=== PATIENT | male | born 1940 | race Caucasian/White ===

== ENCOUNTER 2020-07-27 12:43 | Emergency (ER) | payer MEDICARE, BC ==
[2020-07-27] MEDS ORDERED: Sodium Chloride 0.9% 10 ML Syringe FLUSH PRN (13:14)
[2020-07-27] MEDS ORDERED: Morphine 2 MG/ML SYRINGE IVPUSH ONE ×2 (13:14→14:57)
[2020-07-27] MEDS ORDERED: Ondansetron 4 MG/2 ML SDV IVPUSH ONE (13:14)
--- NOTE | 2020-07-27 13:31 | EDM.PDOC ---
ED HPI GENERAL MEDICAL PROBLEM - General Chief Complaint: Lower Extremity Injury/Pain Stated Complaint: FELL, UNABLE TO STAND Time Seen by Provider: 07/27/20 13:10 Source of Information: Reports: Patient History Limitations: Reports: No Limitations - History of Present Illness INITIAL COMMENTS - FREE TEXT/NARRATIVE: This 80 yo male patient reports to the ED with bilateral knee and bilateral shoulder pain. The patient reports his left leg "gave" out on him yesterday as he was walking out of his bedroom. The patient reports he ended up falling forward in his knees stopping his fall by using his arms. The patient reports he has experienced increased pain over the past 24 hours. The patient reports pain rated at a 10/10 in his left knee. Onset Date: 07/26/20 Duration: Constant, Getting Worse Location: Reports: Upper Extremity, Left (shoulder), Upper Extremity, Right (shoulder), Lower Extremity, Left (knee), Lower Extremity, Right (knee) Quality: Reports: Ache Severity: Moderate Improves with: Reports: None Worsens with: Reports: None Context: Reports: Activity (ground level fall) Associated Symptoms: Reports: No Other Symptoms Bilateral Knee Pain Score (Numeric/FACES): 10 - Related Data Allergies Allergy/AdvReac Type Severity Reaction Status Date / Time No Known Allergies Allergy Verified 07/27/20 13:01 Home Meds: Home Meds Aspirin [Halfprin] 81 mg PO DAILY 06/16/13 [History] Benazepril [Lotensin] 20 mg PO DAILY 06/16/13 [History] Omeprazole 20 mg PO DAILY 06/16/13 [History] amLODIPine [Norvasc] 5 mg PO DAILY 06/16/13 [History] hydroCHLOROthiazide [Hydrochlorothiazide] 25 mg PO DAILY 06/16/13 [History] Colestipol [Colestipol HCl] 1 gm PO DAILY 07/27/20 [History] Ezetimibe [Zetia] 10 mg PO DAILY 07/27/20 [History] Furosemide 20 mg PO DAILY 07/27/20 [History] Metoprolol Succinate 25 mg PO DAILY 07/27/20 [History] cilostazoL [Pletal] 100 mg PO DAILY 07/27/20 [History] Review of Systems - Review of Systems Review Of Systems: Comprehensive ROS is negative, except as noted in HPI. ED EXAM, GENERAL - Physical Exam Exam: See Below Exam Limited By: No Limitations General Appearance: Alert, WD/WN, Moderate Distress Eye Exam: Bilateral Eye: EOMI, Normal Inspection, PERRL Ears: Normal External Exam, Normal Canal, Hearing Grossly Normal, Normal TMs Nose: Normal Inspection, Normal Mucosa, No Blood Throat/Mouth: Normal Inspection, Normal Lips, Normal Teeth, Normal Gums, Normal Oropharynx, Normal Voice, No Airway Compromise Head: Atraumatic, Normocephalic Neck: Normal Inspection, Supple, Non-Tender, Full Range of Motion Respiratory/Chest: No Respiratory Distress, Lungs Clear, Normal Breath Sounds, No Accessory Muscle Use, Chest Non-Tender Cardiovascular: Normal Peripheral Pulses, Regular Rate, Rhythm, No Edema, No Gallop, No JVD, No Murmur, No Rub GI/Abdominal: Normal Bowel Sounds, Soft, Non-Tender, No Organomegaly, No Distention, No Abnormal Bruit, No Mass (Male) Exam: Deferred Rectal (Males) Exam: Deferred Back Exam: Normal Inspection, Full Range of Motion, NT Extremities: Normal Inspection, Normal Range of Motion, Non-Tender, Normal Capillary Refill, No Pedal Edema Neurological: Alert, Oriented, CN II-XII Intact, Normal Cognition, Normal Gait, Normal Reflexes, No Motor/Sensory Deficits Psychiatric: Normal Affect, Normal Mood Skin Exam: Warm, Dry, Intact, Normal Color, No Rash Lymphatic: No Adenopathy Course - Vital Signs Last Recorded V/S: Last Vital Signs Temp 37.4 C 07/27/20 12:57 Pulse 87 07/27/20 12:57 Resp 16 07/27/20 12:57 BP 112/58 L 07/27/20 12:57 Pulse Ox 99 07/27/20 12:57 - Orders/Labs/Meds Orders: Active Orders 24 hr Category Date Time Status Sodium Chloride 0.9% [Saline Flush] Med 07/27/20 13:14 Ordered 10 ml FLUSH ASDIRECTED PRN Saline Lock Insert [OM.PC] Routine Oth 07/27/20 13:14 Ordered Medication Orders Sodium Chloride (Saline Flush) 10 ml FLUSH ASDIRECTED PRN PRN Reason: Keep Vein Open Last Admin: 07/27/20 13:36 Dose: 10 ml Documented by: [email or web address] Meds: Medications Generic Name Dose Route Start Last Admin Trade Name Freq PRN Reason Stop Dose Admin Sodium Chloride 10 ml 07/27/20 13:14 07/27/20 13:36 Saline Flush FLUSH 10 ml ASDIRECTED PRN Administration Keep Vein Open Discontinued Medications Generic Name Dose Route Start Last Admin Trade Name Kvng PRN Reason Stop Dose Admin Hydrocodone Bitart/Acetaminophen 1 tab 07/27/20 14:57 [place] 325-10 Mg PO 07/27/20 14:58 ONETIME ONE Morphine Sulfate 2 mg 07/27/20 13:14 07/27/20 13:29 Morphine IVPUSH 07/27/20 13:15 2 mg ONETIME ONE Administration Morphine Sulfate 2 mg 07/27/20 14:57 Morphine IVPUSH 07/27/20 14:58 ONETIME ONE Ondansetron HCl 4 mg 07/27/20 13:14 07/27/20 13:29 Zofran IVPUSH 07/27/20 13:15 4 mg ONETIME ONE Administration Departure - Departure Time of Disposition: 14:59 Disposition: Home, Self-Care 01 Condition: Fair Clinical Impression: Strain of left knee Qualifiers: Encounter type: initial encounter Qualified Code(s): S86.912A - Strain of unspecified muscle(s) and tendon(s) at lower leg level, left leg, initial encounter Strain of right knee Qualifiers: Encounter type: initial encounter Qualified Code(s): S86.911A - Strain of unspecified muscle(s) and tendon(s) at lower leg level, right leg, initial encounter Contusion Qualifiers: Encounter type: initial encounter Contusion area: knee Laterality: unspecified laterality Qualified Code(s): S80.00XA - Contusion of unspecified knee, initial encounter - Discharge Information *PRESCRIPTION DRUG MONITORING PROGRAM REVIEWED*: Not Applicable *COPY OF PRESCRIPTION DRUG MONITORING REPORT IN PATIENT MIGUEL: Not Applicable Instructions: Contusion, [id number], How to Use a Knee Immobilizer, [id number] Forms: ED Department Discharge Care Plan Goals: The patient was advised of the examination and x-ray results during the visit. The patient was placed in a left knee immobilizer while in the ED. The patient was given IV and oral pain medications during the visit. The patient was discharged with a script for [place] () #12 to take 1 by mouth every hours as needed for pain. If the patient has any symptoms or concerns, the patient should either return to the emergency department or visit his primary care facility. Sepsis Event Note (ED) - Evaluation Sepsis Screening Result: No Definite Risk - Focused Exam Vital Signs: Vital Signs Temp Pulse Resp BP Pulse Ox 07/27/20 12:57 37.4 C 87 16 112/58 L 99 - My Orders Last 24 Hours: My Active Orders 07/27/20 13:14 Sodium Chloride 0.9% [Saline Flush] 10 ml FLUSH ASDIRECTED PRN Saline Lock Insert [OM.PC] Routine - Assessment/Plan Last 24 Hours: My Active Orders 07/27/20 13:14 Sodium Chloride 0.9% [Saline Flush] 10 ml FLUSH ASDIRECTED PRN Saline Lock Insert [OM.PC] Routine
--- NOTE | 2020-07-27 14:20 | CR ---
EXAMINATION: Shoulder Comp Lt SEX: Male AGE: 80 years CLINICAL HISTORY: 80-year-old male injured in ground-level fall. Interpretation: Normal bone mineral density for age and gender. Elevation humeral head relative to the glenoid of the scapula suggesting rotator cuff impingement and/or tear. No juxta articular rotator cuff tendon calcifications. Chronic mild arthritic reactive changes ipsilateral left acromioclavicular joint. No sign of acute left shoulder fracture or dislocation. Underlying ribs upper left hemithorax unremarkable. No pneumothorax.
--- NOTE | 2020-07-27 14:44 | CR ---
EXAMINATION: Shoulder 2 views Comp Rt SEX: Male AGE: 80 years CLINICAL HISTORY: 80-year-old male injured in ground-level fall. Interpretation: Abnormal elevation humeral head relative to the glenoid of the scapula suggests chronic rotator cuff degeneration or tear. No juxta-articular rotator cuff tendon calcifications (small Hill-Sachs deformity). Mild reactive arthritic changes ipsilateral acromioclavicular joint. Good bone mineral density for age and gender. No sign of acute right shoulder fracture or glenohumeral dislocation. Acromioclavicular joint intact. Underlying rib fractures upper right hemithorax. Right lung apex clear. No change artifact.
--- NOTE | 2020-07-27 14:47 | CR ---
EXAMINATION: Knee 3V Rt SEX: Male AGE: 80 years CLINICAL HISTORY: 80-year-old male injured knee ground-level fall. Interpretation: Homogeneous normal bone mineral density for age. Mild reactive arthritic changes involving the patellofemoral and knee joint (particularly medial compartment). Mild prepatellar soft tissue swelling. *No sign of right knee fracture, dislocation or radiopaque loose joint body. Extensive arteriovascular calcifications and fine surgical wire (stent) distal popliteal/proximal tibial artery posteriorly.
--- NOTE | 2020-07-27 14:48 | CR ---
EXAMINATION: Knee 3V Lt SEX: Male AGE: 80 years CLINICAL HISTORY: 6-year-old male injured in ground-level fall. Interpretation (3 views) while prepatellar soft tissue swelling and small left knee joint effusion. Chronic reactive arthritic changes patellofemoral and knee (medial) joint compartment. Good bone mineral density for age. No sign of left knee fracture, dislocation or radiopaque loose joint body. Extensive arteriovascular calcifications. No foreign bodies.
[2020-07-27] MEDS ORDERED: Acetaminophen/HYDROcodone 325-10 MG Tab PO ONE (14:57)
== END 2020-07-27 15:50 | disposition home or self-care (01) ==
LOC: DL.ED 12:43
DX: S86.911A Strain of unspecified muscle(s) and tendon(s) at lower leg level, right leg, initial encounter (principal); S86.912A Strain of unspecified muscle(s) and tendon(s) at lower leg level, left leg, initial encounter; Z79.82 Long term (current) use of aspirin; Z79.899 Other long term (current) drug therapy; W19.XXXA Unspecified fall, initial encounter
CPT/HCPCS: 73030; 73562; 96374; 96375; 96376; 99284; A9270; J2270; J2405; 99283

== ENCOUNTER 2020-07-28 10:34 | Inpatient (IN) | payer MEDICARE, BC ==
--- NOTE | 2020-07-28 11:33 | EDM.PDOC ---
ED HPI GENERAL MEDICAL PROBLEM - General Chief Complaint: Lower Extremity Injury/Pain Stated Complaint: CANT WALK Time Seen by Provider: 07/28/20 11:15 Source of Information: Reports: Patient History Limitations: Reports: No Limitations - History of Present Illness INITIAL COMMENTS - FREE TEXT/NARRATIVE: This 80 yo male patient was brought to the ED by [facility] due to increased pain in his knees and increased weakness in his upper extremities. The patient was seen in the ED yesterday due to a ground level fall. During the visit yesterday, the patient did have his knees and shoulders x-rayed, was placed in a left knee immobilizer and discharged with pain medication. The patient reports he has not been able to ambulate while at home due to the inability to get himself out of the bed. The patient does have a history of cervical stenosis as evidenced on previous CT/MRI. The patient also reports he has been having a difficult time with bowel movements due to constipation for the past couple of days. Onset Date: 07/27/20 Duration: Constant Location: Reports: Upper Extremity, Left, Upper Extremity, Right, Lower Extremity, Left, Lower Extremity, Right Quality: Reports: Ache, Sharp Severity: Moderate Improves with: Reports: Rest Worsens with: Reports: Movement Context: Reports: Activity Knee Pain Score (Numeric/FACES): 8 - Related Data Allergies Allergy/AdvReac Type Severity Reaction Status Date / Time No Known Allergies Allergy Verified 07/27/20 13:01 Home Meds: Home Meds Aspirin [Halfprin] 81 mg PO DAILY 06/16/13 [History] Benazepril [Lotensin] 20 mg PO DAILY 06/16/13 [History] Omeprazole 20 mg PO DAILY 06/16/13 [History] amLODIPine [Norvasc] 5 mg PO DAILY 06/16/13 [History] hydroCHLOROthiazide [Hydrochlorothiazide] 25 mg PO DAILY 06/16/13 [History] Colestipol [Colestipol HCl] 1 gm PO DAILY 07/27/20 [History] Ezetimibe [Zetia] 10 mg PO DAILY 07/27/20 [History] Furosemide 20 mg PO DAILY 07/27/20 [History] Metoprolol Succinate 25 mg PO DAILY 07/27/20 [History] cilostazoL [Pletal] 100 mg PO DAILY 07/27/20 [History] Past Medical History Cardiovascular History: Reports: Arrhythmia, Blood Clots/VTE/DVT, CAD, High Cholesterol, Hypertension Musculoskeletal History: Reports: Other (See Below) Other Musculoskeletal History: left knee sprain - Past Surgical History Cardiovascular Surgical History: Reports: Carotid Endarterectomy GI Surgical History: Reports: Appendectomy Social & Family History - Tobacco Use Tobacco Use Status *Q: Current Every Day Tobacco User Years of Tobacco use: 50 Packs/Tins Daily: 1 Second Hand Smoke Exposure: No - Caffeine Use Caffeine Use: Reports: Coffee - Recreational Drug Use Recreational Drug Use: No Review of Systems - Review of Systems Review Of Systems: Comprehensive ROS is negative, except as noted in HPI. ED EXAM, GENERAL - Physical Exam Exam: See Below Exam Limited By: No Limitations General Appearance: Alert, WD/WN, Moderate Distress Eye Exam: Bilateral Eye: EOMI, Normal Inspection, PERRL Ears: Normal External Exam, Normal Canal, Hearing Grossly Normal, Normal TMs Nose: Normal Inspection, Normal Mucosa, No Blood Throat/Mouth: Normal Inspection, Normal Lips, Normal Teeth, Normal Gums, Normal Oropharynx, Normal Voice, No Airway Compromise Head: Atraumatic, Normocephalic Neck: Normal Inspection, Supple, Non-Tender, Limited Range of Motion (chronic) Respiratory/Chest: No Respiratory Distress, Lungs Clear, Normal Breath Sounds, No Accessory Muscle Use, Chest Non-Tender Cardiovascular: Normal Peripheral Pulses, No Gallop, No JVD, No Murmur, No Rub, Irregularly Irregular GI/Abdominal: Normal Bowel Sounds, Soft, Non-Tender, No Organomegaly, No Distention, No Abnormal Bruit, No Mass (Male) Exam: Deferred Rectal (Males) Exam: Deferred Back Exam: Normal Inspection, Full Range of Motion, NT Extremities: Arm Pain (increased shoulder weakness and tenderness with movement. ), Leg Pain (bilateral knee pain (left worse than right)) Neurological: Alert, Oriented, CN II-XII Intact, Normal Cognition, Normal Gait, Normal Reflexes, No Motor/Sensory Deficits Psychiatric: Normal Affect, Normal Mood Skin Exam: Warm, Dry, Intact, Normal Color, No Rash Lymphatic: No Adenopathy Course - Vital Signs Last Recorded V/S: Last Vital Signs Temp 37.1 C 07/28/20 11:08 Pulse 99 07/28/20 11:08 Resp 16 07/28/20 11:08 BP 110/56 L 07/28/20 11:08 Pulse Ox 100 07/28/20 11:08 - Orders/Labs/Meds Orders: Active Orders 24 hr Category Date Time Status EKG Documentation Completion [RC] STAT Care 07/28/20 11:24 Active CULTURE URINE [RM] Urgent Lab 07/28/20 12:32 Received Labs: Laboratory Tests 07/28/20 07/28/20 07/28/20 Range/Units 11:39 11:39 12:32 WBC 11.9 H (5.0-10.0) 10^3/uL RBC 3.88 L (4.6-6.2) 10^6/uL Hgb 12.0 L (14.0-18.0) g/dL Hct 35.1 L (40.0-54.0) % MCV 90.5 (80-100) fL MCH 30.9 (27.0-34.0) pg MCHC 34.2 (33.0-35.0) g/dL Plt Count 225 (150-450) 10^3/uL Neut % (Auto) 73.5 (42.2-75.2) % Lymph % (Auto) 7.5 L (20.5-50.1) % Powell % (Auto) 18.4 H (2-8) % Eos % (Auto) 0.2 L (1.0-3.0) % Baso % (Auto) 0.4 (0.0-1.0) % Sodium 138 (136-145) mmol/L Potassium 4.3 (3.5-5.1) mmol/L Chloride 100 (98-107) mmol/L Carbon Dioxide 23 (21-32) mmol/L Anion Gap 19.3 H (7-13) mEq/L BUN 44 H (7-18) mg/dL Creatinine 1.37 H (0.70-1.30) mg/dL Est Cr Clr Drug Dosing 42.92 mL/min Estimated GFR (MDRD) 50 BUN/Creatinine Ratio 32.1 (No establ ref range) Glucose 97 (74-99) mg/dL Calcium 8.9 (8.5-10.1) mg/dL Total Bilirubin 1.3 H (0.2-1.0) mg/dL AST 40 H (15-37) U/L ALT 29 (16-63) U/L Alkaline Phosphatase 87 (46-116) U/L Troponin I 0.024 (0.000-0.056) ng/mL Total Protein 7.8 (6.4-8.2) g/dL Albumin 3.8 (3.4-5.0) g/dL Globulin 4.0 Albumin/Globulin Ratio 0.9 Urine Color Yellow (YELLOW) Urine Appearance Slightly cloudy (CLEAR) Urine pH 5.0 (5.0-9.0) Ur Specific Salome 1.020 (1.005-1.030) Urine Protein Trace H (NEGATIVE) Urine Glucose (UA) Negative (NEGATIVE) Urine Ketones Negative (NEGATIVE) Urine Occult Blood Trace-intact H (NEGATIVE) Urine Nitrite Negative (NEGATIVE) Urine Bilirubin Negative (NEGATIVE) Urine Urobilinogen 1.0 (0.2-1.0) mg/dL Ur Leukocyte Esterase Small H (NEGATIVE) Urine RBC 0-5 /HPF Urine WBC 0-5 (0-5/HPF) /HPF Ur Epithelial Cells Rare (NOT SEEN) /HPF Urine Bacteria Rare (0-FEW/HPF) /HPF Urine Mucus Not seen (NOT SEEN) /LPF - Re-Assessments/Exams Free Text/Narrative Re-Assessment/Exam: 07/28/20 14:33 Due to the patient's recent history of increased weakness, recent fall, increased difficulties doing ADLs and infiltrates seen on x-ray the patient will be admitted to the hospital. Departure - Departure Time of Disposition: 14:43 Disposition: Admitted As Inpatient 64 Condition: Fair Clinical Impression: Weakness Pneumonia Qualifiers: Pneumonia type: due to unspecified organism Laterality: bilateral Lung location: unspecified part of lung Qualified Code(s): J18.9 - Pneumonia, unspecified organism Fall Qualifiers: Encounter type: subsequent encounter Qualified Code(s): W19.XXXD - Unspecified fall, subsequent encounter Knee pain Qualifiers: Chronicity: acute Laterality: bilateral Qualified Code(s): M25.561 - Pain in right knee; M25.562 - Pain in left knee - Discharge Information *PRESCRIPTION DRUG MONITORING PROGRAM REVIEWED*: Not Applicable *COPY OF PRESCRIPTION DRUG MONITORING REPORT IN PATIENT MIGUEL: Not Applicable Forms: ED Department Discharge Care Plan Goals: Discussed the patient's history, examination, treatments and lab results with Dr. Bourgeois. Dr. Bourgeois accepted the patient for continued evaluation and management as an inpatient at [facility]. Sepsis Event Note (ED) - Evaluation Sepsis Screening Result: No Definite Risk - Focused Exam Vital Signs: Vital Signs Temp Pulse Resp BP Pulse Ox 07/28/20 11:08 37.1 C 99 16 110/56 L 100 - My Orders Last 24 Hours: My Active Orders 07/28/20 11:24 EKG Documentation Completion [RC] STAT 07/28/20 12:32 CULTURE URINE [RM] Urgent - Assessment/Plan Last 24 Hours: My Active Orders 07/28/20 11:24 EKG Documentation Completion [RC] STAT 07/28/20 12:32 CULTURE URINE [RM] Urgent
[2020-07-28 12:07] LABS: ANION GAP 19.3 mEq/L (7-13)
--- NOTE | 2020-07-28 12:52 | CT ---
EXAMINATION: Cervical Spine wo Cont SEX: Male AGE: 80 years CLINICAL HISTORY: 80-year-old hypertensive 200 pound male smoker injured in ground-level fall (2 days ago). Bilateral upper extremity weakness. Scan technique: Volume acquisition of data emergency unenhanced CT scan of the cervical spine obtained with the patient lying supine on the Siemens multi slice scanner [place], [place]. All data archived in the PACS system for storage, reformatting axial/sagittal/coronal planes and study. Interpretation: Abnormal. 1. *Unusually tight focal mid cervical spinal canal stenosis at the C3-4 level reflecting increased anterolisthesis C4 (compared MRI images 14 December 2009) and large bony exostosis arising off the laminar arch, posteriorly (spur encroaching on the spinal canal and underlying spinal cord). Cord contusion? 2. Osteopenia. 3. Extensive facet joint sclerosis at multiple levels posterior laterally. 4. Chronic severe cervical disc degeneration i.e. joint space narrowing, reactive sclerosis and marginal spondylosis at the C3-4, C4-5, and T1-2 levels. 5. *No prevertebral soft tissue swelling, acute cervical fracture or other dislocation. No jumped locked facets. 6. No cervical rib anomalies. No pathologic skeletal lesions. Lung apices clear.
--- NOTE | 2020-07-28 14:27 | CR ---
EXAMINATION: Chest 2V SEX: Male AGE: 80 years CLINICAL HISTORY: 80-year-old male recent ground-level fall, elevated wbc and increased weakness. Cervical stenosis. Comparison CT chest April 2018. Interpretation: (Upright AP and lateral CXR) 1. Cardiomegaly and enlarged heart. 2. Pericardial calcifications bilaterally and extensive pleural calcifications both hemithoraces. 3. Large hiatus hernia lower middle mediastinum. 4. *Right middle lobe atelectasis or pneumonic infiltrate silhouetting the heart border. Aspiration? Clinical? 5. No new parenchymal lung mass lesion, hilar lymphadenopathy, or other focal lobar consolidation i.e. no alveolar infiltrate, "air bronchograms", or peripheral interstitial "groundglass" lung densities. 6. No pneumothorax or pneumomediastinum.
[2020-07-28] MEDS ORDERED: Furosemide 20 MG Tab PO SCH (17:00)
[2020-07-28] MEDS ORDERED: amLODIPine 5 MG Tab PO SCH (17:00)
[2020-07-28] MEDS ORDERED: Hydrochlorothiazide 25 MG Tab PO SCH (17:00)
[2020-07-28] MEDS ORDERED: Metoprolol Succinate 25 MG Tab.ER PO SCH (17:00)
[2020-07-28] MEDS ORDERED: Benazepril 10 MG Tab PO SCH (17:00)
[2020-07-28] MEDS: Aspirin 81 MG Tab.EC PO SCH (17:15)
[2020-07-28] MEDS: Omeprazole 20 MG Cap.CR PO SCH (17:16)
[2020-07-28] MEDS: Acetaminophen 325 MG Tab PO SCH ×2 (17:16→23:54)
[2020-07-28] MEDS: Ezetimibe 10 MG Tab PO SCH (17:19)
[2020-07-28] MEDS: Ketorolac 30 MG/ML SDV IVPUSH PRN ×2 (17:26→23:56)
[2020-07-28] MEDS ORDERED: Warfarin 2.5 MG Tab PO ONE (18:17)
[2020-07-28] MEDS: Nicotine 14 MG/24 Hr Patch TRDERM SCH (18:49)
--- NOTE | 2020-07-28 18:53 | PCM.HP ---
H&P History of Present Illness - General Date of Service: 07/28/20 Admit Problem/Dx: Admission Diagnosis/Problem Admission Diagnosis/Problem Pneumonia - History of Present Illness Initial Comments - Free Text/Narative: 80M w/ pmh HT, 'arrhythmia', HL p/w weakness and inability to ambulate. Pt had fallen at home 2 days ago. He says left knee just 'gave out' and fell on both knees forward and caught himself w/ both arms out. In the process the left knee bent backwards. He was able to get up w/ lots of pain. Next day he had severe pain w/ weight bearing and visited the ER. Work up was negative for fracture and he was discharged home w/ symptomatic care. He returns today w/ total inability to bear weight on LLE due to knee pain. He also c/o significant pain and weakness in the b/l upper ext and generalized weakness. ER work up again unremarkable for MSK injuries but w/ possible right base pneumonia on CXR. He lives alone. Pt requires in-patient admission given CURB65 score of 2, inability to bear weight, inability to fill rx, inability care for self. Knee Pain Score (Numeric/FACES): 8 - Related Data Allergies/Adverse Reactions: Allergies Allergy/AdvReac Type Severity Reaction Status Date / Time No Known Allergies Allergy Verified 07/27/20 13:01 Home Medications: Home Meds Aspirin [Halfprin] 81 mg PO DAILY 06/16/13 [History] Benazepril [Lotensin] 40 mg PO DAILY 06/16/13 [History] Omeprazole 20 mg PO DAILY 06/16/13 [History] amLODIPine [Norvasc] 10 mg PO DAILY 06/16/13 [History] hydroCHLOROthiazide [Hydrochlorothiazide] 25 mg PO DAILY 06/16/13 [History] Colestipol [Colestipol HCl] 1 gm PO DAILY 07/27/20 [History] Ezetimibe [Zetia] 10 mg PO DAILY 07/27/20 [History] Furosemide 20 mg PO DAILY PRN 07/27/20 [History] Metoprolol Succinate 25 mg PO DAILY 07/27/20 [History] cilostazoL [Pletal] 100 mg PO DAILY 07/27/20 [History] Warfarin [Coumadin] 2.5 mg PO ASDIRECTED 07/28/20 [History] Warfarin [Coumadin] 5 mg PO ASDIRECTED 07/28/20 [History] Past Medical History HEENT History: Reports: Impaired Vision Cardiovascular History: Reports: Arrhythmia, Blood Clots/VTE/DVT, CAD, High Cholesterol, Hypertension Respiratory History: Reports: None Gastrointestinal History: Reports: None Genitourinary History: Reports: None Musculoskeletal History: Reports: Other (See Below) Other Musculoskeletal History: left knee sprain Neurological History: Reports: None Psychiatric History: Reports: None Endocrine/Metabolic History: Reports: None Hematologic History: Reports: None Immunologic History: Reports: None Oncologic (Cancer) History: Reports: None Dermatologic History: Reports: None - Infectious Disease History Infectious Disease History: Reports: None - Past Surgical History HEENT Surgical History: Reports: Cataract Surgery Cardiovascular Surgical History: Reports: Carotid Endarterectomy Respiratory Surgical History: Reports: None GI Surgical History: Reports: Appendectomy Male Surgical History: Reports: None Neurological Surgical History: Reports: None Musculoskeletal Surgical History: Reports: None Social & Family History - Family History Family Medical History: No Pertinent Family History - Tobacco Use Tobacco Use Status *Q: Current Every Day Tobacco User Years of Tobacco use: 50 Packs/Tins Daily: 1 Second Hand Smoke Exposure: No - Caffeine Use Caffeine Use: Reports: Coffee - Recreational Drug Use Recreational Drug Use: No H&P Review of Systems - Review of Systems: Review Of Systems: See Below General: Reports: Malaise. Denies: Weakness HEENT: Denies: Visual Changes Pulmonary: Denies: Shortness of Breath Cardiovascular: Denies: Chest Pain Gastrointestinal: Denies: Abdominal Pain Genitourinary: Denies: Dysuria Musculoskeletal: Reports: Joint Pain (left knee) Skin: Denies: Diaphoresis Psychiatric: Denies: Depression Neurological: Denies: Confusion Exam - Exam Exam: See Below - Vital Signs Vital Signs: Last Vital Signs Temp 99.1 F 07/28/20 16:18 Pulse 99 07/28/20 17:19 Resp 18 07/28/20 16:18 BP 110/60 07/28/20 17:19 Pulse Ox 98 07/28/20 16:18 Weight: 177 lb 6.4 oz - Exam Quality Assessment: No: Supplemental Oxygen General: Alert, Oriented HEENT: Conjunctiva Clear Neck: Supple Lungs: Other (faint bibasilar rales) Cardiovascular: Regular Rate, Regular Rhythm GI/Abdominal Exam: Normal Bowel Sounds, Soft, Non-Tender, No Distention Back Exam: Normal Inspection, Full Range of Motion Extremities: Other (left knee w/ suprapatellar effusion, active ROM limited due to pain, also swelling or effusion in popliteal fossa) Skin: Warm, Dry, Intact Neurological: Cranial Nerves Intact Neuro Extensive - Mental Status: Alert, Oriented x3, Normal Mood/Affect Neuro Extensive - Motor, Sensory, Reflexes: CN II-XII Intact Psychiatric: Alert, Normal Affect, Normal Mood - Patient Data Lab Results Last 24 hrs: Laboratory Results - last 24 hr 07/28/20 07/28/20 07/28/20 Range/Units 11:39 11:39 12:32 WBC 11.9 H (5.0-10.0) 10^3/uL RBC 3.88 L (4.6-6.2) 10^6/uL Hgb 12.0 L (14.0-18.0) g/dL Hct 35.1 L (40.0-54.0) % MCV 90.5 (80-100) fL MCH 30.9 (27.0-34.0) pg MCHC 34.2 (33.0-35.0) g/dL Plt Count 225 (150-450) 10^3/uL Neut % (Auto) 73.5 (42.2-75.2) % Lymph % (Auto) 7.5 L (20.5-50.1) % Wilson % (Auto) 18.4 H (2-8) % Eos % (Auto) 0.2 L (1.0-3.0) % Baso % (Auto) 0.4 (0.0-1.0) % Sodium 138 (136-145) mmol/L Potassium 4.3 (3.5-5.1) mmol/L Chloride 100 (98-107) mmol/L Carbon Dioxide 23 (21-32) mmol/L Anion Gap 19.3 H (7-13) mEq/L BUN 44 H (7-18) mg/dL Creatinine 1.37 H (0.70-1.30) mg/dL Est Cr Clr Drug Dosing 42.92 mL/min Estimated GFR (MDRD) 50 BUN/Creatinine Ratio 32.1 (No establ ref range) Glucose 97 (74-99) mg/dL Calcium 8.9 (8.5-10.1) mg/dL Total Bilirubin 1.3 H (0.2-1.0) mg/dL AST 40 H (15-37) U/L ALT 29 (16-63) U/L Alkaline Phosphatase 87 (46-116) U/L Troponin I 0.024 (0.000-0.056) ng/mL Total Protein 7.8 (6.4-8.2) g/dL Albumin 3.8 (3.4-5.0) g/dL Globulin 4.0 Albumin/Globulin Ratio 0.9 Urine Color Yellow (YELLOW) Urine Appearance Slightly cloudy (CLEAR) Urine pH 5.0 (5.0-9.0) Ur Specific [place] 1.020 (1.005-1.030) Urine Protein Trace H (NEGATIVE) Urine Glucose (UA) Negative (NEGATIVE) Urine Ketones Negative (NEGATIVE) Urine Occult Blood Trace-intact H (NEGATIVE) Urine Nitrite Negative (NEGATIVE) Urine Bilirubin Negative (NEGATIVE) Urine Urobilinogen 1.0 (0.2-1.0) mg/dL Ur Leukocyte Esterase Small H (NEGATIVE) Urine RBC 0-5 /HPF Urine WBC 0-5 (0-5/HPF) /HPF Ur Epithelial Cells Rare (NOT SEEN) /HPF Urine Bacteria Rare (0-FEW/HPF) /HPF Urine Mucus Not seen (NOT SEEN) /LPF SARS CoV-2 RNA Rapid HIGINIO (NEGATIVE) 07/28/20 Range/Units 15:00 WBC (5.0-10.0) 10^3/uL RBC (4.6-6.2) 10^6/uL Hgb (14.0-18.0) g/dL Hct (40.0-54.0) % MCV (80-100) fL MCH (27.0-34.0) pg MCHC (33.0-35.0) g/dL Plt Count (150-450) 10^3/uL Neut % (Auto) (42.2-75.2) % Lymph % (Auto) (20.5-50.1) % Wilson % (Auto) (2-8) % Eos % (Auto) (1.0-3.0) % Baso % (Auto) (0.0-1.0) % Sodium (136-145) mmol/L Potassium (3.5-5.1) mmol/L Chloride (98-107) mmol/L Carbon Dioxide (21-32) mmol/L Anion Gap (7-13) mEq/L BUN (7-18) mg/dL Creatinine (0.70-1.30) mg/dL Est Cr Clr Drug Dosing mL/min Estimated GFR (MDRD) BUN/Creatinine Ratio (No establ ref range) Glucose (74-99) mg/dL Calcium (8.5-10.1) mg/dL Total Bilirubin (0.2-1.0) mg/dL AST (15-37) U/L ALT (16-63) U/L Alkaline Phosphatase (46-116) U/L Troponin I (0.000-0.056) ng/mL Total Protein (6.4-8.2) g/dL Albumin (3.4-5.0) g/dL Globulin Albumin/Globulin Ratio Urine Color (YELLOW) Urine Appearance (CLEAR) Urine pH (5.0-9.0) Ur Specific [place] (1.005-1.030) Urine Protein (NEGATIVE) Urine Glucose (UA) (NEGATIVE) Urine Ketones (NEGATIVE) Urine Occult Blood (NEGATIVE) Urine Nitrite (NEGATIVE) Urine Bilirubin (NEGATIVE) Urine Urobilinogen (0.2-1.0) mg/dL Ur Leukocyte Esterase (NEGATIVE) Urine RBC /HPF Urine WBC (0-5/HPF) /HPF Ur Epithelial Cells (NOT SEEN) /HPF Urine Bacteria (0-FEW/HPF) /HPF Urine Mucus (NOT SEEN) /LPF SARS CoV-2 RNA Rapid HIGINIO Negative (NEGATIVE) Result Diagrams: 07/28/20 11:39 07/28/20 11:39 Problem List Initiated/Reviewed/Updated: No Orders Last 24hrs: Active Orders 24 hr Category Date Time Status Admission Diagnosis [ADT] Urgent ADT 07/28/20 14:47 Ordered Admission Status [Patient Status] [ADT] Routine ADT 07/28/20 14:47 Active Patient Status [ADT] Routine ADT 07/28/20 15:59 Active Antiembolic Devices [RC] Care 07/28/20 16:00 Active Communication Order [RC] Care 07/28/20 16:52 Active Oxygen Therapy [RC] .PRN Care 07/28/20 15:59 Active Up With Assistance [RC] ASDIRECTED Care 07/28/20 15:55 Active VTE/DVT Education [RC] PER UNIT ROUTINE Care 07/28/20 15:59 Active Vital Signs [RC] 00,04,08,12,16,20 Care 07/28/20 15:59 Active PT Evaluation and Treatment [CONS] Routine Cons 07/28/20 15:55 Active Heart Healthy Diet [DIET] Diet 07/28/20 Dinner Active CULTURE URINE [RM] Urgent Lab 07/28/20 12:32 Received Acetaminophen [TylenoL] Med 07/28/20 16:00 Active 975 mg PO Q8H Amoxicillin/Clavulanate K [Augmentin 875 MG/125 MG] Med 07/28/20 21:00 Active 1 tab PO Q12HR Aspirin [Halfprin] Med 07/28/20 17:00 Active 81 mg PO DAILY Benazepril [Lotensin] Med 07/28/20 17:00 Active 20 mg PO DAILY Ezetimibe [Zetia] Med 07/28/20 17:00 Active 10 mg PO DAILY Furosemide [Lasix] Med 07/28/20 17:00 Active 20 mg PO DAILY Ibuprofen [Motrin] Med 07/28/20 15:55 Active 400 mg PO Q6H PRN Ketorolac [Toradol] Med 07/28/20 15:55 Active 30 mg IVPUSH Q6H PRN Metoprolol Succinate [Toprol XL] Med 07/28/20 17:00 Active 25 mg PO DAILY Nicotine [Habitrol] Med 07/28/20 18:30 Active 14 mg TRDERM DAILY Omeprazole Med 07/28/20 17:00 Active 20 mg PO ACBRK Remove Patch Med 07/28/20 18:30 Active 1 ea TRDERM Q24H amLODIPine [Norvasc] Med 07/28/20 17:00 Active 5 mg PO DAILY cilostazoL [Pletal] Med 07/28/20 17:00 Pending 100 mg PO DAILY hydroCHLOROthiazide Med 07/28/20 17:00 Active 25 mg PO DAILY Antiembolic Hose [OM.PC] Per Unit Routine Oth 07/28/20 16:00 Ordered Resuscitation Status Routine Resus Stat 07/28/20 15:55 Ordered Medication Orders Acetaminophen (Tylenol) 975 mg PO Q8H [facility] Last Admin: 07/28/20 17:16 Dose: 975 mg Documented by: INO Amlodipine Besylate (Norvasc) 5 mg PO DAILY [facility] Last Admin: 07/28/20 17:16 Dose: Not Given Documented by: INO Amoxicillin/Clavulanate Potassium (Augmentin 875 Mg/125 Mg) 1 tab PO Q12HR [facility] Aspirin (Halfprin) 81 mg PO DAILY [facility] Last Admin: 07/28/20 17:15 Dose: 81 mg Documented by: INO Benazepril HCl (Lotensin) 20 mg PO DAILY [facility] Last Admin: 07/28/20 17:16 Dose: Not Given Documented by: INO Ezetimibe (Zetia) 10 mg PO DAILY [facility] Last Admin: 07/28/20 17:19 Dose: 10 mg Documented by: INO Furosemide (Lasix) 20 mg PO DAILY [facility] Last Admin: 07/28/20 17:16 Dose: Not Given Documented by: INO Hydrochlorothiazide (Hydrochlorothiazide) 25 mg PO DAILY [facility] Last Admin: 07/28/20 17:16 Dose: Not Given Documented by: INO Ibuprofen (Motrin) 400 mg PO Q6H PRN PRN Reason: Pain (moderate 4-6) Ketorolac Tromethamine (Toradol) 30 mg IVPUSH Q6H PRN PRN Reason: Pain (severe 7-10) Last Admin: 07/28/20 17:26 Dose: 30 mg Documented by: INO Metoprolol Succinate (Toprol Xl) 25 mg PO DAILY [facility] Last Admin: 07/28/20 17:19 Dose: 25 mg Documented by: INO Miscellaneous Information (Remove Patch) 1 ea TRDERM Q24H [facility] Nicotine (Habitrol) 14 mg TRDERM DAILY [facility] Non-Formulary Medication (Cilostazol [Pletal]) 100 mg PO DAILY [facility] Omeprazole (Omeprazole) 20 mg PO ACBRK [facility] Last Admin: 07/28/20 17:16 Dose: 20 mg Documented by: INO Assessment/Plan Comment:: #possible pneumonia - pt minimally symptomatic but changes evident on CXR - RLL findings may be due to aspiration during fall - CURB65 score is 2 - will start abx #left knee effusion / pain / trauma - X-ray w/o fracture however physical exam is concerning for possible ligamental injury - will apply TORRIE wrap and ice - PT eval - will likely need MRI +/- orthopedics consult - may need rehab placement since he cannot bear weight on the knee at all - IV pain control needed w/ IV morphine and IV toradol #?afib - pt w/ hx 'arrhythmia' and on coumadin #HT - hold BP meds today except for toprol PPX - on coumadin Full code
[2020-07-28] MEDS ORDERED: Ampicillin/Sulbactam Na 1.5 GM in Sodium Chloride 0.9% 100 ML IV ONE (21:00)
[2020-07-28] MEDS ORDERED: Amoxicillin/Clavulanate K 875-125 MG Tab PO SCH (21:00)
[2020-07-29] MEDS ORDERED: Sodium Chloride 0.9% 1,000 ML IV ONE (00:05)
[2020-07-29] MEDS: Sodium Chloride 0.9% 1,000 ML IV SCH ×4 (01:37→17:04)
[2020-07-29] MEDS ORDERED: Midodrine 2.5 MG Tab PO ONE (02:00)
[2020-07-29] MEDS: Omeprazole 20 MG Cap.CR PO SCH (06:16)
[2020-07-29] MEDS ORDERED: CILOSTAZOL 100 MG PO SCH (09:00)
[2020-07-29] MEDS ORDERED: Enoxaparin 40 MG/0.4 ML Syringe SUBCUT SCH (09:00)
[2020-07-29] MEDS: Nicotine 14 MG/24 Hr Patch TRDERM SCH (09:56)
[2020-07-29] MEDS: Aspirin 81 MG Tab.EC PO SCH (09:56)
[2020-07-29] MEDS: Acetaminophen 325 MG Tab PO SCH ×2 (09:56→16:14)
[2020-07-29] MEDS: Ezetimibe 10 MG Tab PO SCH (09:57)
[2020-07-29] MEDS ORDERED: Bisacodyl 5 MG Tab PO ONE ×2 (12:34→15:00)
[2020-07-29] MEDS ORDERED: Docusate Sodium 100 MG Cap PO PRN (12:34)
[2020-07-29] MEDS ORDERED: Magnesium Citrate Solution 296 ML Bottle PO ONE (16:05)
[2020-07-29] MEDS ORDERED: Bisacodyl 10 MG Supp RECTAL ONE (16:05)
--- NOTE | 2020-07-29 17:12 | PCM.PN ---
- General Info Date of Service: 07/29/20 Admission Dx/Problem (Free Text): Hypotensive overnight. SBP 60 at some point. Responded w/ 2x NS bolus and 5 mg midodrine. Pt was seen and examined by me over night and remained asymptomatic throughout and maintained perfect mental status. No chest pain or dyspnea or nausea. Was noted ~500 cc in the bladder and req straight cath. - Patient Data Vitals - Most Recent: Last Vital Signs Temp 99.4 F 07/29/20 13:00 Pulse 74 07/29/20 13:00 Resp 18 07/29/20 13:00 BP 101/55 L 07/29/20 13:00 Pulse Ox 95 07/29/20 13:00 Weight - Most Recent: 177 lb 6.4 oz I&O - Last 24 Hours: Intake & Output 07/29/20 07/29/20 07/29/20 06:59 14:59 22:59 Intake Total 2000 505 Output Total 2100 Balance -100 505 Lab Results Last 24 Hours: Laboratory Results - last 24 hr 07/29/20 07/29/20 07/29/20 Range/Units 02:25 02:25 02:25 WBC 8.5 (5.0-10.0) 10^3/uL RBC 3.18 L (4.6-6.2) 10^6/uL Hgb 10.0 L D (14.0-18.0) g/dL Hct 29.1 L (40.0-54.0) % MCV 91.5 (80-100) fL MCH 31.4 (27.0-34.0) pg MCHC 34.4 (33.0-35.0) g/dL Plt Count 199 (150-450) 10^3/uL Neut % (Auto) 63.0 (42.2-75.2) % Lymph % (Auto) 17.2 L (20.5-50.1) % Weld % (Auto) 18.7 H (2-8) % Eos % (Auto) 0.9 L (1.0-3.0) % Baso % (Auto) 0.2 (0.0-1.0) % PT 20.2 H (9.0-12.0) SEC INR 2.2 H (0.9-1.2) Sodium 139 (136-145) mmol/L Potassium 4.0 (3.5-5.1) mmol/L Chloride 102 (98-107) mmol/L Carbon Dioxide 23 (21-32) mmol/L Anion Gap 18.0 H (7-13) mEq/L BUN 50 H (7-18) mg/dL Creatinine 2.12 H (0.70-1.30) mg/dL Est Cr Clr Drug Dosing 27.74 mL/min Estimated GFR (MDRD) 30 BUN/Creatinine Ratio 23.6 (No establ ref range) Glucose 107 H (74-99) mg/dL Lactic Acid (0.4-2.0) mmol/L Calcium 7.8 L (8.5-10.1) mg/dL Total Bilirubin 0.8 (0.2-1.0) mg/dL AST 42 H (15-37) U/L ALT 26 (16-63) U/L Alkaline Phosphatase 71 (46-116) U/L Troponin I 0.056 (0.000-0.056) ng/mL Total Protein 6.3 L (6.4-8.2) g/dL Albumin 2.9 L (3.4-5.0) g/dL Globulin 3.4 Albumin/Globulin Ratio 0.85 Blood Type Gel Antibody Screen 07/29/20 07/29/20 07/29/20 Range/Units 02:25 02:25 07:08 WBC 7.7 (5.0-10.0) 10^3/uL RBC 3.07 L (4.6-6.2) 10^6/uL Hgb 9.5 L (14.0-18.0) g/dL Hct 28.1 L (40.0-54.0) % MCV 91.5 (80-100) fL MCH 30.9 (27.0-34.0) pg MCHC 33.8 (33.0-35.0) g/dL Plt Count 197 (150-450) 10^3/uL Neut % (Auto) (42.2-75.2) % Lymph % (Auto) (20.5-50.1) % Weld % (Auto) (2-8) % Eos % (Auto) (1.0-3.0) % Baso % (Auto) (0.0-1.0) % PT (9.0-12.0) SEC INR (0.9-1.2) Sodium (136-145) mmol/L Potassium (3.5-5.1) mmol/L Chloride (98-107) mmol/L Carbon Dioxide (21-32) mmol/L Anion Gap (7-13) mEq/L BUN (7-18) mg/dL Creatinine (0.70-1.30) mg/dL Est Cr Clr Drug Dosing mL/min Estimated GFR (MDRD) BUN/Creatinine Ratio (No establ ref range) Glucose (74-99) mg/dL Lactic Acid 0.8 (0.4-2.0) mmol/L Calcium (8.5-10.1) mg/dL Total Bilirubin (0.2-1.0) mg/dL AST (15-37) U/L ALT (16-63) U/L Alkaline Phosphatase (46-116) U/L Troponin I (0.000-0.056) ng/mL Total Protein (6.4-8.2) g/dL Albumin (3.4-5.0) g/dL Globulin Albumin/Globulin Ratio Blood Type A POSITIVE Gel Antibody Screen Negative Med Orders - Current: Current Medications Acetaminophen (Tylenol) 975 mg PO Q8H [facility] Last Admin: 07/29/20 16:14 Dose: 975 mg Documented by: Aspirin (Halfprin) 81 mg PO DAILY [facility] Last Admin: 07/29/20 09:56 Dose: 81 mg Documented by: Docusate Sodium (Colace) 100 mg PO BID PRN PRN Reason: Constipation Last Admin: 07/29/20 15:17 Dose: 100 mg Documented by: Ezetimibe (Zetia) 10 mg PO DAILY [facility] Last Admin: 07/29/20 09:57 Dose: 10 mg Documented by: Sodium Chloride (Normal Saline) 1,000 mls @ 150 mls/hr IV ASDIRECTED [facility] Last Admin: 07/29/20 10:23 Dose: 150 mls/hr Documented by: Ibuprofen (Motrin) 400 mg PO Q6H PRN PRN Reason: Pain (moderate 4-6) Miscellaneous Information (Remove Patch) 1 ea TRDERM Q24H [facility] Last Admin: 07/28/20 19:07 Dose: Not Given Documented by: Nicotine (Habitrol) 14 mg TRDERM DAILY [facility] Last Admin: 07/29/20 09:56 Dose: 14 mg Documented by: Non-Formulary Medication (Cilostazol [Pletal]) 0 mg PO BID [facility] Omeprazole (Omeprazole) 20 mg PO ACBRK [facility] Last Admin: 07/29/20 06:16 Dose: 20 mg Documented by: Senna/Docusate Sodium (Senna Plus) 2 tab PO BEDTIME [facility] Discontinued Medications Amlodipine Besylate (Norvasc) 5 mg PO DAILY [facility] Last Admin: 07/28/20 17:16 Dose: Not Given Documented by: Amoxicillin/Clavulanate Potassium (Augmentin 875 Mg/125 Mg) 1 tab PO Q12HR [facility] Benazepril HCl (Lotensin) 20 mg PO DAILY [facility] Last Admin: 07/28/20 17:16 Dose: Not Given Documented by: Bisacodyl (Dulcolax) 10 mg PO ONETIME ONE Stop: 07/29/20 15:01 Last Admin: 07/29/20 15:17 Dose: 10 mg Documented by: Bisacodyl (Dulcolax) 10 mg RECTAL ONETIME ONE Stop: 07/29/20 16:06 Enoxaparin Sodium (Lovenox) 40 mg SUBCUT DAILY [facility] Furosemide (Lasix) 20 mg PO DAILY [facility] Last Admin: 07/28/20 17:16 Dose: Not Given Documented by: Hydrochlorothiazide (Hydrochlorothiazide) 25 mg PO DAILY [facility] Last Admin: 07/28/20 17:16 Dose: Not Given Documented by: Ampicillin Sodium/Sulbactam (Sodium 1.5 gm/ Sodium Chloride) 100 mls @ 200 mls/hr IV ONETIME ONE Stop: 07/28/20 21:29 Last Admin: 07/28/20 20:41 Dose: 200 mls/hr Documented by: Sodium Chloride (Normal Saline) 1,000 mls @ 999 mls/hr IV ONETIME ONE Stop: 07/29/20 01:05 Last Admin: 07/29/20 00:13 Dose: 999 mls/hr Documented by: Sodium Chloride (Normal Saline) 1,000 mls @ 100 mls/hr IV ASDIRECTED [facility] Last Infusion: 07/29/20 04:53 Dose: 150 mls/hr Documented by: Ketorolac Tromethamine (Toradol) 30 mg IVPUSH Q6H PRN PRN Reason: Pain (severe 7-10) Last Admin: 07/28/20 23:56 Dose: 30 mg Documented by: Magnesium Citrate (Citrate Of Magnesia) 296 ml PO ONETIME ONE Stop: 07/29/20 16:06 Metoprolol Succinate (Toprol Xl) 25 mg PO DAILY [facility] Last Admin: 07/28/20 17:19 Dose: 25 mg Documented by: Midodrine (Midodrine) 5 mg PO ONETIME ONE Stop: 07/29/20 02:01 Last Admin: 07/29/20 02:14 Dose: 5 mg Documented by: Cilostazol (Pletal) 100 Mg Tab Own Med 100 mg PO DAILY [facility] Warfarin Sodium (Coumadin) 2.5 mg PO ONETIME ONE Stop: 07/28/20 18:18 Last Admin: 07/28/20 18:49 Dose: 2.5 mg Documented by: - Exam Quality Assessment: No: Supplemental Oxygen General: Alert, Oriented HEENT: Pupils Equal Neck: Supple Lungs: Clear to Auscultation, Normal Respiratory Effort Cardiovascular: No Murmurs, Irregular Rhythm GI/Abdominal Exam: Normal Bowel Sounds, Soft, Non-Tender, No Distention Back Exam: Normal Inspection Extremities: Other (left knee w/ suprapatellar effusion, also tender swelling in left popliteal fossa, improved ROM today) Skin: Warm, Dry Neurological: No New Focal Deficit Psy/Mental Status: Alert, Normal Affect, Normal Mood - Patient Data Lab Results Last 24 hrs: Laboratory Results - last 24 hr 07/29/20 07/29/20 07/29/20 Range/Units 02:25 02:25 02:25 WBC 8.5 (5.0-10.0) 10^3/uL RBC 3.18 L (4.6-6.2) 10^6/uL Hgb 10.0 L D (14.0-18.0) g/dL Hct 29.1 L (40.0-54.0) % MCV 91.5 (80-100) fL MCH 31.4 (27.0-34.0) pg MCHC 34.4 (33.0-35.0) g/dL Plt Count 199 (150-450) 10^3/uL Neut % (Auto) 63.0 (42.2-75.2) % Lymph % (Auto) 17.2 L (20.5-50.1) % Weld % (Auto) 18.7 H (2-8) % Eos % (Auto) 0.9 L (1.0-3.0) % Baso % (Auto) 0.2 (0.0-1.0) % PT 20.2 H (9.0-12.0) SEC INR 2.2 H (0.9-1.2) Sodium 139 (136-145) mmol/L Potassium 4.0 (3.5-5.1) mmol/L Chloride 102 (98-107) mmol/L Carbon Dioxide 23 (21-32) mmol/L Anion Gap 18.0 H (7-13) mEq/L BUN 50 H (7-18) mg/dL Creatinine 2.12 H (0.70-1.30) mg/dL Est Cr Clr Drug Dosing 27.74 mL/min Estimated GFR (MDRD) 30 BUN/Creatinine Ratio 23.6 (No establ ref range) Glucose 107 H (74-99) mg/dL Lactic Acid (0.4-2.0) mmol/L Calcium 7.8 L (8.5-10.1) mg/dL Total Bilirubin 0.8 (0.2-1.0) mg/dL AST 42 H (15-37) U/L ALT 26 (16-63) U/L Alkaline Phosphatase 71 (46-116) U/L Troponin I 0.056 (0.000-0.056) ng/mL Total Protein 6.3 L (6.4-8.2) g/dL Albumin 2.9 L (3.4-5.0) g/dL Globulin 3.4 Albumin/Globulin Ratio 0.85 Blood Type Gel Antibody Screen 07/29/20 07/29/20 07/29/20 Range/Units 02:25 02:25 07:08 WBC 7.7 (5.0-10.0) 10^3/uL RBC 3.07 L (4.6-6.2) 10^6/uL Hgb 9.5 L (14.0-18.0) g/dL Hct 28.1 L (40.0-54.0) % MCV 91.5 (80-100) fL MCH 30.9 (27.0-34.0) pg MCHC 33.8 (33.0-35.0) g/dL Plt Count 197 (150-450) 10^3/uL Neut % (Auto) (42.2-75.2) % Lymph % (Auto) (20.5-50.1) % Weld % (Auto) (2-8) % Eos % (Auto) (1.0-3.0) % Baso % (Auto) (0.0-1.0) % PT (9.0-12.0) SEC INR (0.9-1.2) Sodium (136-145) mmol/L Potassium (3.5-5.1) mmol/L Chloride (98-107) mmol/L Carbon Dioxide (21-32) mmol/L Anion Gap (7-13) mEq/L BUN (7-18) mg/dL Creatinine (0.70-1.30) mg/dL Est Cr Clr Drug Dosing mL/min Estimated GFR (MDRD) BUN/Creatinine Ratio (No establ ref range) Glucose (74-99) mg/dL Lactic Acid 0.8 (0.4-2.0) mmol/L Calcium (8.5-10.1) mg/dL Total Bilirubin (0.2-1.0) mg/dL AST (15-37) U/L ALT (16-63) U/L Alkaline Phosphatase (46-116) U/L Troponin I (0.000-0.056) ng/mL Total Protein (6.4-8.2) g/dL Albumin (3.4-5.0) g/dL Globulin Albumin/Globulin Ratio Blood Type A POSITIVE Gel Antibody Screen Negative Result Diagrams: 07/29/20 07:08 07/29/20 02:25 Sepsis Event Note - Evaluation Sepsis Screening Result: No Definite Risk - Focused Exam Vital Signs: Vital Signs Temp Pulse Resp BP Pulse Ox 07/29/20 13:00 99.4 F 74 18 101/55 L 95 07/29/20 11:00 80 18 116/55 L 07/29/20 10:45 73 20 98/45 L 07/29/20 10:30 74 18 108/40 L 07/29/20 10:15 75 18 103/34 L 07/29/20 09:45 74 88/60 L 07/29/20 09:30 78 105/53 L 07/29/20 09:15 83 18 92/41 L 07/29/20 09:00 83 99/46 L 07/29/20 08:45 83 99/42 L 07/29/20 08:00 98.8 F 82 18 115/39 L 07/29/20 07:45 78 18 108/58 L 07/29/20 07:15 74 100/36 L 07/29/20 07:00 74 99/46 L - Problem List Review Problem List Initiated/Reviewed/Updated: No - My Orders Last 24 Hours: My Active Orders 07/28/20 16:52 Communication Order [RC] 07/28/20 17:00 Aspirin [Halfprin] 81 mg PO DAILY Ezetimibe [Zetia] 10 mg PO DAILY Omeprazole 20 mg PO ACBRK 07/28/20 18:30 Nicotine [Habitrol] 14 mg TRDERM DAILY Remove Patch 1 ea TRDERM Q24H 07/29/20 02:05 Telemetry Monitoring [Cardiac Monitoring] [RC] 07/29/20 02:15 Urinary Catheter Insertion [Insert Urinary Catheter] [OM.PC] Q24H 07/29/20 02:16 Urinary Catheter Assessment [RC] 07/29/20 02:18 Bladder Scan [RC] ASDIRECTED 07/29/20 02:25 CULTURE BLOOD [BC] Stat 07/29/20 02:59 Communication Order [RC] ROUTINE 07/29/20 04:50 Sodium Chloride 0.9% [Normal Saline] 1,000 ml IV ASDIRECTED 07/29/20 07:08 CORTISOL [REF] Routine 07/29/20 Lunch Regular Diet [DIET] 07/29/20 12:34 Docusate Sodium [Colace] 100 mg PO BID PRN 07/29/20 15:56 EKG 12 Lead [EKG Documentation Completion] [RC] URGENT 07/29/20 21:00 Docusate Sodium/Sennosides [Senna Plus] 2 tab PO BEDTIME cilostazoL [Pletal] 0 mg PO BID 08/01/20 08:00 Echo Comp wo Cont [US] Stat - Plan Plan:: #hypotension - overnight w/ persistent hypotension - at one point SBP noted 60 - all the while maintaining mentation and essentially asymptomatic - responded to midodrine and repeat fluid boluses - now settled SBP 100s - he adamantly denies any steroid use recently - denies any changes to his BP regimen - admits to 'not drinking enough water' - will hold ALL BP meds (he was on a mlodipine/HCTZ/lasix/benazapirl/toprol) - EKG done and reviewed w/ [facility] cardiology Dr Patel >>> afib and no heart block - will check echo and cortisol - hold off hydrocortisone given interval improvement - ddx includes dehydration vs polypharmacy vs adrenal insufficiency vs cardiogenic shock of indeterminate etiology - pt has improved significantly today - if there is relapse if hypotension will need to transfer for expedited work up - d/w pt and daughter at bedside this am #CITLALI - in setting of above - fluid resuscitation - repeat labs in pm #possible pneumonia - CXR reviewed / pt has no respirator symptoms - there is no pneumonia #left knee effusion / pain / trauma - improved w/ pain control and TORRIE wrap/ice - seen by PT >>> likely w/ hamstring/quad injury #?afib - hold coumadin - INR 2.2 #HT - hold BP meds PPX - on coumadin Full code
[2020-07-29 18:59] LABS: ANION GAP 20.5 mEq/L (7-13)
--- NOTE | 2020-07-29 20:11 | US ---
PROCEDURE INFORMATION: Exam: US Abdomen; Limited Exam date and time: 07/29/2020 7:08 PM Age: 80 years old Clinical indication: Other: Urinary retention, discomfort abdomen; Additional info: Kidney + bladder TECHNIQUE: Imaging protocol: US abdomen. Real time ultrasound with image documentation. Limited exam focused on the region of clinical interest. COMPARISON: No relevant prior studies available. FINDINGS: Gallbladder: There are gallstones present. No evidence of cholecystitis demonstrated. Common bile duct: The common bile duct measures 5.9 mm. No mass or choledocholithiasis. Right kidney: Right kidney measures 9.6 x 5.9 x 5.7 cm. Left kidney: Left kidney measures 10.2 x 5.9 x 5.9 cm. IMPRESSION: 1. There are gallstones present. No evidence of cholecystitis demonstrated. 2. No acute findings.
[2020-07-29] MEDS: Ibuprofen 400 MG Tab PO PRN (21:53)
[2020-07-29] MEDS: CILOSTAZOL PO SCH (22:00)
[2020-07-30] MEDS: Acetaminophen 325 MG Tab PO SCH ×5 (00:08→23:11)
[2020-07-30] MEDS: Sodium Chloride 0.9% 1,000 ML IV SCH ×3 (02:23→22:25)
[2020-07-30] MEDS: Ibuprofen 400 MG Tab PO PRN (05:13)
[2020-07-30] MEDS: Omeprazole 20 MG Cap.CR PO SCH (05:13)
[2020-07-30 06:26] LABS: ANION GAP 19.3 mEq/L (7-13)
[2020-07-30] MEDS: Ezetimibe 10 MG Tab PO SCH (09:28)
[2020-07-30] MEDS: Nicotine 14 MG/24 Hr Patch TRDERM SCH (09:30)
[2020-07-30] MEDS: Aspirin 81 MG Tab.EC PO SCH (09:30)
[2020-07-30] MEDS: CILOSTAZOL PO SCH ×2 (09:31→20:12)
--- NOTE | 2020-07-30 10:41 | CT ---
PROCEDURE INFORMATION: Exam: CT Lumbar Spine Without Contrast Exam date and time: 07/30/2020 10:08 AM Age: 80 years old Clinical indication: Low back pain; Additional info: Urinary retention S/P trauma - R/O spinal injury TECHNIQUE: Imaging protocol: Computed tomography images of the lumbar spine without contrast. Radiation optimization: All CT scans at this facility use at least one of these dose optimization techniques: automated exposure control; mA and/or kV adjustment per patient size (includes targeted exams where dose is matched to clinical indication); or iterative reconstruction. COMPARISON: No relevant prior studies available. FINDINGS: Vertebrae: Bones are diffusely demineralized. [id number] grade degenerative changes are present. No compression fractures are identified. L1-L2: No significant disc protrusion. No severe spinal canal stenosis. No significant neural foraminal narrowing. L2-L3: At L2-L3, [id number] grade endplate sclerosis and osteophyte formation present. Mild bilateral neural foraminal narrowing present. L3-L4: No significant disc protrusion. No severe spinal canal stenosis. No significant neural foraminal narrowing. L4-L5: At L4-L5, moderate amount of endplate sclerosis is present with osteophyte formation resulting in mild to moderate grade bilateral neural foraminal narrowing. L5-S1: No significant disc protrusion. No severe spinal canal stenosis. No significant neural foraminal narrowing. 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 Soft tissues: Unremarkable. IMPRESSION: 1. 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 No acute compression fracture identified. No evidence for spinal stenosis based on bony changes in the lumbar spine.
--- NOTE | 2020-07-30 10:45 | CT ---
PROCEDURE INFORMATION: Exam: CT Abdomen Without Contrast Exam date and time: 07/30/2020 10:08 AM Age: 80 years old Clinical indication: Abdominal pain; Additional info: R/O rp bleed TECHNIQUE: Imaging protocol: Computed tomography images of the abdomen without contrast. Radiation optimization: All CT scans at this facility use at least one of these dose optimization techniques: automated exposure control; mA and/or kV adjustment per patient size (includes targeted exams where dose is matched to clinical indication); or iterative reconstruction. COMPARISON: Abdomen [facility] 07/29/2020 7:08 PM FINDINGS: Pleural space: Small pleural effusions are present bilaterally with calcifications along the pleura and diaphragmatic surfaces compatible with prior asbestos exposure. Mediastinal space: Moderate size hiatal hernia is present. Liver: Normal. No mass. Gallbladder and bile ducts: Normal. No calcified stones. No ductal dilation. Pancreas: Normal. No ductal dilation. Spleen: Normal. No splenomegaly. Adrenals: A lesion is present arising from the left adrenal gland. This measures approximately 2.2 x 1.7 cm and has internal Hounsfield units less than 10. This is compatible with an adenoma which could be functional or nonfunctional. Kidneys and ureters: Normal. No hydronephrosis. Stomach and bowel: Multiple diverticula are present within the descending and sigmoid colon. No active diverticulitis identified. Intraperitoneal space: Unremarkable. No free air. No significant fluid collection. Lymph nodes: Unremarkable. No enlarged lymph nodes. Vasculature: Moderate to advanced atherosclerotic calcification of the abdominal aorta is present. No aneurysm is identified. Bones/joints: Moderate grade degenerative changes are noted within the lumbar spine. No fractures are identified. Pubic rami appear to be intact. Soft tissues: Unremarkable. IMPRESSION: 1. No acute intra-abdominal or intrapelvic injury identified. No evidence for retroperitoneal hematoma. 2. 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 3. Diverticulosis without evidence for active diverticulitis. 4. Moderate size hiatal hernia. 5. Bilateral pleural effusions and pleural and diaphragmatic calcifications compatible with prior asbestos posterior.
--- NOTE | 2020-07-30 11:01 | PCM.PN ---
- General Info Date of Service: 07/30/20 Admission Dx/Problem (Free Text): More strength. Feels better. Good b/l upper and lower extremity strength. Denies back pain. Was able to stand and walk w/ walker on own power. L knee pain improved. BP now normal. HR controlled. No bleeding noted. Still unable to void completely. Occasionally will void ~100 cc but last night was straight cath for ~700 cc. - Patient Data Vitals - Most Recent: Last Vital Signs Temp 99.2 F 07/30/20 04:00 Pulse 81 07/30/20 04:00 Resp 18 07/30/20 04:00 BP 112/49 L 07/30/20 04:00 Pulse Ox 93 L 07/30/20 04:00 Weight - Most Recent: 177 lb 6.4 oz I&O - Last 24 Hours: Intake & Output 07/29/20 07/30/20 07/30/20 22:59 06:59 14:59 Intake Total 1134 1487 Output Total 800 600 300 Balance 334 887 -300 Lab Results Last 24 Hours: Laboratory Results - last 24 hr 07/29/20 07/30/20 07/30/20 Range/Units 18:35 05:30 05:30 WBC 6.9 (5.0-10.0) 10^3/uL RBC 2.96 L (4.6-6.2) 10^6/uL Hgb 9.0 L (14.0-18.0) g/dL Hct 27.4 L (40.0-54.0) % MCV 92.6 (80-100) fL MCH 30.4 (27.0-34.0) pg MCHC 32.8 L (33.0-35.0) g/dL Plt Count 205 (150-450) 10^3/uL PT 14.9 H (9.0-12.0) SEC INR 1.6 H (0.9-1.2) Sodium 137 (136-145) mmol/L Potassium 4.5 (3.5-5.1) mmol/L Chloride 103 (98-107) mmol/L Carbon Dioxide 18 L (21-32) mmol/L Anion Gap 20.5 H (7-13) mEq/L BUN 53 H (7-18) mg/dL Creatinine 1.64 H (0.70-1.30) mg/dL Est Cr Clr Drug Dosing 35.86 mL/min Estimated GFR (MDRD) 40 Glucose 113 H (74-99) mg/dL Calcium 8.2 L (8.5-10.1) mg/dL Phosphorus (2.6-4.7) mg/dL Magnesium (1.8-2.4) mg/dL B-Natriuretic Peptide (0-100) pg/ml 07/30/20 Range/Units 05:30 WBC (5.0-10.0) 10^3/uL RBC (4.6-6.2) 10^6/uL Hgb (14.0-18.0) g/dL Hct (40.0-54.0) % MCV (80-100) fL MCH (27.0-34.0) pg MCHC (33.0-35.0) g/dL Plt Count (150-450) 10^3/uL PT (9.0-12.0) SEC INR (0.9-1.2) Sodium 141 (136-145) mmol/L Potassium 4.3 (3.5-5.1) mmol/L Chloride 107 (98-107) mmol/L Carbon Dioxide 19 L (21-32) mmol/L Anion Gap 19.3 H (7-13) mEq/L BUN 44 H (7-18) mg/dL Creatinine 1.42 H (0.70-1.30) mg/dL Est Cr Clr Drug Dosing 41.41 mL/min Estimated GFR (MDRD) 48 Glucose 157 H (74-99) mg/dL Calcium 7.7 L (8.5-10.1) mg/dL Phosphorus 2.7 (2.6-4.7) mg/dL Magnesium 2.2 (1.8-2.4) mg/dL B-Natriuretic Peptide 193 H (0-100) pg/ml Db Results Last 24 Hours: Microbiology 07/30/20 09:00 Stool Occult Blood (DB) - Final Stool / Feces NEGATIVE OCCULT BLOOD REFERENCE RANGE: NEGATIVE 07/29/20 02:25 Aerobic Blood Culture - Preliminary Blood - Arm, Left NO GROWTH AFTER 1 DAY Anaerobic Blood Culture - Preliminary NO GROWTH AFTER 1 DAY Med Orders - Current: Current Medications Acetaminophen (Tylenol) 975 mg PO Q8H [facility] Last Admin: 07/30/20 09:28 Dose: 975 mg Documented by: Aspirin (Halfprin) 81 mg PO DAILY [facility] Last Admin: 07/30/20 09:30 Dose: 81 mg Documented by: Docusate Sodium (Colace) 100 mg PO BID PRN PRN Reason: Constipation Last Admin: 07/29/20 15:17 Dose: 100 mg Documented by: Ezetimibe (Zetia) 10 mg PO DAILY [facility] Last Admin: 07/30/20 09:28 Dose: 10 mg Documented by: Sodium Chloride (Normal Saline) 1,000 mls @ 100 mls/hr IV ASDIRECTED [facility] Ibuprofen (Motrin) 400 mg PO Q6H PRN PRN Reason: Pain (moderate 4-6) Last Admin: 07/30/20 05:13 Dose: 400 mg Documented by: Nicotine (Habitrol) 14 mg TRDERM DAILY [facility] Last Admin: 07/30/20 09:30 Dose: 14 mg Documented by: Non-Formulary Medication (Cilostazol [Pletal]) 0 mg PO BID [facility] Last Admin: 07/30/20 09:31 Dose: 100 mg Documented by: Omeprazole (Omeprazole) 20 mg PO ACBRK [facility] Last Admin: 07/30/20 05:13 Dose: 20 mg Documented by: Senna/Docusate Sodium (Senna Plus) 2 tab PO BEDTIME [facility] Last Admin: 07/29/20 21:54 Dose: 2 tab Documented by: Discontinued Medications Amlodipine Besylate (Norvasc) 5 mg PO DAILY [facility] Last Admin: 07/28/20 17:16 Dose: Not Given Documented by: Amoxicillin/Clavulanate Potassium (Augmentin 875 Mg/125 Mg) 1 tab PO Q12HR [facility] Benazepril HCl (Lotensin) 20 mg PO DAILY [facility] Last Admin: 07/28/20 17:16 Dose: Not Given Documented by: Bisacodyl (Dulcolax) 10 mg PO ONETIME ONE Stop: 07/29/20 15:01 Last Admin: 07/29/20 15:17 Dose: 10 mg Documented by: Bisacodyl (Dulcolax) 10 mg RECTAL ONETIME ONE Stop: 07/29/20 16:06 Last Admin: 07/29/20 16:33 Dose: 10 mg Documented by: Enoxaparin Sodium (Lovenox) 40 mg SUBCUT DAILY [facility] Furosemide (Lasix) 20 mg PO DAILY [facility] Last Admin: 07/28/20 17:16 Dose: Not Given Documented by: Hydrochlorothiazide (Hydrochlorothiazide) 25 mg PO DAILY [facility] Last Admin: 07/28/20 17:16 Dose: Not Given Documented by: Ampicillin Sodium/Sulbactam (Sodium 1.5 gm/ Sodium Chloride) 100 mls @ 200 mls/hr IV ONETIME ONE Stop: 07/28/20 21:29 Last Admin: 07/28/20 20:41 Dose: 200 mls/hr Documented by: Sodium Chloride (Normal Saline) 1,000 mls @ 999 mls/hr IV ONETIME ONE Stop: 07/29/20 01:05 Last Admin: 07/29/20 00:13 Dose: 999 mls/hr Documented by: Sodium Chloride (Normal Saline) 1,000 mls @ 100 mls/hr IV ASDIRECTED [facility] Last Infusion: 07/29/20 04:53 Dose: 150 mls/hr Documented by: Sodium Chloride (Normal Saline) 1,000 mls @ 150 mls/hr IV ASDIRECTED [facility] Last Admin: 07/30/20 02:23 Dose: 150 mls/hr Documented by: Ketorolac Tromethamine (Toradol) 30 mg IVPUSH Q6H PRN PRN Reason: Pain (severe 7-10) Last Admin: 07/28/20 23:56 Dose: 30 mg Documented by: Magnesium Citrate (Citrate Of Magnesia) 296 ml PO ONETIME ONE Stop: 07/29/20 16:06 Last Admin: 07/29/20 16:57 Dose: 296 ml Documented by: Metoprolol Succinate (Toprol Xl) 25 mg PO DAILY [facility] Last Admin: 07/28/20 17:19 Dose: 25 mg Documented by: Midodrine (Midodrine) 5 mg PO ONETIME ONE Stop: 07/29/20 02:01 Last Admin: 07/29/20 02:14 Dose: 5 mg Documented by: Miscellaneous Information (Remove Patch) 1 ea TRDERM Q24H [facility] Last Admin: 07/29/20 18:48 Dose: Not Given Documented by: Cilostazol (Pletal) 100 Mg Tab Own Med 100 mg PO DAILY [facility] Last Admin: 07/29/20 18:29 Dose: Not Given Documented by: Warfarin Sodium (Coumadin) 2.5 mg PO ONETIME ONE Stop: 07/28/20 18:18 Last Admin: 07/28/20 18:49 Dose: 2.5 mg Documented by: - Exam Quality Assessment: No: Supplemental Oxygen General: Alert, Oriented HEENT: Pupils Equal Neck: Supple Lungs: Clear to Auscultation, Normal Respiratory Effort Cardiovascular: Regular Rate, Irregular Rhythm GI/Abdominal Exam: Normal Bowel Sounds, Soft, Non-Tender, No Distention Back Exam: Other. No: CVA Tenderness (L) (no bruising on back) Extremities: Other (L knee in TORRIE wrap, full ROM, minimal pain on ROM) Skin: Warm, Dry, Intact Neurological: No New Focal Deficit Psy/Mental Status: Alert, Normal Affect, Normal Mood - Patient Data Lab Results Last 24 hrs: Laboratory Results - last 24 hr 07/29/20 07/30/20 07/30/20 Range/Units 18:35 05:30 05:30 WBC 6.9 (5.0-10.0) 10^3/uL RBC 2.96 L (4.6-6.2) 10^6/uL Hgb 9.0 L (14.0-18.0) g/dL Hct 27.4 L (40.0-54.0) % MCV 92.6 (80-100) fL MCH 30.4 (27.0-34.0) pg MCHC 32.8 L (33.0-35.0) g/dL Plt Count 205 (150-450) 10^3/uL PT 14.9 H (9.0-12.0) SEC INR 1.6 H (0.9-1.2) Sodium 137 (136-145) mmol/L Potassium 4.5 (3.5-5.1) mmol/L Chloride 103 (98-107) mmol/L Carbon Dioxide 18 L (21-32) mmol/L Anion Gap 20.5 H (7-13) mEq/L BUN 53 H (7-18) mg/dL Creatinine 1.64 H (0.70-1.30) mg/dL Est Cr Clr Drug Dosing 35.86 mL/min Estimated GFR (MDRD) 40 Glucose 113 H (74-99) mg/dL Calcium 8.2 L (8.5-10.1) mg/dL Phosphorus (2.6-4.7) mg/dL Magnesium (1.8-2.4) mg/dL B-Natriuretic Peptide (0-100) pg/ml 07/30/20 Range/Units 05:30 WBC (5.0-10.0) 10^3/uL RBC (4.6-6.2) 10^6/uL Hgb (14.0-18.0) g/dL Hct (40.0-54.0) % MCV (80-100) fL MCH (27.0-34.0) pg MCHC (33.0-35.0) g/dL Plt Count (150-450) 10^3/uL PT (9.0-12.0) SEC INR (0.9-1.2) Sodium 141 (136-145) mmol/L Potassium 4.3 (3.5-5.1) mmol/L Chloride 107 (98-107) mmol/L Carbon Dioxide 19 L (21-32) mmol/L Anion Gap 19.3 H (7-13) mEq/L BUN 44 H (7-18) mg/dL Creatinine 1.42 H (0.70-1.30) mg/dL Est Cr Clr Drug Dosing 41.41 mL/min Estimated GFR (MDRD) 48 Glucose 157 H (74-99) mg/dL Calcium 7.7 L (8.5-10.1) mg/dL Phosphorus 2.7 (2.6-4.7) mg/dL Magnesium 2.2 (1.8-2.4) mg/dL B-Natriuretic Peptide 193 H (0-100) pg/ml Result Diagrams: 07/30/20 05:30 07/30/20 05:30 Db Results Last 24 hrs: Microbiology 07/30/20 09:00 Stool Occult Blood (DB) - Final Stool / Feces NEGATIVE OCCULT BLOOD REFERENCE RANGE: NEGATIVE 07/29/20 02:25 Aerobic Blood Culture - Preliminary Blood - Arm, Left NO GROWTH AFTER 1 DAY Anaerobic Blood Culture - Preliminary NO GROWTH AFTER 1 DAY Sepsis Event Note - Evaluation Sepsis Screening Result: No Definite Risk - Focused Exam Vital Signs: Vital Signs Temp Pulse Resp BP Pulse Ox 07/30/20 04:00 99.2 F 81 18 112/49 L 93 L 07/30/20 00:00 99.5 F 82 18 106/53 L 95 - Problem List Review Problem List Initiated/Reviewed/Updated: No - My Orders Last 24 Hours: My Active Orders 07/29/20 Lunch Regular Diet [DIET] 07/29/20 12:34 Docusate Sodium [Colace] 100 mg PO BID PRN 07/29/20 15:56 EKG 12 Lead [EKG Documentation Completion] [RC] URGENT 07/29/20 21:00 Docusate Sodium/Sennosides [Senna Plus] 2 tab PO BEDTIME cilostazoL [Pletal] 0 mg PO BID 07/30/20 09:35 Abdomen wo Cont [CT] Urgent Lumbar Spine wo Cont [CT] Urgent 07/30/20 10:00 Sodium Chloride 0.9% [Normal Saline] 1,000 ml IV ASDIRECTED 08/01/20 08:00 Echo Comp wo Cont [US] Stat - Plan Plan:: #hypotension - much improved - now w/ normal BPs while all off all home BP meds - await result of send out cortisol level - echo will be done Saturday - taper down IVF rate to 100 - h/h drop noted and urinary retention continues - will have CT today to eval for spinal cord injury during fall or RP bleed due to fall - he now admits 'not drinking enough water' while on two diuretics - most likely etiology is dehydration but will await remaining work up #CITLALI - in setting of above - improved w/ fluid resuscitation - review of [facility] records show worsening BUN/Cr over course of a year 20/0.9 >>> 40/1.5 #anemia - progressively dropping h/h - there has been no external bleeding noted - check guaiac and anemia panel - review of [facility] records shows baseline Hb 12- 13 - since he is on Coumadin and h/h is dropping will eval for RP bleed - may need further GI work up based on results of above - will keep active T/S #possible pneumonia - CXR reviewed / pt has no respirator symptoms - there is no pneumonia #left knee effusion / pain / trauma - improved w/ pain control and TORRIE wrap/ice - seen by PT >>> likely w/ hamstring/quad injury #?afib - hold coumadin - INR 1.8 - hold pending r/o RP bleed #HT - hold BP meds PPX - on coumadin Full code daughter Rosanne updated this morning
[2020-07-30] MEDS ORDERED: Warfarin 2.5 MG Tab PO ONE (18:51)
[2020-07-30] MEDS: Melatonin 3 MG Tab PO PRN (22:49)
[2020-07-31] MEDS ORDERED: Furosemide 40 MG/4 ML VIAL IVPUSH STA (01:26)
[2020-07-31] MEDS ORDERED: Nitroglycerin 0.4 MG Tab.SL ONE (01:29)
[2020-07-31] MEDS ORDERED: Furosemide 40 MG/4 ML VIAL ONE (01:29)
[2020-07-31] MEDS ORDERED: Furosemide 40 MG/4 ML VIAL IVPUSH ONE (01:34)
[2020-07-31] MEDS: Nitroglycerin 0.4 MG Tab.SL SL PRN ×2 (01:35→01:47)
[2020-07-31] MEDS ORDERED: Nitroglycerin/D5W 25 MG/250 ML BOTTLE ONE (01:43)
[2020-07-31] MEDS ORDERED: Nitroglycerin/D5W 25 MG/250 ML BOTTLE IV SCH ×2 (01:47→02:00)
--- NOTE | 2020-07-31 02:27 | CR ---
PROCEDURE INFORMATION: Exam: XR Chest Exam date and time: 07/31/2020 1:43 AM Age: 80 years old Clinical indication: Shortness of breath; Additional info: SOB TECHNIQUE: Imaging protocol: Portable AP view of the chest COMPARISON: Chest x-ray dated 07/28/2020, and upper images from an abdomen CT scan dated 07/30/2020. 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 No other definite cardiopulmonary pathology; no pneumothorax detected. The bony thorax is intact, and superficial soft tissues are unremarkable. 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
--- NOTE | 2020-07-31 02:47 | PCM.SN.2 ---
- Free Text/Narrative Note: Rapid Response Note I was called by RN at 0118 that pt is in respiratory distress, req 4L NC, SBP 180s. I arrived at bedside momentarily. On my arrival pt in severe respiratory distress, diffuse rales, hunched over at side of the bed, sats 86% on 4L NC, SBP 200s. He denied chest pain. States symptoms came on suddenly just moments prior to calling for help. In my assessment the pt was in flash pulmonary edema. Pt was placed on NRB, given lasix 40 IV, SL nitro x2, chaidez was placed. This was not immediately sufficient to relieve his distress. He was started on a nitro gtt @5 and titrated up to 7.5 and placed on BIPAP. He then improved rapidly w/ SBP 130s, sats 100%, comfortable. 12 lead EKG done revealed ST elevation in V1-V2. On my read this is a rate exacerbation of prior tiny ST elevation in old EKG. I faxed and reviewed the EKG and pt presentation w/ Dr Patel from [facility] superintendent construction >>> he agrees that there is no STEMI. On conclusion of [employer] pt is comfortable. Will titrate nitro gtt and BIPAP as needed. d/w RN and RT. dx acute hypoxic respiratory failure 2/2 acute cardiogenic pulmonary edema due to hypertensive emergency CC time 88 min
[2020-07-31] MEDS: Omeprazole 20 MG Cap.CR PO SCH (05:35)
[2020-07-31] MEDS: Metoprolol Succinate 25 MG Tab.ER PO SCH (05:35)
[2020-07-31 06:14] LABS: ANION GAP 17.9 mEq/L (7-13)
[2020-07-31] MEDS: Nicotine 14 MG/24 Hr Patch TRDERM SCH (09:37)
[2020-07-31] MEDS: Aspirin 81 MG Tab.EC PO SCH (09:38)
[2020-07-31] MEDS: Acetaminophen 325 MG Tab PO SCH ×2 (09:39→16:41)
[2020-07-31] MEDS: Ezetimibe 10 MG Tab PO SCH (09:40)
[2020-07-31] MEDS: CILOSTAZOL PO SCH ×2 (10:17→21:11)
--- NOTE | 2020-07-31 10:39 | PCM.PN ---
- General Info Date of Service: 07/31/20 Admission Dx/Problem (Free Text): See [facility] OF [employer] [facility] [employer]PLI[facility] note last night for details. Briefly pt w/ episode of hypertensive emergency leading to flash pulmonary edema. He was in severe respiratory distress. He required 40 IV lasix, nitro gtt, BIPAP. Within 3 hours nitro gtt and BIPAP were titrated off. UOP 2100cc s/p lasix. This am he is back to room air w/ clear lungs, comfortable, normal blood pressures. - Review of Systems Systems Review Comment:: Negative for 14 systems except as specifically noted above - Patient Data Vitals - Most Recent: Last Vital Signs Temp 98.9 F 07/31/20 08:00 Pulse 106 H 07/31/20 08:00 Resp 28 H 07/31/20 08:00 BP 120/58 L 07/31/20 08:00 Pulse Ox 96 07/31/20 08:00 Weight - Most Recent: 177 lb 6.4 oz I&O - Last 24 Hours: Intake & Output 07/30/20 07/31/20 07/31/20 22:59 06:59 14:59 Intake Total 300 Output Total 625 2725 Balance -325 -2725 Lab Results Last 24 Hours: Laboratory Results - last 24 hr 07/31/20 07/31/20 07/31/20 Range/Units 05:25 05:25 05:25 WBC 8.6 (5.0-10.0) 10^3/uL RBC 3.06 L (4.6-6.2) 10^6/uL Hgb 9.3 L (14.0-18.0) g/dL Hct 28.5 L (40.0-54.0) % MCV 93.1 (80-100) fL MCH 30.4 (27.0-34.0) pg MCHC 32.6 L (33.0-35.0) g/dL Plt Count 262 (150-450) 10^3/uL PT 13.0 H (9.0-12.0) SEC INR 1.4 H (0.9-1.2) Sodium 141 (136-145) mmol/L Potassium 4.9 (3.5-5.1) mmol/L Chloride 107 (98-107) mmol/L Carbon Dioxide 21 (21-32) mmol/L Anion Gap 17.9 H (7-13) mEq/L BUN 32 H (7-18) mg/dL Creatinine 1.25 (0.70-1.30) mg/dL Est Cr Clr Drug Dosing 47.04 mL/min Estimated GFR (MDRD) 55 Glucose 115 H (74-99) mg/dL Calcium 8.3 L (8.5-10.1) mg/dL Troponin I 0.048 (0.000-0.056) ng/mL Db Results Last 24 Hours: Microbiology 07/29/20 02:25 Aerobic Blood Culture - Preliminary Blood - Arm, Left NO GROWTH AFTER 2 DAYS Anaerobic Blood Culture - Preliminary NO GROWTH AFTER 2 DAYS 07/28/20 12:32 Urine Culture - Final Urine, Voided NO GROWTH AFTER 2 DAYS 07/30/20 09:00 Stool Occult Blood (DB) - Final Stool / Feces NEGATIVE OCCULT BLOOD REFERENCE RANGE: NEGATIVE Med Orders - Current: Current Medications Acetaminophen (Tylenol) 975 mg PO Q8H [facility] Last Admin: 07/31/20 09:39 Dose: 975 mg Documented by: Aspirin (Halfprin) 81 mg PO DAILY [facility] Last Admin: 07/31/20 09:38 Dose: 81 mg Documented by: Docusate Sodium (Colace) 100 mg PO BID PRN PRN Reason: Constipation Last Admin: 07/29/20 15:17 Dose: 100 mg Documented by: Ezetimibe (Zetia) 10 mg PO DAILY [facility] Last Admin: 07/31/20 09:40 Dose: 10 mg Documented by: Melatonin (Melatonin) 6 mg PO BEDTIME PRN PRN Reason: Insomnia Last Admin: 07/30/20 22:49 Dose: 6 mg Documented by: Metoprolol Succinate (Toprol Xl) 25 mg PO Q24H [facility] Last Admin: 07/31/20 05:35 Dose: 25 mg Documented by: Nicotine (Habitrol) 14 mg TRDERM DAILY [facility] Last Admin: 07/31/20 09:37 Dose: 14 mg Documented by: Nitroglycerin (Nitrostat) 0.4 mg SL Q5M PRN PRN Reason: Chest Pain Last Admin: 07/31/20 01:47 Dose: 0.4 mg Documented by: Non-Formulary Medication (Cilostazol [Pletal]) 0 mg PO BID [facility] Last Admin: 07/31/20 10:17 Dose: 100 mg Documented by: Omeprazole (Omeprazole) 20 mg PO ACBRK [facility] Last Admin: 07/31/20 05:35 Dose: 20 mg Documented by: Senna/Docusate Sodium (Senna Plus) 2 tab PO BEDTIME [facility] Last Admin: 07/30/20 20:13 Dose: 2 tab Documented by: Warfarin Sodium (Coumadin) 5 mg PO ONETIME ONE Stop: 07/31/20 14:01 Discontinued Medications Amlodipine Besylate (Norvasc) 5 mg PO DAILY [facility] Last Admin: 07/28/20 17:16 Dose: Not Given Documented by: Amoxicillin/Clavulanate Potassium (Augmentin 875 Mg/125 Mg) 1 tab PO Q12HR [facility] Benazepril HCl (Lotensin) 20 mg PO DAILY [facility] Last Admin: 07/28/20 17:16 Dose: Not Given Documented by: Bisacodyl (Dulcolax) 10 mg PO ONETIME ONE Stop: 07/29/20 15:01 Last Admin: 07/29/20 15:17 Dose: 10 mg Documented by: Bisacodyl (Dulcolax) 10 mg RECTAL ONETIME ONE Stop: 07/29/20 16:06 Last Admin: 07/29/20 16:33 Dose: 10 mg Documented by: Enoxaparin Sodium (Lovenox) 40 mg SUBCUT DAILY [facility] Furosemide (Lasix) 20 mg PO DAILY [facility] Last Admin: 07/28/20 17:16 Dose: Not Given Documented by: Furosemide (Lasix) 40 mg IVPUSH [facility] Stop: 07/31/20 01:27 Last Admin: 07/31/20 01:25 Dose: 40 mg Documented by: Hydrochlorothiazide (Hydrochlorothiazide) 25 mg PO DAILY [facility] Last Admin: 07/28/20 17:16 Dose: Not Given Documented by: Ampicillin Sodium/Sulbactam (Sodium 1.5 gm/ Sodium Chloride) 100 mls @ 200 mls/hr IV ONETIME ONE Stop: 07/28/20 21:29 Last Admin: 07/28/20 20:41 Dose: 200 mls/hr Documented by: Sodium Chloride (Normal Saline) 1,000 mls @ 999 mls/hr IV ONETIME ONE Stop: 07/29/20 01:05 Last Admin: 07/29/20 00:13 Dose: 999 mls/hr Documented by: Sodium Chloride (Normal Saline) 1,000 mls @ 100 mls/hr IV ASDIRECTED [facility] Last Infusion: 07/29/20 04:53 Dose: 150 mls/hr Documented by: Sodium Chloride (Normal Saline) 1,000 mls @ 150 mls/hr IV ASDIRECTED [facility] Last Infusion: 07/30/20 10:00 Dose: Infused Documented by: Sodium Chloride (Normal Saline) 1,000 mls @ 100 mls/hr IV ASDIRECTED [facility] Last Admin: 07/30/20 22:25 Dose: 100 mls/hr Documented by: Nitroglycerin/Dextrose (Nitroglycerin 25 Mg/D5w 250 Ml) 25 mg in 250 mls @ 6 mls/hr IV ASDIRECTED [facility]; Protocol Nitroglycerin/Dextrose (Nitroglycerin 25 Mg/D5w 250 Ml) 25 mg in 250 mls @ 6 mls/hr IV TITRATE [facility]; Protocol Last Infusion: 07/31/20 03:33 Dose: 0 mcg/min, 0 mls/hr Documented by: Ibuprofen (Motrin) 400 mg PO Q6H PRN PRN Reason: Pain (moderate 4-6) Last Admin: 07/30/20 05:13 Dose: 400 mg Documented by: Ketorolac Tromethamine (Toradol) 30 mg IVPUSH Q6H PRN PRN Reason: Pain (severe 7-10) Last Admin: 07/28/20 23:56 Dose: 30 mg Documented by: Magnesium Citrate (Citrate Of Magnesia) 296 ml PO ONETIME ONE Stop: 07/29/20 16:06 Last Admin: 07/29/20 16:57 Dose: 296 ml Documented by: Metoprolol Succinate (Toprol Xl) 25 mg PO DAILY [facility] Last Admin: 07/28/20 17:19 Dose: 25 mg Documented by: Midodrine (Midodrine) 5 mg PO ONETIME ONE Stop: 07/29/20 02:01 Last Admin: 07/29/20 02:14 Dose: 5 mg Documented by: Miscellaneous Information (Remove Patch) 1 ea TRDERM Q24H [facility] Last Admin: 07/29/20 18:48 Dose: Not Given Documented by: Cilostazol (Pletal) 100 Mg Tab Own Med 100 mg PO DAILY [facility] Last Admin: 07/29/20 18:29 Dose: Not Given Documented by: Warfarin Sodium (Coumadin) 2.5 mg PO ONETIME ONE Stop: 07/28/20 18:18 Last Admin: 07/28/20 18:49 Dose: 2.5 mg Documented by: Warfarin Sodium (Coumadin) 2.5 mg PO ONETIME ONE Stop: 07/30/20 18:52 Last Admin: 07/30/20 20:13 Dose: 2.5 mg Documented by: - Exam Quality Assessment: No: Supplemental Oxygen General: Alert, Oriented, Cooperative HEENT: Pupils Equal Neck: Supple Lungs: Clear to Auscultation, Normal Respiratory Effort Cardiovascular: Irregular Rhythm GI/Abdominal Exam: Normal Bowel Sounds, Soft, Non-Tender, No Distention (Male) Exam: Other (chaidez in place) Back Exam: Normal Inspection Extremities: No Pedal Edema Skin: Warm, Dry, Intact Neurological: No New Focal Deficit Psy/Mental Status: Alert, Normal Affect, Normal Mood - Patient Data Lab Results Last 24 hrs: Laboratory Results - last 24 hr 07/31/20 07/31/20 07/31/20 Range/Units 05:25 05:25 05:25 WBC 8.6 (5.0-10.0) 10^3/uL RBC 3.06 L (4.6-6.2) 10^6/uL Hgb 9.3 L (14.0-18.0) g/dL Hct 28.5 L (40.0-54.0) % MCV 93.1 (80-100) fL MCH 30.4 (27.0-34.0) pg MCHC 32.6 L (33.0-35.0) g/dL Plt Count 262 (150-450) 10^3/uL PT 13.0 H (9.0-12.0) SEC INR 1.4 H (0.9-1.2) Sodium 141 (136-145) mmol/L Potassium 4.9 (3.5-5.1) mmol/L Chloride 107 (98-107) mmol/L Carbon Dioxide 21 (21-32) mmol/L Anion Gap 17.9 H (7-13) mEq/L BUN 32 H (7-18) mg/dL Creatinine 1.25 (0.70-1.30) mg/dL Est Cr Clr Drug Dosing 47.04 mL/min Estimated GFR (MDRD) 55 Glucose 115 H (74-99) mg/dL Calcium 8.3 L (8.5-10.1) mg/dL Troponin I 0.048 (0.000-0.056) ng/mL Result Diagrams: 07/31/20 05:25 07/31/20 05:25 Db Results Last 24 hrs: Microbiology 07/29/20 02:25 Aerobic Blood Culture - Preliminary Blood - Arm, Left NO GROWTH AFTER 2 DAYS Anaerobic Blood Culture - Preliminary NO GROWTH AFTER 2 DAYS 07/28/20 12:32 Urine Culture - Final Urine, Voided NO GROWTH AFTER 2 DAYS 07/30/20 09:00 Stool Occult Blood (DB) - Final Stool / Feces NEGATIVE OCCULT BLOOD REFERENCE RANGE: NEGATIVE Sepsis Event Note - Evaluation Sepsis Screening Result: No Definite Risk - Focused Exam Vital Signs: Vital Signs Temp Pulse Pulse Resp BP BP BP 07/31/20 08:00 98.9 F 106 H 28 H 120/58 L 07/31/20 05:35 88 127/66 07/31/20 04:00 102 H 24 H 113/46 L 07/31/20 02:33 26 H 134/58 L 07/31/20 02:22 28 H 133/62 07/31/20 02:15 30 H 135/64 07/31/20 02:08 32 H 158/71 H 07/31/20 02:02 34 H 170/78 H 07/31/20 01:56 38 H 187/80 H 07/31/20 01:51 36 H 183/99 H 07/31/20 01:47 213/97 H 07/31/20 01:41 46 H 213/97 H 07/31/20 01:35 191/86 H 07/31/20 01:34 46 H 191/86 H 07/31/20 01:17 114 H 38 H 180/85 H 07/30/20 23:53 98.9 F 87 18 118/60 Pulse Ox 07/31/20 08:00 96 07/31/20 05:35 07/31/20 04:00 100 07/31/20 02:33 100 07/31/20 02:22 98 07/31/20 02:15 100 07/31/20 02:08 100 07/31/20 02:02 100 07/31/20 01:56 95 07/31/20 01:51 92 L 07/31/20 01:47 07/31/20 01:41 88 L 07/31/20 01:35 07/31/20 01:34 88 L 07/31/20 01:17 85 L 07/30/20 23:53 95 - Problem List Review Problem List Initiated/Reviewed/Updated: No - My Orders Last 24 Hours: My Active Orders 07/30/20 11:21 Add On Test [COMM] Routine 07/30/20 22:31 Melatonin 6 mg PO BEDTIME PRN 07/31/20 01:30 Insert Chaidze Catheter [Insert Urinary Catheter] [OM.PC] Q24H Nitroglycerin [Nitrostat] 0.4 mg SL Q5M PRN 07/31/20 02:28 Urinary Catheter Assessment [RC] ASDIRECTED 07/31/20 02:36 BIPAP Adult [RT BiPAP/CPAP] [RC] ASDIRECTED 07/31/20 03:16 Communication Order [RC] BID 07/31/20 06:00 Metoprolol Succinate [Toprol XL] 25 mg PO Q24H 07/31/20 Lunch Low Salt [Sodium Restricted Diet] [DIET] 07/31/20 14:00 Warfarin [Coumadin] 5 mg PO ONETIME ONE 08/01/20 05:11 INR,PT,PROTHROMBIN TIME [COAG] AM 08/01/20 08:00 Echo Comp wo Cont [US] Stat - Plan Plan:: #acute hypoxic respiratory failure 2/2 acute cardiogenic pulmonary edema due to hypertensive emergency - was in severe distress requiring nitro gtt and BIPAP - now basically resolved and back to room air - will very cautiously re-start BP meds >>> start toprol 25 #hypotension - pt was profoundly hypotensive the first 24h of his admit - cortisol is normal - no evidence of acute blood loss (guaiac neg, CT neg for RP bleed), no evidence of spinal injury during fall - [facility] records show progressiv e dehydration based on serial BUN/Cr levels much improved - most likely etiology is dehydration while remaining on five BP meds including two diuretics - echo is still pending #CITLALI - in setting of above - review of [facility] records show worsening BUN/Cr over course of a year 20/0.9 >>> 40/1.5 - now improving steadily #anemia - progressively dropping h/h - there has been no external bleeding noted - check guaiac and anemia panel - review of [facility] records shows baseline Hb 12- 13 - since he is on Coumadin and h/h is dropping will eval for RP bleed - may need further GI work up based on results of above - will keep active T/S #possible pneumonia - CXR reviewed / pt has no respirator symptoms - there is no pneumonia #left knee effusion / pain / trauma - improved w/ pain control and TORRIE wrap/ice - seen by PT >>> likely w/ hamstring/quad injury #?afib - dose coumadin 5 today #HT - as above PPX - on coumadin Full code daughter Rosanne updated at bedside, son Miguel updated via conference call
[2020-07-31] MEDS ORDERED: Sodium Chloride 0.9% 10 ML Syringe FLUSH PRN (13:59)
[2020-07-31] MEDS ORDERED: Warfarin 5 MG Tab PO ONE (14:00)
[2020-07-31] MEDS: VIT A C PO SCH (21:09)
[2020-07-31] MEDS: MINERALS PO SCH (21:09)
[2020-07-31] MEDS: LUTEIN PO SCH (21:09)
[2020-07-31] MEDS: [UNRECOGNIZED DRUG - OTHER] PO SCH (21:09)
[2020-07-31] MEDS: Melatonin 3 MG Tab PO PRN (21:10)
[2020-08-01] MEDS: Acetaminophen 325 MG Tab PO SCH ×3 (00:22→16:22)
[2020-08-01] MEDS: Metoprolol Succinate 25 MG Tab.ER PO SCH (06:04)
[2020-08-01] MEDS: Omeprazole 20 MG Cap.CR PO SCH (06:05)
[2020-08-01 06:49] LABS: ANION GAP 17.5 mEq/L (7-13)
[2020-08-01] MEDS ORDERED: Warfarin 5 MG Tab PO ONE (08:12)
[2020-08-01] MEDS: [UNRECOGNIZED DRUG - OTHER] PO SCH (09:13)
[2020-08-01] MEDS: CILOSTAZOL PO SCH (09:13)
[2020-08-01] MEDS: Ezetimibe 10 MG Tab PO SCH (09:13)
[2020-08-01] MEDS: VIT A C PO SCH (09:13)
[2020-08-01] MEDS: LUTEIN PO SCH (09:13)
[2020-08-01] MEDS: Aspirin 81 MG Tab.EC PO SCH (09:13)
[2020-08-01] MEDS: MINERALS PO SCH (09:13)
[2020-08-01] MEDS: Nicotine 14 MG/24 Hr Patch TRDERM SCH (09:13)
[2020-08-01] MEDS ORDERED: Ferrous Sulfate 325 MG Tab PO SCH (18:00)
--- NOTE | 2020-08-01 18:01 | PCM.DCSUM1 ---
Discharge Summary - Hospital Course Free Text/Narrative:: 80M w/ pmh HT, 'arrhythmia', HL p/w weakness and inability to ambulate. Pt had fallen at home 2 days ago. He says left knee just 'gave out' and fell on both knees forward and caught himself w/ both arms out. In the process the left knee bent backwards. He was able to get up w/ lots of pain. Next day he had severe pain w/ weight bearing and visited the ER. Work up was negative for fracture and he was discharged home w/ symptomatic care. He returns today w/ total inability to bear weight on LLE due to knee pain. He also c/o significant pain and weakness in the b/l upper ext and generalized weakness. ER work up again unremarkable for MSK injuries. Pt was profoundly hypotensive the first 24h of his admit - cortisol is normal - no evidence of acute blood loss (guaiac neg, CT neg for RP bleed), no evidence of spinal injury during fall - [facility] records show progressive dehydration based on serial BUN/Cr levels much improved - most likely etiology is dehydration while remaining on five BP meds including two diuretics. This resolved however as pt was prepped for d/c he had an episode of sudden onset acute hypoxic respiratory failure 2/2 acute cardiogenic pulmonary edema due to hypertensive emergency. His SBP was 200s. This was sudden and occurred at 1 am. He was in severe distress and required BIPAP, IV lasix and nitro gtt. He improved rapidly and by am was on room air and in his usual state. Toprol XL 25 was restarted will the remaining BP meds continued to be held. There were no further complications. He suffered mild CITLALI which resolved. He was also noted anemic. There has been no external bleeding noted. Guaiac is negative. CT neg for RP bleed. Review of [facility] records shows baseline Hb 12-13. Since he is on Coumadin he will need further GI work up w/ upper and lower endoscopy. This can be deferred to the outpatient setting given recent acute issues w/ hypo and hypertension. 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 This too should be followed up as outpatient. Regarding his left knee trauma - his effusions and pain improved quickly. Seen by PT and likely hamstring/quad injury. Pt also had problems w/ urinary retention. This did no resolve w/ resolutions of constipation. He frequently required straight cath. He also briefly had a chaidez cath during his respiratory crisis. He passed a trial of void prior to d/c Family was updated re all of the above. dx: #acute hypoxic respiratory failure 2/2 acute cardiogenic pulmonary edema due to hypertensive emergency #hypotension #CITLALI #anemia #left knee effusion / pain / trauma 2/2 hamstring/quad injury #afib #HT Diagnosis: Stroke: No - Discharge Data Discharge Date: 08/01/20 Discharge Disposition: DC/Tfer W/I Hosp To Swing 61 Condition: Good - Referral to Home Health Primary Care Physician: PCP None - Patient Summary/Data Consults: Consultations 07/28/20 15:55 PT Evaluation and Treatment [CONS] Routine - Patient Instructions Diet: Low Sodium - Discharge Plan *PRESCRIPTION DRUG MONITORING PROGRAM REVIEWED*: Not Applicable *COPY OF PRESCRIPTION DRUG MONITORING REPORT IN PATIENT MIGUEL: Not Applicable Home Medications: Home Meds Aspirin [Halfprin] 81 mg PO DAILY 06/16/13 [History] Omeprazole 20 mg PO DAILY 06/16/13 [History] Ezetimibe [Zetia] 10 mg PO DAILY 07/27/20 [History] Metoprolol Succinate 25 mg PO DAILY 07/27/20 [History] cilostazoL [Pletal] 100 mg PO BID 07/27/20 [History] Warfarin [Coumadin] 2.5 mg PO ASDIRECTED 07/28/20 [History] Warfarin [Coumadin] 5 mg PO ASDIRECTED 07/28/20 [History] Docusate Sodium/Sennosides [Senna Plus] 2 tab PO BEDTIME tablet 08/01/20 [Rx] Ferrous Sulfate 325 mg PO BIDMEALS tablet 08/01/20 [Rx] Lutein/Minerals/Vit A,C & E [I-Adair] 1 each PO BID tablet 08/01/20 [Rx] Melatonin 6 mg PO BEDTIME PRN tablet 08/01/20 [Rx] Metoprolol Succinate [Toprol XL] 25 mg PO Q24H tab.er 08/01/20 [Rx] Nicotine [Habitrol] 14 mg TRDERM DAILY patch 08/01/20 [Rx] Nitroglycerin [Nitrostat] 0.4 mg SL Q5M PRN tab.sl 08/01/20 [Rx] Forms: ED Department Discharge Referrals: PCP,None [Primary Care Provider] - - Discharge Summary/Plan Comment DC Time >30 min.: No - General Info Date of Service: 08/01/20 - Patient Data Vitals - Most Recent: Last Vital Signs Temp 98.0 F 08/01/20 12:00 Pulse 106 H 08/01/20 12:00 Resp 20 08/01/20 12:00 BP 127/56 L 08/01/20 12:00 Pulse Ox 98 08/01/20 12:00 Weight - Most Recent: 177 lb 6.4 oz I&O - Last 24 hours: Intake & Output 08/01/20 08/01/20 08/01/20 06:59 14:59 22:59 Intake Total 550 1020 Output Total 1000 550 Balance -450 470 Lab Results - Last 24 hrs: Laboratory Results - last 24 hr 08/01/20 08/01/20 Range/Units 05:40 05:40 PT 14.2 H (9.0-12.0) SEC INR 1.5 H (0.9-1.2) Sodium 142 (136-145) mmol/L Potassium 4.5 (3.5-5.1) mmol/L Chloride 105 (98-107) mmol/L Carbon Dioxide 24 (21-32) mmol/L Anion Gap 17.5 H (7-13) mEq/L BUN 22 H (7-18) mg/dL Creatinine 1.18 (0.70-1.30) mg/dL Est Cr Clr Drug Dosing 49.84 mL/min Estimated GFR (MDRD) 59 Glucose 93 (74-99) mg/dL Calcium 8.5 (8.5-10.1) mg/dL SONAM Results - Last 24 hrs: Microbiology 07/29/20 02:25 Aerobic Blood Culture - Preliminary Blood - Arm, Left NO GROWTH AFTER 3 DAYS Anaerobic Blood Culture - Preliminary NO GROWTH AFTER 3 DAYS Med Orders - Current: Current Medications Discontinued Medications Acetaminophen (Tylenol) 975 mg PO Q8H [facility] Last Admin: 08/01/20 16:22 Dose: 975 mg Documented by: Amlodipine Besylate (Norvasc) 5 mg PO DAILY [facility] Last Admin: 07/28/20 17:16 Dose: Not Given Documented by: Amoxicillin/Clavulanate Potassium (Augmentin 875 Mg/125 Mg) 1 tab PO Q12HR [facility] Aspirin (Halfprin) 81 mg PO DAILY [facility] Last Admin: 08/01/20 09:13 Dose: 81 mg Documented by: Benazepril HCl (Lotensin) 20 mg PO DAILY [facility] Last Admin: 07/28/20 17:16 Dose: Not Given Documented by: Bisacodyl (Dulcolax) 10 mg PO ONETIME ONE Stop: 07/29/20 15:01 Last Admin: 07/29/20 15:17 Dose: 10 mg Documented by: Bisacodyl (Dulcolax) 10 mg RECTAL ONETIME ONE Stop: 07/29/20 16:06 Last Admin: 07/29/20 16:33 Dose: 10 mg Documented by: Docusate Sodium (Colace) 100 mg PO BID PRN PRN Reason: Constipation Last Admin: 07/29/20 15:17 Dose: 100 mg Documented by: Ezetimibe (Zetia) 10 mg PO DAILY [facility] Last Admin: 08/01/20 09:13 Dose: 10 mg Documented by: Enoxaparin Sodium (Lovenox) 40 mg SUBCUT DAILY [facility] Ferrous Sulfate (Ferrous Sulfate) 325 mg PO BIDMEALS [facility] Furosemide (Lasix) 20 mg PO DAILY [facility] Last Admin: 07/28/20 17:16 Dose: Not Given Documented by: Furosemide (Lasix) 40 mg IVPUSH NOW [facility] Stop: 07/31/20 01:27 Last Admin: 07/31/20 01:25 Dose: 40 mg Documented by: Hydrochlorothiazide (Hydrochlorothiazide) 25 mg PO DAILY [facility] Last Admin: 07/28/20 17:16 Dose: Not Given Documented by: Ampicillin Sodium/Sulbactam (Sodium 1.5 gm/ Sodium Chloride) 100 mls @ 200 mls/hr IV ONETIME ONE Stop: 07/28/20 21:29 Last Admin: 07/28/20 20:41 Dose: 200 mls/hr Documented by: Sodium Chloride (Normal Saline) 1,000 mls @ 999 mls/hr IV ONETIME ONE Stop: 07/29/20 01:05 Last Admin: 07/29/20 00:13 Dose: 999 mls/hr Documented by: Sodium Chloride (Normal Saline) 1,000 mls @ 100 mls/hr IV ASDIRECTED [facility] Last Infusion: 07/29/20 04:53 Dose: 150 mls/hr Documented by: Sodium Chloride (Normal Saline) 1,000 mls @ 150 mls/hr IV ASDIRECTED [facility] Last Infusion: 07/30/20 10:00 Dose: Infused Documented by: Sodium Chloride (Normal Saline) 1,000 mls @ 100 mls/hr IV ASDIRECTED [facility] Last Admin: 07/30/20 22:25 Dose: 100 mls/hr Documented by: Nitroglycerin/Dextrose (Nitroglycerin 25 Mg/D5w 250 Ml) 25 mg in 250 mls @ 6 mls/hr IV ASDIRECTED [facility]; Protocol Nitroglycerin/Dextrose (Nitroglycerin 25 Mg/D5w 250 Ml) 25 mg in 250 mls @ 6 mls/hr IV TITRATE [facility]; Protocol Last Infusion: 07/31/20 03:33 Dose: 0 mcg/min, 0 mls/hr Documented by: Ibuprofen (Motrin) 400 mg PO Q6H PRN PRN Reason: Pain (moderate 4-6) Last Admin: 07/30/20 05:13 Dose: 400 mg Documented by: Ketorolac Tromethamine (Toradol) 30 mg IVPUSH Q6H PRN PRN Reason: Pain (severe 7-10) Last Admin: 07/28/20 23:56 Dose: 30 mg Documented by: Magnesium Citrate (Citrate Of Magnesia) 296 ml PO ONETIME ONE Stop: 07/29/20 16:06 Last Admin: 07/29/20 16:57 Dose: 296 ml Documented by: Melatonin (Melatonin) 6 mg PO BEDTIME PRN PRN Reason: Insomnia Last Admin: 07/31/20 21:10 Dose: 6 mg Documented by: Metoprolol Succinate (Toprol Xl) 25 mg PO DAILY [facility] Last Admin: 07/28/20 17:19 Dose: 25 mg Documented by: Metoprolol Succinate (Toprol Xl) 25 mg PO Q24H [facility] Last Admin: 08/01/20 06:04 Dose: 25 mg Documented by: Midodrine (Midodrine) 5 mg PO ONETIME ONE Stop: 07/29/20 02:01 Last Admin: 07/29/20 02:14 Dose: 5 mg Documented by: Miscellaneous Information (Remove Patch) 1 ea TRDERM Q24H [facility] Last Admin: 07/29/20 18:48 Dose: Not Given Documented by: Multivitamins/Minerals (I-Adair) 1 each PO BID [facility] Last Admin: 08/01/20 09:13 Dose: 1 each Documented by: Nicotine (Habitrol) 14 mg TRDERM DAILY [facility] Last Admin: 08/01/20 09:13 Dose: 14 mg Documented by: Nitroglycerin (Nitrostat) 0.4 mg SL Q5M PRN PRN Reason: Chest Pain Last Admin: 07/31/20 01:47 Dose: 0.4 mg Documented by: Cilostazol (Pletal) 100 Mg Tab Own Med 100 mg PO DAILY [facility] Last Admin: 07/29/20 18:29 Dose: Not Given Documented by: Non-Formulary Medication (Cilostazol [Pletal]) 0 mg PO BID [facility] Last Admin: 08/01/20 09:13 Dose: 100 mg Documented by: Omeprazole (Omeprazole) 20 mg PO ACBRK [facility] Last Admin: 08/01/20 06:05 Dose: 20 mg Documented by: Senna/Docusate Sodium (Senna Plus) 2 tab PO BEDTIME [facility] Last Admin: 07/31/20 21:10 Dose: 2 tab Documented by: Sodium Chloride (Saline Flush) 10 ml FLUSH ASDIRECTED PRN PRN Reason: Keep Vein Open Warfarin Sodium (Coumadin) 2.5 mg PO ONETIME ONE Stop: 07/28/20 18:18 Last Admin: 07/28/20 18:49 Dose: 2.5 mg Documented by: Warfarin Sodium (Coumadin) 2.5 mg PO ONETIME ONE Stop: 07/30/20 18:52 Last Admin: 07/30/20 20:13 Dose: 2.5 mg Documented by: Warfarin Sodium (Coumadin) 5 mg PO ONETIME ONE Stop: 07/31/20 14:01 Last Admin: 07/31/20 14:37 Dose: 5 mg Documented by: Warfarin Sodium (Coumadin) 5 mg PO ONETIME ONE Stop: 08/01/20 08:13 Last Admin: 08/01/20 09:12 Dose: 5 mg Documented by: - Exam Quality Assessment: Denies: Supplemental Oxygen General: Reports: Alert, Oriented, Cooperative Neck: Reports: Supple Lungs: Reports: Clear to Auscultation, Normal Respiratory Effort Cardiovascular: Reports: No Murmurs, Irregular Rhythm GI/Abdominal Exam: Normal Bowel Sounds, Soft, Non-Tender, No Distention Back Exam: Reports: Normal Inspection, Full Range of Motion Extremities: Normal Inspection, No Pedal Edema Skin: Reports: Warm, Intact Neurological: Reports: No New Focal Deficit Psy/Mental Status: Reports: Alert, Normal Affect, Normal Mood
== END 2020-08-01 16:22 | disposition swing bed (61) | DRG 564 ==
LOC: DL.ED 10:34 → DL.MS 14:47
PROVIDERS: ADMIT Internal Medicine; ATTEND Internal Medicine
DX: J18.9 Pneumonia, unspecified organism (principal); R53.1 Weakness; W19.XXXD Unspecified fall, subsequent encounter; M25.561 Pain in right knee; M25.562 Pain in left knee; M25.462 Effusion, left knee; J96.01 Acute respiratory failure with hypoxia; J81.0 Acute pulmonary edema; Z86.718 Personal history of other venous thrombosis and embolism; N17.9 Acute kidney failure, unspecified; I16.1 Hypertensive emergency; I95.9 Hypotension, unspecified; D64.9 Anemia, unspecified; I48.91 Unspecified atrial fibrillation; Z20.822 Contact with and (suspected) exposure to COVID-19; H54.7 Unspecified visual loss; I25.10 Atherosclerotic heart disease of native coronary artery without angina pectoris; E78.00 Pure hypercholesterolemia, unspecified; I10 Essential (primary) hypertension; F17.200 Nicotine dependence, unspecified, uncomplicated; R33.9 Retention of urine, unspecified; D35.02 Benign neoplasm of left adrenal gland; Z79.82 Long term (current) use of aspirin; Z79.01 Long term (current) use of anticoagulants; Z79.899 Other long term (current) drug therapy; Z98.49 Cataract extraction status, unspecified eye; Z90.49 Acquired absence of other specified parts of digestive tract; Z28.82 Immunization not carried out because of caregiver refusal
CPT/HCPCS: 36415; 51701; 51702; 51798; 71045; 71046; 72125; 72131; 74150; 76705; 80048; 80053; 81001; 82272; 82533; 82607; 82728; 82746; 83540; 83550; 83605; 83735; 83880; 84100; 84484; 85025; 85027; 85610; 86850; 86900; 86901; 87040; 87086; 93005; 93306; 94660; 97162-GP; 99222; 99232; 99238; 99284; 99285-25; 99291; 99292; A9270-GY; J0295; J1885; J1940; J3490; J7030; U0002

== ENCOUNTER 2020-08-01 13:42 | Inpatient (IN) | payer MEDICARE, BC ==
[2020-08-01] MEDS ORDERED: Nitroglycerin 0.4 MG Tab.SL SL PRN (14:26)
[2020-08-01] MEDS: Ferrous Sulfate 325 MG Tab PO SCH (17:33)
--- NOTE | 2020-08-01 18:13 | PCM.HP ---
H&P History of Present Illness - General Date of Service: 08/01/20 Admit Problem/Dx: Admission Diagnosis/Problem Admission Diagnosis/Problem Hypotension due to drugs - History of Present Illness Initial Comments - Free Text/Narative: 80M w/ pmh HT, 'arrhythmia', HL p/w weakness and inability to ambulate. Pt had fallen at home 2 days ago. He says left knee just 'gave out' and fell on both knees forward and caught himself w/ both arms out. In the process the left knee bent backwards. He was able to get up w/ lots of pain. Next day he had severe pain w/ weight bearing and visited the ER. Work up was negative for fracture and he was discharged home w/ symptomatic care. He returns today w/ total inability to bear weight on LLE due to knee pain. He also c/o significant pain and weakness in the b/l upper ext and generalized weakness. ER work up again unremarkable for MSK injuries. Pt was profoundly hypotensive the first 24h of his admit - cortisol is normal - no evidence of acute blood loss (guaiac neg, CT neg for RP bleed), no evidence of spinal injury during fall - [facility] records show progressive dehydration based on serial BUN/Cr levels much improved - most likely etiology is dehydration wh ile remaining on five BP meds including two diuretics. This resolved however as pt was prepped for d/c he had an episode of sudden onset acute hypoxic respiratory failure 2/2 acute cardiogenic pulmonary edema due to hypertensive emergency. His SBP was 200s. This was sudden and occurred at 1 am. He was in severe distress and required BIPAP, IV lasix and nitro gtt. He improved rapidly and by am was on room air and in his usual state. Toprol XL 25 was restarted will the remaining BP meds continued to be held. There were no further complications. He suffered mild CITLALI which resolved. He was also noted anemic. There has been no external bleeding noted. Guaiac is negative. CT neg for RP bleed. Review of [facility] records shows baseline Hb 12-13. Since he is on Coumadin he will need further GI work up w/ upper and lower endoscopy. This can be deferred to the outpatient setting given recent acute issues w/ hypo and hypertension. 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 This too should be followed up as outpatient. Regarding his left knee trauma - his effusions and pain improved quickly. Seen by PT and likely hamstring/quad injury. Pt also had problems w/ urinary retention. This did no resolve w/ resolutions of constipation. He frequently required straight cath. He also briefly had a chaidez cath during his respiratory crisis. He passed a trial of void prior to d/c Pt was transferred to a Swing Bed for continued PT/OT due to debility following the hospitalization. - Related Data Allergies/Adverse Reactions: Allergies Allergy/AdvReac Type Severity Reaction Status Date / Time No Known Allergies Allergy Verified 08/01/20 14:09 Home Medications: Home Meds Aspirin [Halfprin] 81 mg PO DAILY 06/16/13 [History] Omeprazole 20 mg PO DAILY 06/16/13 [History] Ezetimibe [Zetia] 10 mg PO DAILY 07/27/20 [History] Metoprolol Succinate 25 mg PO DAILY 07/27/20 [History] cilostazoL [Pletal] 100 mg PO BID 07/27/20 [History] Warfarin [Coumadin] 2.5 mg PO ASDIRECTED 07/28/20 [History] Warfarin [Coumadin] 5 mg PO ASDIRECTED 07/28/20 [History] Docusate Sodium/Sennosides [Senna Plus] 2 tab PO BEDTIME tablet 08/01/20 [Rx] Ferrous Sulfate 325 mg PO BIDMEALS tablet 08/01/20 [Rx] Lutein/Minerals/Vit A,C & E [I-Adair] 1 each PO BID tablet 08/01/20 [Rx] Melatonin 6 mg PO BEDTIME PRN tablet 08/01/20 [Rx] Metoprolol Succinate [Toprol XL] 25 mg PO Q24H tab.er 08/01/20 [Rx] Nicotine [Habitrol] 14 mg TRDERM DAILY patch 08/01/20 [Rx] Nitroglycerin [Nitrostat] 0.4 mg SL Q5M PRN tab.sl 08/01/20 [Rx] Past Medical History HEENT History: Reports: Impaired Vision Cardiovascular History: Reports: Arrhythmia, Blood Clots/VTE/DVT, CAD, High Cholesterol, Hypertension Respiratory History: Reports: None Gastrointestinal History: Reports: None Genitourinary History: Reports: None Musculoskeletal History: Reports: Other (See Below) Other Musculoskeletal History: left knee sprain Neurological History: Reports: None Psychiatric History: Reports: None Endocrine/Metabolic History: Reports: None Hematologic History: Reports: None Immunologic History: Reports: None Oncologic (Cancer) History: Reports: None Dermatologic History: Reports: None - Infectious Disease History Infectious Disease History: Reports: None - Past Surgical History HEENT Surgical History: Reports: Cataract Surgery Cardiovascular Surgical History: Reports: Carotid Endarterectomy Respiratory Surgical History: Reports: None GI Surgical History: Reports: Appendectomy Male Surgical History: Reports: None Neurological Surgical History: Reports: None Musculoskeletal Surgical History: Reports: None Social & Family History - Family History Family Medical History: No Pertinent Family History - Tobacco Use Tobacco Use Status *Q: Current Every Day Tobacco User Years of Tobacco use: 50 Packs/Tins Daily: 1 - Caffeine Use Caffeine Use: Reports: Coffee - Recreational Drug Use Recreational Drug Use: No H&P Review of Systems - Review of Systems: Review Of Systems: See Below General: Denies: Fever HEENT: Denies: Sore Throat Pulmonary: Denies: Shortness of Breath Cardiovascular: Denies: Chest Pain Gastrointestinal: Denies: Abdominal Pain Genitourinary: Reports: Retention Skin: Denies: Diaphoresis Psychiatric: Denies: Confusion Neurological: Denies: Dizziness Hematologic/Lymphatic: Reports: Easy Bleeding Exam - Exam Exam: See Below - Exam Quality Assessment: No: Supplemental Oxygen General: Alert, Oriented, Cooperative HEENT: Conjunctiva Clear Neck: Supple Lungs: Clear to Auscultation, Normal Respiratory Effort Cardiovascular: Regular Rate, Irregular Rhythm GI/Abdominal Exam: Normal Bowel Sounds, Soft, Non-Tender, No Distention Back Exam: Normal Inspection, Full Range of Motion Extremities: No Pedal Edema Neurological: Cranial Nerves Intact Neuro Extensive - Mental Status: Alert, Oriented x3, Normal Mood/Affect Neuro Extensive - Motor, Sensory, Reflexes: Normal Gait (with walker) Psychiatric: Alert, Normal Affect, Normal Mood Problem List Initiated/Reviewed/Updated: No Orders Last 24hrs: Active Orders 24 hr Category Date Time Status Patient Status [ADT] Routine ADT 08/01/20 14:23 Active Oxygen Therapy [RC] .PRN Care 08/01/20 14:23 Active Up With Assistance [RC] ASDIRECTED Care 08/01/20 14:23 Active VTE/DVT Education [RC] , Care 08/01/20 14:23 Active Vital Signs [RC] QSHIFT Care 08/01/20 14:23 Active OT Evaluation and Treatment [CONS] Routine Cons 08/01/20 14:41 Active PT Evaluation and Treatment [CONS] Routine Cons 08/01/20 14:23 Active 2 Gram Sodium Diet [DIET] Diet 08/01/20 Dinner Active Acetaminophen [TylenoL] Med 08/01/20 14:23 Active 650 mg PO Q4H PRN Aspirin [Halfprin] Med 08/02/20 09:00 Active 81 mg PO DAILY Check Patch Med 08/01/20 21:00 Active 1 ea TRDERM BEDTIME Docusate Sodium/Sennosides [Senna Plus] Med 08/01/20 21:00 Active 2 tab PO BEDTIME Ezetimibe [Zetia] Med 08/02/20 09:00 Active 10 mg PO DAILY Ferrous Sulfate Med 08/01/20 18:00 Active 325 mg PO BIDMEALS Melatonin Med 08/01/20 14:26 Active 6 mg PO BEDTIME PRN Metoprolol Succinate [Toprol XL] Med 08/02/20 09:00 Active 25 mg PO DAILY Nicotine [Habitrol] Med 08/02/20 09:00 Active 14 mg TRDERM DAILY Nitroglycerin [Nitrostat] Med 08/01/20 14:26 Active 0.4 mg SL Q5M PRN Omeprazole Med 08/02/20 06:00 Active 20 mg PO ACBRK Patient's Own Medication [Ptom] Med 08/01/20 21:00 Active 1 each PO BID cilostazoL [Pletal] Med 08/01/20 21:00 Active 0 mg PO BID Resuscitation Status Routine Resus Stat 08/01/20 14:23 Ordered Medication Orders Acetaminophen (Tylenol) 650 mg PO Q4H PRN PRN Reason: Pain (Mild 1-3)/fever Aspirin (Halfprin) 81 mg PO DAILY [facility] Ezetimibe (Zetia) 10 mg PO DAILY [facility] Ferrous Sulfate (Ferrous Sulfate) 325 mg PO BIDMEALS [facility] Last Admin: 08/01/20 17:33 Dose: 325 mg Documented by: ARON Melatonin (Melatonin) 6 mg PO BEDTIME PRN PRN Reason: Insomnia Metoprolol Succinate (Toprol Xl) 25 mg PO DAILY [facility] Miscellaneous Information (Check Patch) 1 ea TRDERM BEDTIME [facility] Nicotine (Habitrol) 14 mg TRDERM DAILY [facility] Nitroglycerin (Nitrostat) 0.4 mg SL Q5M PRN PRN Reason: Chest Pain Cilostazol (Pletal) 100 Mg Tab Own Med 0 mg PO BID [facility] Omeprazole (Omeprazole) 20 mg PO ACBRK [facility] Preservision Areds 2 (Own Med) 1 each PO BID [facility] Senna/Docusate Sodium (Senna Plus) 2 tab PO BEDTIME [facility] Assessment/Plan Comment:: #acute hypoxic respiratory failure 2/2 acute cardiogenic pulmonary edema due to hypertensive emergency - was in severe distress requiring nitro gtt and BIPAP - now basically resolved and back to room air - will very cautiously re-start BP meds >>> started toprol 25 #hypotension - pt was profoundly hypotensive the first 24h of his admit - cortisol is normal - no evidence of acute blood loss (guaiac neg, CT neg for RP bleed), no evidence of spinal injury during fall - [facility] records show progressive dehydration based on serial BUN/Cr levels much improved - most likely etiology is dehydration while remaining on five BP meds including two diuretics - echo done and read pending #CITLALI - in setting of above - review of [facility] records show worsening BUN/Cr over course of a year 20/0.9 >>> 40/1.5 - now improving steadily #anemia - progressively dropping h/h - there has been no external bleeding noted - guaiac neg - CT neg for RP bleed - review of [facility] records shows baseline Hb 12-13 - since he is on Coumadin and h/h is dropping will eval for RP bleed - will need further GI work up based on results of above #urinary retention - passed TOV today #left knee effusion / pain / trauma - improved w/ pain control and TORRIE wrap/ice - seen by PT >>> likely w/ hamstring/quad injury #afib - dose coumadin 5 today #left adrenal adenoma - outpatient follow up #HT - as above PPX - on coumadin
[2020-08-01] MEDS: CILOSTAZOL 100 MG PO SCH (20:39)
[2020-08-01] MEDS ORDERED: Lutein/Minerals/Vit A,C & E Tab PO SCH (21:00)
[2020-08-02] MEDS: Melatonin 3 MG Tab PO PRN ×2 (02:28→21:19)
[2020-08-02] MEDS: Omeprazole 20 MG Cap.CR PO SCH (07:42)
[2020-08-02] MEDS: Ferrous Sulfate 325 MG Tab PO SCH ×2 (09:11→17:46)
[2020-08-02] MEDS: Ezetimibe 10 MG Tab PO SCH (09:11)
[2020-08-02] MEDS: Metoprolol Succinate 25 MG Tab.ER PO SCH (09:11)
[2020-08-02] MEDS: Aspirin 81 MG Tab.EC PO SCH (09:11)
[2020-08-02] MEDS: Nicotine 14 MG/24 Hr Patch TRDERM SCH (09:12)
[2020-08-02] MEDS: CILOSTAZOL 100 MG PO SCH ×2 (09:13→21:18)
--- NOTE | 2020-08-02 09:34 | CR ---
PROCEDURE INFORMATION: Exam: XR Chest Exam date and time: 08/02/2020 9:02 AM Age: 80 years old Clinical indication: Dyspnea TECHNIQUE: Imaging protocol: XR of the chest Views: 2 views. COMPARISON: CR Chest 1V Frontal 07/31/2020 1:42 AM FINDINGS: Lungs: The lungs are again hyperinflated. There are decreased interstitial and airspace opacities bilaterally, now mild. Pleural spaces: Small bilateral pleural effusions are again present. There are also again calcified pleural plaques bilaterally. No pneumothorax is identified. Heart/Mediastinum: The cardiomediastinal silhouette is stable in appearance allowing for differences in positioning. Bones/joints: Unremarkable. IMPRESSION: Decreased bilateral interstitial and airspace opacities as compared with 07/31/20, now mild, again with small bilateral pleural effusions.
[2020-08-02] MEDS ORDERED: Furosemide 20 MG/2 ML VIAL IVPUSH ONE (10:05)
[2020-08-02] MEDS ORDERED: Warfarin 5 MG Tab PO ONE (14:00)
[2020-08-03] MEDS: Omeprazole 20 MG Cap.CR PO SCH (05:41)
[2020-08-03] MEDS: Ferrous Sulfate 325 MG Tab PO SCH ×2 (08:05→17:21)
[2020-08-03] MEDS: Aspirin 81 MG Tab.EC PO SCH (08:05)
[2020-08-03] MEDS: Metoprolol Succinate 25 MG Tab.ER PO SCH (08:05)
[2020-08-03] MEDS: Ezetimibe 10 MG Tab PO SCH (08:06)
[2020-08-03] MEDS: Nicotine 14 MG/24 Hr Patch TRDERM SCH (08:07)
[2020-08-03] MEDS: CILOSTAZOL 100 MG PO SCH ×2 (08:32→22:22)
[2020-08-03] MEDS ORDERED: Warfarin 5 MG Tab PO ONE (14:00)
[2020-08-03] MEDS: Acetaminophen 325 MG Tab PO PRN ×2 (16:44→22:24)
[2020-08-03] MEDS: Melatonin 3 MG Tab PO PRN (22:19)
[2020-08-04] MEDS: Omeprazole 20 MG Cap.CR PO SCH (05:15)
[2020-08-04] MEDS: Aspirin 81 MG Tab.EC PO SCH (08:36)
[2020-08-04] MEDS: Ferrous Sulfate 325 MG Tab PO SCH ×2 (08:36→17:52)
[2020-08-04] MEDS: Metoprolol Succinate 25 MG Tab.ER PO SCH (08:36)
[2020-08-04] MEDS: Ezetimibe 10 MG Tab PO SCH (08:36)
[2020-08-04] MEDS: Nicotine 14 MG/24 Hr Patch TRDERM SCH (08:37)
[2020-08-04] MEDS: CILOSTAZOL 100 MG PO SCH ×2 (08:40→20:36)
[2020-08-04] MEDS ORDERED: Warfarin 5 MG Tab PO ONE (18:48)
[2020-08-04] MEDS: Melatonin 3 MG Tab PO PRN (21:21)
[2020-08-05] MEDS: Omeprazole 20 MG Cap.CR PO SCH (05:26)
[2020-08-05] MEDS: Acetaminophen 325 MG Tab PO PRN (08:52)
[2020-08-05] MEDS: Ezetimibe 10 MG Tab PO SCH (08:53)
[2020-08-05] MEDS: Aspirin 81 MG Tab.EC PO SCH (08:53)
[2020-08-05] MEDS: Ferrous Sulfate 325 MG Tab PO SCH ×2 (08:53→17:17)
[2020-08-05] MEDS: Nicotine 21 MG/24 Hr Patch TRDERM SCH (08:53)
[2020-08-05] MEDS: CILOSTAZOL 100 MG PO SCH ×2 (08:55→21:03)
[2020-08-05] MEDS: Metoprolol Succinate 25 MG Tab.ER PO SCH ×2 (08:56→09:52)
[2020-08-05] MEDS ORDERED: Warfarin 2.5 MG Tab PO ONE (14:26)
[2020-08-05] MEDS: Melatonin 3 MG Tab PO PRN (22:09)
[2020-08-06] MEDS: Omeprazole 20 MG Cap.CR PO SCH (06:47)
[2020-08-06] MEDS: Ezetimibe 10 MG Tab PO SCH (09:06)
[2020-08-06] MEDS: Aspirin 81 MG Tab.EC PO SCH (09:06)
[2020-08-06] MEDS: Ferrous Sulfate 325 MG Tab PO SCH ×2 (09:07→20:19)
[2020-08-06] MEDS: Metoprolol Succinate 25 MG Tab.ER PO SCH (09:07)
[2020-08-06] MEDS: Nicotine 21 MG/24 Hr Patch TRDERM SCH (09:08)
[2020-08-06] MEDS: CILOSTAZOL 100 MG PO SCH ×2 (09:10→21:13)
[2020-08-06] MEDS ORDERED: Warfarin 5 MG Tab PO ONE (14:00)
[2020-08-07] MEDS: Melatonin 3 MG Tab PO PRN ×2 (03:13→22:18)
[2020-08-07] MEDS: Omeprazole 20 MG Cap.CR PO SCH (06:08)
[2020-08-07] MEDS: Ferrous Sulfate 325 MG Tab PO SCH ×2 (08:33→17:51)
[2020-08-07] MEDS: Metoprolol Succinate 25 MG Tab.ER PO SCH (08:33)
[2020-08-07] MEDS: Ezetimibe 10 MG Tab PO SCH (08:33)
[2020-08-07] MEDS: Aspirin 81 MG Tab.EC PO SCH (08:34)
[2020-08-07] MEDS: CILOSTAZOL 100 MG PO SCH ×2 (08:36→21:21)
[2020-08-07] MEDS: Nicotine 21 MG/24 Hr Patch TRDERM SCH (08:37)
[2020-08-07] MEDS ORDERED: Warfarin 2.5 MG Tab PO ONE (14:00)
[2020-08-07] MEDS: Acetaminophen 325 MG Tab PO PRN (22:18)
[2020-08-08] MEDS: Omeprazole 20 MG Cap.CR PO SCH (06:03)
[2020-08-08] MEDS: Ezetimibe 10 MG Tab PO SCH (08:41)
[2020-08-08] MEDS: Ferrous Sulfate 325 MG Tab PO SCH (08:41)
[2020-08-08] MEDS: Nicotine 21 MG/24 Hr Patch TRDERM SCH (08:41)
[2020-08-08] MEDS: Aspirin 81 MG Tab.EC PO SCH (08:42)
[2020-08-08] MEDS: Metoprolol Succinate 25 MG Tab.ER PO SCH (08:42)
[2020-08-08] MEDS: CILOSTAZOL 100 MG PO SCH (09:00)
--- NOTE | 2020-08-08 14:41 | PCM.DCSUM1 ---
Discharge Summary - Hospital Course Free Text/Narrative:: 80M w/ pmh HT, 'arrhythmia', HL p/w weakness and inability to ambulate. Pt had fallen at home 2 days ago. He says left knee just 'gave out' and fell on both knees forward and caught himself w/ both arms out. In the process the left knee bent backwards. He was able to get up w/ lots of pain. Next day he had severe pain w/ weight bearing and visited the ER. Work up was negative for fracture and he was discharged home w/ symptomatic care. He returns today w/ total inability to bear weight on LLE due to knee pain. He also c/o significant pain and weakness in the b/l upper ext and generalized weakness. ER work up again unremarkable for MSK injuries. Pt was profoundly hypotensive the first 24h of his admit - cortisol is normal - no evidence of acute blood loss (guaiac neg, CT neg for RP bleed), no evidence of spinal injury during fall - [facility] records show progressive dehydration based on serial BUN/Cr levels much improved - most likely etiology is dehydration while remaining on five BP meds including two diuretics. This resolved however as pt was prepped for d/c he had an episode of sudden onset acute hypoxic respiratory failure 2/2 acute cardiogenic pulmonary edema due to hypertensive emergency. His SBP was 200s. This was sudden and occurred at 1 am. He was in severe distress and required BIPAP, IV lasix and nitro gtt. He improved rapidly and by am was on room air and in his usual state. Toprol XL 25 was restarted will the remaining BP meds continued to be held. There were no further complications. He suffered mild CITLALI which resolved. He was also noted anemic. There has been no external bleeding noted. Guaiac is negative. CT neg for RP bleed. Review of [facility] records shows baseline Hb 12-13. Since he is on Coumadin he will need further GI work up w/ upper and lower endoscopy. This can be deferred to the outpatient setting given recent acute issues w/ hypo and hypertension. 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 This too should be followed up as outpatient. Pt also had problems w/ urinary retention. This did no resolve w/ resolutions of constipation. He frequently required straight cath. He also briefly had a chaidez cath during his respiratory crisis. He passed a trial of void prior to d/c Pt was transferred to a Swing Bed for continued PT/OT due to debility following the hospitalization. Regarding his left knee trauma - his effusions and pain improved quickly. Seen by PT and likely hamstring/quad injury. During PT pt was noted to have 'dragging' of RLE. He claims this is chronic. This improved when PT recommended sleep in spinal inflexion position. Spinal stenosis is suspected despite none seen on CT. Pt was given an rx for outpatient MRI lumbar spine upon discharge. - Discharge Data Discharge Date: 08/08/20 Discharge Disposition: Home, W Home Health Agency 06 Condition: Good - Referral to Home Health Date of Face to Face Encounter: 08/08/20 Reason for Homebound Status: medically frail, possible spinal stenosis, left knee contusion, deconditioning s/p prolonged hospital stay Primary Care Physician: Bishop Porras MD Skilled Need: VS monitoring, PT/OT for strenghtening and conditioning, medication and dietary education - Patient Summary/Data Consults: Consultations 08/01/20 14:23 PT Evaluation and Treatment [CONS] Routine 08/01/20 14:41 OT Evaluation and Treatment [CONS] Routine - Discharge Plan *PRESCRIPTION DRUG MONITORING PROGRAM REVIEWED*: Not Applicable *COPY OF PRESCRIPTION DRUG MONITORING REPORT IN PATIENT MIGUEL: Not Applicable Prescriptions/Med Rec: Docusate Sodium [Colace] 100 mg PO BID PRN #60 cap PRN Reason: Constipation Ferrous Sulfate 325 mg PO BIDMEALS #60 tablet Nicotine [Habitrol] 21 mg TRDERM DAILY #14 patch Melatonin 6 mg PO BEDTIME PRN #60 tablet PRN Reason: Insomnia Metoprolol Succinate 25 mg PO DAILY #30 tab Sennosides 17.2 mg PO BEDTIME #60 tablet Home Medications: Home Meds Aspirin [Halfprin] 81 mg PO DAILY 06/16/13 [History] Omeprazole 20 mg PO DAILY 06/16/13 [History] Ezetimibe [Zetia] 10 mg PO DAILY 07/27/20 [History] cilostazoL [Pletal] 100 mg PO BID 07/27/20 [History] Warfarin [Coumadin] 2.5 mg PO .TU,TH07/28/20 [History] Warfarin [Coumadin] 5 mg PO .MON,WED,FRI,SAT,SUN 07/28/20 [History] Lutein/Minerals/Vit A,C & E [I-Adair] 1 each PO BID tablet 08/01/20 [Rx] Metoprolol Succinate [Toprol XL] 25 mg PO Q24H tab.er 08/01/20 [Rx] Nitroglycerin [Nitrostat] 0.4 mg SL Q5M PRN tab.sl 08/01/20 [Rx] Acetaminophen [Tylenol] 650 mg PO Q4H PRN tablet 08/08/20 [Rx] Docusate Sodium [Colace] 100 mg PO BID PRN #60 cap 08/08/20 [Rx] Ferrous Sulfate 325 mg PO BIDMEALS #60 tablet 08/08/20 [Rx] Melatonin 6 mg PO BEDTIME PRN #60 tablet 08/08/20 [Rx] Metoprolol Succinate 25 mg PO DAILY #30 tab 08/08/20 [Rx] Nicotine [Habitrol] 21 mg TRDERM DAILY #14 patch 08/08/20 [Rx] Sennosides 17.2 mg PO BEDTIME #60 tablet 08/08/20 [Rx] Patient Handouts: Metoprolol tablets, Melatonin oral solution, Insomnia, Nitroglycerin sublingual tablets, Edema, [id number] - Discharge Summary/Plan Comment DC Time >30 min.: Yes (40 min) - Patient Data Vitals - Most Recent: Last Vital Signs Temp 98.0 F 08/08/20 08:00 Pulse 93 08/08/20 08:42 Resp 20 08/08/20 08:00 BP 142/73 H 08/08/20 08:42 Pulse Ox 98 08/08/20 08:00 Weight - Most Recent: 185 lb 9.6 oz I&O - Last 24 hours: Intake & Output 08/07/20 08/08/20 08/08/20 22:59 06:59 14:59 Intake Total 540 320 Output Total 450 Balance 540 -450 320 Lab Results - Last 24 hrs: Laboratory Results - last 24 hr 08/08/20 Range/Units 06:43 PT 25.3 H (9.0-12.0) SEC INR 2.6 H (0.9-1.2) Med Orders - Current: Current Medications Acetaminophen (Acetaminophen 325 Mg Tab) 650 mg PO Q4H PRN PRN Reason: Pain (Mild 1-3)/fever Last Admin: 08/07/20 22:18 Dose: 650 mg Documented by: Aspirin (Aspirin 81 Mg Tab.Ec) 81 mg PO DAILY [facility] Last Admin: 08/08/20 08:42 Dose: 81 mg Documented by: Ezetimibe (Ezetimibe 10 Mg Tab) 10 mg PO DAILY [facility] Last Admin: 08/08/20 08:41 Dose: 10 mg Documented by: Ferrous Sulfate (Ferrous Sulfate 325 Mg Tab) 325 mg PO BIDMEALS [facility] Last Admin: 08/08/20 08:41 Dose: 325 mg Documented by: Melatonin (Melatonin 3 Mg Tab) 6 mg PO BEDTIME PRN PRN Reason: Insomnia Last Admin: 08/07/20 22:18 Dose: 6 mg Documented by: Metoprolol Succinate (Metoprolol Succinate 25 Mg Tab.Er) 25 mg PO DAILY [facility] Last Admin: 08/08/20 08:42 Dose: 25 mg Documented by: Miscellaneous Information (Check Nicotine Patch) 1 ea TRDERM BEDTIME [facility] Last Admin: 08/07/20 21:20 Dose: Not Given Documented by: Nicotine (Nicotine 21 Mg/24 Hr Patch) 21 mg TRDERM DAILY [facility] Last Admin: 08/08/20 08:41 Dose: 21 mg Documented by: Nitroglycerin (Nitroglycerin 0.4 Mg Tab.Sl) 0.4 mg SL Q5M PRN PRN Reason: Chest Pain Cilostazol (Pletal) 100 Mg Tab Own Med 0 mg PO BID [facility] Last Admin: 08/08/20 09:00 Dose: 100 mg Documented by: Omeprazole (Omeprazole 20 Mg Cap.Cr) 20 mg PO ACBRK [facility] Last Admin: 08/08/20 06:03 Dose: 20 mg Documented by: Preservision Areds 2 (Own Med) 1 each PO BID [facility] Last Admin: 08/08/20 09:01 Dose: 1 each Documented by: Senna/Docusate Sodium (Docusate Sodium/Sennosides 50-8.6 Mg Tab) 2 tab PO BEDTIME [facility] Last Admin: 08/07/20 21:19 Dose: 2 tab Documented by: Discontinued Medications Furosemide (Furosemide 20 Mg/2 Ml Vial) 20 mg IVPUSH ONETIME ONE Stop: 08/02/20 10:06 Last Admin: 08/02/20 11:02 Dose: 20 mg Documented by: Multivitamins/Minerals (Lutein/Minerals/Vit A,C & E Tab) 1 each PO BID [facility] Nicotine (Nicotine 14 Mg/24 Hr Patch) 14 mg TRDERM DAILY [facility] Last Admin: 08/04/20 08:37 Dose: 14 mg Documented by: Warfarin Sodium (Warfarin 5 Mg Tab) 5 mg PO ONETIME ONE Stop: 08/02/20 14:01 Last Admin: 08/02/20 14:37 Dose: 5 mg Documented by: Warfarin Sodium (Warfarin 5 Mg Tab) 5 mg PO ONETIME ONE Stop: 08/03/20 14:01 Last Admin: 08/03/20 14:41 Dose: 5 mg Documented by: Warfarin Sodium (Warfarin 5 Mg Tab) 5 mg PO ONETIME ONE Stop: 08/04/20 18:49 Last Admin: 08/04/20 20:34 Dose: 5 mg Documented by: Warfarin Sodium (Warfarin 2.5 Mg Tab) 2.5 mg PO ONETIME ONE Stop: 08/05/20 14:27 Last Admin: 08/05/20 15:45 Dose: 2.5 mg Documented by: Warfarin Sodium (Warfarin 5 Mg Tab) 5 mg PO ONETIME ONE Stop: 08/06/20 14:01 Last Admin: 08/06/20 14:57 Dose: 5 mg Documented by: Warfarin Sodium (Warfarin 2.5 Mg Tab) 2.5 mg PO ONETIME ONE Stop: 08/07/20 14:01 Last Admin: 08/07/20 14:47 Dose: 2.5 mg Documented by: - Exam Quality Assessment: Denies: Supplemental Oxygen General: Reports: Alert, Oriented, Cooperative HEENT: Reports: Pupils Equal, Pupils Reactive Neck: Reports: Supple Lungs: Reports: Clear to Auscultation, Normal Respiratory Effort Cardiovascular: Reports: Regular Rate, Regular Rhythm, Irregular Rhythm GI/Abdominal Exam: Normal Bowel Sounds, Soft, Non-Tender, No Distention Back Exam: Reports: Normal Inspection Extremities: No Pedal Edema Skin: Reports: Warm, Dry Wound/Incisions: Reports: Healing Well Neurological: Reports: No New Focal Deficit Psy/Mental Status: Reports: Alert, Normal Affect, Normal Mood
== END 2020-08-08 14:25 | disposition home health service (06) | DRG 948 ==
LOC: DL.MS 14:23
PROVIDERS: ADMIT Internal Medicine; ATTEND Internal Medicine
DX: R53.81 Other malaise (principal); M25.462 Effusion, left knee; I10 Essential (primary) hypertension; I49.9 Cardiac arrhythmia, unspecified; H54.7 Unspecified visual loss; F17.210 Nicotine dependence, cigarettes, uncomplicated; D64.9 Anemia, unspecified; I48.91 Unspecified atrial fibrillation; D35.02 Benign neoplasm of left adrenal gland; I25.10 Atherosclerotic heart disease of native coronary artery without angina pectoris; E78.00 Pure hypercholesterolemia, unspecified; Z98.49 Cataract extraction status, unspecified eye; Z90.49 Acquired absence of other specified parts of digestive tract; Z79.82 Long term (current) use of aspirin; Z79.01 Long term (current) use of anticoagulants; Z79.899 Other long term (current) drug therapy; M48.00 Spinal stenosis, site unspecified
CPT/HCPCS: 36415; 71046; 85610; 97110-GO; 97110-GP; 97116-GP; 97162-GP; 97165-GO; 97530-GO; 97535-GO; 99306; 99316; A9270-GY; J1940

== ENCOUNTER 2020-11-10 10:59 | Inpatient (IN) | payer MEDICARE, BC ==
[2020-11-10] MEDS ORDERED: Morphine 2 MG/ML SYRINGE IVPUSH ONE (11:52)
--- NOTE | 2020-11-10 11:52 | EDM.PDOC ---
ED HPI GENERAL MEDICAL PROBLEM - General Chief Complaint: Upper Extremity Injury/Pain Stated Complaint: INJURY LEFT ARM Time Seen by Provider: 11/10/20 11:15 Source of Information: Reports: Patient, Family History Limitations: Reports: No Limitations - History of Present Illness INITIAL COMMENTS - FREE TEXT/NARRATIVE: This 80 yo male patient reports to the ED with pain to his left elbow and left shoulder. The patient reports he had a fall from his wheeled walker 4 days ago. Yesterday, the patient was seen at the [facility] and had x-rays of his left shoulder and left elbow. The patient has no acute fractures identified. The patient was given Tramadol for pain. The patient reports he has been having increased pain with no pain relief from the Tramadol. The patient is not able to ambulate without the use of his walker. Due to the pain in his left arm, the patient reports he is unable to get to a standing position or use the walker to move about at home. The patient's daughter was called to assist the patient out of bed today. The patient reports he was taking his medications as prescribed. 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 Medication(s) (Tramadol ) Left Arm Pain Score (Numeric/FACES): 10 - Related Data Allergies Allergy/AdvReac Type Severity Reaction Status Date / Time No Known Allergies Allergy Verified 11/10/20 11:15 Home Meds: Home Meds Aspirin [Halfprin] 81 mg PO DAILY 06/16/13 [History] Omeprazole 20 mg PO DAILY 06/16/13 [History] Ezetimibe [Zetia] 10 mg PO DAILY 07/27/20 [History] cilostazoL [Pletal] 100 mg PO BID 07/27/20 [History] Warfarin [Coumadin] 2.5 mg PO .TU,TH07/28/20 [History] Warfarin [Coumadin] 5 mg PO .MON,WED,FRI,SAT,SUN 07/28/20 [History] Lutein/Minerals/Vit A,C & E [I-[place]] 1 each PO BID tablet 08/01/20 [Rx] Metoprolol Succinate [Toprol XL] 25 mg PO Q24H tab.er 08/01/20 [Rx] Nitroglycerin [Nitrostat] 0.4 mg SL Q5M PRN tab.sl 08/01/20 [Rx] Acetaminophen [Tylenol] 650 mg PO Q4H PRN tablet 08/08/20 [Rx] Docusate Sodium [Colace] 100 mg PO BID PRN #60 cap 08/08/20 [Rx] Ferrous Sulfate 325 mg PO BIDMEALS #60 tablet 08/08/20 [Rx] Melatonin 6 mg PO BEDTIME PRN #60 tablet 08/08/20 [Rx] Metoprolol Succinate 25 mg PO DAILY #30 tab 08/08/20 [Rx] Sennosides 17.2 mg PO BEDTIME #60 tablet 08/08/20 [Rx] Bumetanide 2 mg PO BID 11/10/20 [History] traMADol HCl [Tramadol HCl] 50 mg PO BID 11/10/20 [History] Past Medical History HEENT History: Reports: Impaired Vision Cardiovascular History: Reports: Arrhythmia, Blood Clots/VTE/DVT, CAD, Heart Failure, High Cholesterol, Hypertension Respiratory History: Reports: None Gastrointestinal History: Reports: None Genitourinary History: Reports: None Musculoskeletal History: Reports: Other (See Below) Other Musculoskeletal History: left knee sprain Neurological History: Reports: None Psychiatric History: Reports: None Endocrine/Metabolic History: Reports: None Hematologic History: Reports: None Immunologic History: Reports: None Oncologic (Cancer) History: Reports: None Dermatologic History: Reports: None - Infectious Disease History Infectious Disease History: Reports: None - Past Surgical History HEENT Surgical History: Reports: Cataract Surgery Cardiovascular Surgical History: Reports: Carotid Endarterectomy Respiratory Surgical History: Reports: None GI Surgical History: Reports: Appendectomy Male Surgical History: Reports: None Neurological Surgical History: Reports: None Musculoskeletal Surgical History: Reports: None Social & Family History - Family History Family Medical History: No Pertinent Family History - Tobacco Use Tobacco Use Status *Q: Current Every Day Tobacco User Years of Tobacco use: 67 Packs/Tins Daily: 1 - Caffeine Use Caffeine Use: Reports: Coffee - Recreational Drug Use Recreational Drug Use: No Review of Systems - Review of Systems Review Of Systems: Comprehensive ROS is negative, except as noted in HPI. ED EXAM, GENERAL - Physical Exam Exam: See Below Exam Limited By: No Limitations General Appearance: Alert, WD/WN, Moderate Distress, Thin Eye Exam: Bilateral Eye: EOMI, Normal Inspection, PERRL Ears: Normal External Exam, Normal Canal, Hearing Grossly Normal, Normal TMs Nose: Normal Inspection, Normal Mucosa, No Blood Throat/Mouth: Normal Inspection, Normal Lips, Normal Teeth, Normal Gums, Normal Oropharynx, Normal Voice, No Airway Compromise Head: Atraumatic, Normocephalic Neck: Normal Inspection, Supple, Non-Tender, Full Range of Motion Respiratory/Chest: No Respiratory Distress, Lungs Clear, Normal Breath Sounds, No Accessory Muscle Use, Chest Non-Tender Cardiovascular: Normal Peripheral Pulses, Regular Rate, Rhythm, No Edema, No Gallop, No JVD, No Murmur, No Rub GI/Abdominal: Normal Bowel Sounds, Soft, Non-Tender, No Organomegaly, No Distention, No Abnormal Bruit, No Mass (Male) Exam: Deferred Rectal (Males) Exam: Deferred Back Exam: Normal Inspection, Full Range of Motion, NT Extremities: Arm Pain (left shoulder and elbow pain), Limited Range of Motion (due to pain) Neurological: Alert, Oriented, CN II-XII Intact, Normal Cognition Psychiatric: Normal Affect, Normal Mood Skin Exam: Warm, Dry, Intact, Normal Color, No Rash Lymphatic: No Adenopathy Course - Vital Signs Last Recorded V/S: Last Vital Signs Temp 100.5 F 11/10/20 11:12 Pulse 97 11/10/20 11:12 Resp 16 11/10/20 11:12 BP 136/44 L 11/10/20 11:12 Pulse Ox 96 11/10/20 11:12 - Orders/Labs/Meds Orders: Active Orders 24 hr Category Date Time Status Admission Diagnosis [ADT] Urgent ADT 11/10/20 11:40 Ordered Admission Status [Patient Status] [ADT] Routine ADT 11/10/20 11:40 Ordered Departure - Departure Time of Disposition: 11:56 Disposition: Admitted As Inpatient 64 Condition: Fair Clinical Impression: Fall from ground level, Left elbow pain, Decreased activities of daily living (ADL) Left shoulder pain Qualifiers: Chronicity: acute Qualified Code(s): M25.512 - Pain in left shoulder - Discharge Information *PRESCRIPTION DRUG MONITORING PROGRAM REVIEWED*: Not Applicable *COPY OF PRESCRIPTION DRUG MONITORING REPORT IN PATIENT MIGUEL: Not Applicable Care Plan Goals: Discussed the patient's history, examination and previous x-ray results (from yesterday through [facility]) with Dr. Palacios. Dr. Palacios accepted the patient for continued evaluation and further management as an inpatient at [facility]. Sepsis Event Note (ED) - Evaluation Sepsis Screening Result: No Definite Risk - Focused Exam Vital Signs: Vital Signs Temp Pulse Resp BP Pulse Ox 11/10/20 11:12 100.5 F 97 16 136/44 L 96 - My Orders Last 24 Hours: My Active Orders 11/10/20 11:40 Admission Diagnosis [ADT] Urgent Admission Status [Patient Status] [ADT] Routine - Assessment/Plan Last 24 Hours: My Active Orders 11/10/20 11:40 Admission Diagnosis [ADT] Urgent Admission Status [Patient Status] [ADT] Routine
[2020-11-10 12:31] LABS: CORONAVIRUS COVID-19 NAA NEGATIVE (NEGATIVE)
[2020-11-10 12:35] LABS: ANION GAP 12.9 mEq/L (7-13)
[2020-11-10] MEDS ORDERED: Ondansetron 4 MG/2 ML SDV IVPUSH PRN (13:13)
--- NOTE | 2020-11-10 13:22 | PCM.HP ---
H&P History of Present Illness - General Date of Service: 11/10/20 Admit Problem/Dx: Admission Diagnosis/Problem Admission Diagnosis/Problem Pain management Source of Information: Patient - History of Present Illness Initial Comments - Free Text/Narative: The patient is an 78-year-old male who presents to complain of left arm pain. He states he sustained a fall approximate 40 hours prior to hospitalization. He states he was sitting in his wheeled walker when he got up and started moving but forgot to unlock one of the wheels thus causing the walker to rotate. Because this the patient fell backwards and onto his left arm/shoulder. He denies head trauma or loss of consciousness. Over last 24 to 6 hours he has had progressively worsening left arm pain which currently rates 8 out of 10 from the proximal forearm to his left shoulder. The patient presented to outpatient clinic on November 09, 2020 and had x-rays performed which were negative for fracture. The patient presents for further evaluation Left Arm Pain Score (Numeric/FACES): 10 - Related Data Allergies/Adverse Reactions: Allergies Allergy/AdvReac Type Severity Reaction Status Date / Time No Known Allergies Allergy Verified 11/10/20 13:21 Home Medications: Home Meds Aspirin [Halfprin] 81 mg PO DAILY 06/16/13 [History] Omeprazole 20 mg PO DAILY 06/16/13 [History] Ezetimibe [Zetia] 10 mg PO DAILY 07/27/20 [History] cilostazoL [Pletal] 100 mg PO BID 07/27/20 [History] Warfarin [Coumadin] 2.5 mg PO .,07/28/20 [History] Warfarin [Coumadin] 5 mg PO .MON,WED,FRI,SAT,SUN 07/28/20 [History] Lutein/Minerals/Vit A,C & E [I-[place]] 1 each PO BID tablet 08/01/20 [Rx] Metoprolol Succinate [Toprol XL] 25 mg PO Q24H tab.er 08/01/20 [Rx] Nitroglycerin [Nitrostat] 0.4 mg SL Q5M PRN tab.sl 08/01/20 [Rx] Acetaminophen [Tylenol] 650 mg PO Q4H PRN tablet 08/08/20 [Rx] Docusate Sodium [Colace] 100 mg PO BID PRN #60 cap 08/08/20 [Rx] Ferrous Sulfate 325 mg PO BIDMEALS #60 tablet 08/08/20 [Rx] Melatonin 6 mg PO BEDTIME PRN #60 tablet 08/08/20 [Rx] Metoprolol Succinate 25 mg PO DAILY #30 tab 08/08/20 [Rx] Sennosides 17.2 mg PO BEDTIME #60 tablet 08/08/20 [Rx] Bumetanide 2 mg PO BID 11/10/20 [History] traMADol HCl [Tramadol HCl] 50 mg PO BID 11/10/20 [History] Past Medical History HEENT History: Reports: Impaired Vision Cardiovascular History: Reports: Arrhythmia, Blood Clots/VTE/DVT, CAD, Heart Failure, High Cholesterol, Hypertension Respiratory History: Reports: None Gastrointestinal History: Reports: None Genitourinary History: Reports: None Musculoskeletal History: Reports: Other (See Below) Other Musculoskeletal History: left knee sprain Neurological History: Reports: None Psychiatric History: Reports: None Endocrine/Metabolic History: Reports: None Hematologic History: Reports: None Immunologic History: Reports: None Oncologic (Cancer) History: Reports: None Dermatologic History: Reports: None - Infectious Disease History Infectious Disease History: Reports: None - Past Surgical History HEENT Surgical History: Reports: Cataract Surgery Cardiovascular Surgical History: Reports: Carotid Endarterectomy Respiratory Surgical History: Reports: None GI Surgical History: Reports: Appendectomy Male Surgical History: Reports: None Neurological Surgical History: Reports: None Musculoskeletal Surgical History: Reports: None Social & Family History - Family History Family Medical History: No Pertinent Family History - Tobacco Use Tobacco Use Status *Q: Current Every Day Tobacco User Years of Tobacco use: 67 Packs/Tins Daily: 1 - Caffeine Use Caffeine Use: Reports: Coffee - Recreational Drug Use Recreational Drug Use: No H&P Review of Systems - Review of Systems: Review Of Systems: See Below General: Reports: No Symptoms HEENT: Reports: No Symptoms Pulmonary: Reports: No Symptoms Cardiovascular: Reports: No Symptoms Gastrointestinal: Reports: No Symptoms Musculoskeletal: Reports: Arm Pain Skin: Reports: No Symptoms Psychiatric: Reports: No Symptoms Neurological: Reports: No Symptoms Hematologic/Lymphatic: Reports: No Symptoms Immunologic: Reports: No Symptoms Exam - Exam Exam: See Below - Vital Signs Vital Signs: Last Vital Signs Temp 99.8 F 11/10/20 12:29 Pulse 97 11/10/20 11:12 Resp 16 11/10/20 11:12 BP 136/44 L 11/10/20 11:12 Pulse Ox 96 11/10/20 11:12 Weight: 173 lb - Exam General: Alert, Oriented, 4 HEENT: PERRLA, Hearing Intact, Mucosa Moist & [place], Nares Patent, Normal Nasal Septum, Posterior Pharynx Clear, Conjunctiva Clear, EOMI, EACs Clear, TMs Clear Neck: Supple, Trachea Midline, 2 Lungs: Clear to Auscultation, Normal Respiratory Effort Cardiovascular: Regular Rate, Regular Rhythm GI/Abdominal Exam: Normal Bowel Sounds, Soft, Non-Tender, No Organomegaly, No Distention, No Abnormal Bruit, No Mass, Pelvis Stable Extremities: Arm Pain Skin: Warm, Dry, Intact Neurological: Cranial Nerves Intact, Reflexes Equal Bilateral Neuro Extensive - Mental Status: Alert, Oriented x3, Normal Mood/Affect, Normal Cognition Neuro Extensive - Motor, Sensory, Reflexes: CN II-XII Intact, Normal Gait, Normal Reflexes Psychiatric: Alert, Normal Affect, Normal Mood - Patient Data Lab Results Last 24 hrs: Laboratory Results - last 24 hr 11/10/20 11/10/20 11/10/20 Range/Units 11:44 12:11 12:11 WBC 11.1 H (5.0-10.0) 10^3/uL RBC 4.00 L (4.6-6.2) 10^6/uL Hgb 12.0 L D (14.0-18.0) g/dL Hct 35.9 L (40.0-54.0) % MCV 89.8 D (80-100) fL MCH 30.0 (27.0-34.0) pg MCHC 33.4 (33.0-35.0) g/dL Plt Count 251 (150-450) 10^3/uL Neut % (Auto) 71.6 (42.2-75.2) % Lymph % (Auto) 9.5 L (20.5-50.1) % [place] % (Auto) 18.6 H (2-8) % Eos % (Auto) 0.1 L (1.0-3.0) % Baso % (Auto) 0.2 (0.0-1.0) % Sodium 138 (136-145) mmol/L Potassium 3.9 (3.5-5.1) mmol/L Chloride 100 (98-107) mmol/L Carbon Dioxide 29 (21-32) mmol/L Anion Gap 12.9 (7-13) mEq/L BUN 31 H (7-18) mg/dL Creatinine 1.22 (0.70-1.30) mg/dL Est Cr Clr Drug Dosing 42.13 mL/min Estimated GFR (MDRD) 57 BUN/Creatinine Ratio 25.4 (No establ ref range) Glucose 121 H (70-99) mg/dL Calcium 8.7 (8.5-10.1) mg/dL Total Bilirubin 0.9 (0.2-1.0) mg/dL AST 20 (15-37) U/L ALT 28 (16-63) U/L Alkaline Phosphatase 105 (46-116) U/L Total Protein 7.0 (6.4-8.2) g/dL Albumin 3.3 L (3.4-5.0) g/dL Globulin 3.7 Albumin/Globulin Ratio 0.89 Urine Color (YELLOW) Urine Appearance (CLEAR) Urine pH (5.0-9.0) Ur Specific [place] (1.005-1.030) Urine Protein (NEGATIVE) Urine Glucose (UA) (NEGATIVE) Urine Ketones (NEGATIVE) Urine Occult Blood (NEGATIVE) Urine Nitrite (NEGATIVE) Urine Bilirubin (NEGATIVE) Urine Urobilinogen (0.2-1.0) mg/dL Ur Leukocyte Esterase (NEGATIVE) Urine RBC /HPF Urine WBC (0-5/HPF) /HPF Ur Epithelial Cells (NOT SEEN) /HPF Urine Bacteria (0-FEW/HPF) /HPF Urine Mucus (NOT SEEN) /LPF Influenza Type A RNA Negative (NEGATIVE) Influenza Type B RNA Negative (NEGATIVE) SARS-CoV-2 RNA (HIGINIO) Negative (NEGATIVE) 11/10/20 Range/Units 12:25 WBC (5.0-10.0) 10^3/uL RBC (4.6-6.2) 10^6/uL Hgb (14.0-18.0) g/dL Hct (40.0-54.0) % MCV (80-100) fL MCH (27.0-34.0) pg MCHC (33.0-35.0) g/dL Plt Count (150-450) 10^3/uL Neut % (Auto) (42.2-75.2) % Lymph % (Auto) (20.5-50.1) % [place] % (Auto) (2-8) % Eos % (Auto) (1.0-3.0) % Baso % (Auto) (0.0-1.0) % Sodium (136-145) mmol/L Potassium (3.5-5.1) mmol/L Chloride (98-107) mmol/L Carbon Dioxide (21-32) mmol/L Anion Gap (7-13) mEq/L BUN (7-18) mg/dL Creatinine (0.70-1.30) mg/dL Est Cr Clr Drug Dosing mL/min Estimated GFR (MDRD) BUN/Creatinine Ratio (No establ ref range) Glucose (70-99) mg/dL Calcium (8.5-10.1) mg/dL Total Bilirubin (0.2-1.0) mg/dL AST (15-37) U/L ALT (16-63) U/L Alkaline Phosphatase (46-116) U/L Total Protein (6.4-8.2) g/dL Albumin (3.4-5.0) g/dL Globulin Albumin/Globulin Ratio Urine Color Dark yellow (YELLOW) Urine Appearance Clear (CLEAR) Urine pH 5.5 (5.0-9.0) Ur Specific [place] 1.015 (1.005-1.030) Urine Protein Trace H (NEGATIVE) Urine Glucose (UA) Negative (NEGATIVE) Urine Ketones Negative (NEGATIVE) Urine Occult Blood Small H (NEGATIVE) Urine Nitrite Negative (NEGATIVE) Urine Bilirubin Negative (NEGATIVE) Urine Urobilinogen 0.2 (0.2-1.0) mg/dL Ur Leukocyte Esterase Negative (NEGATIVE) Urine RBC 0-5 /HPF Urine WBC Not seen (0-5/HPF) /HPF Ur Epithelial Cells Rare (NOT SEEN) /HPF Urine Bacteria Not seen (0-FEW/HPF) /HPF Urine Mucus Not seen (NOT SEEN) /LPF Influenza Type A RNA (NEGATIVE) Influenza Type B RNA (NEGATIVE) SARS-CoV-2 RNA (HIGINIO) (NEGATIVE) Result Diagrams: 11/10/20 12:11 11/10/20 12:11 Problem List Initiated/Reviewed/Updated: Yes Orders Last 24hrs: Active Orders 24 hr Category Date Time Status Admission Diagnosis [ADT] Urgent ADT 11/10/20 11:40 Ordered Admission Status [Patient Status] [ADT] Routine ADT 11/10/20 11:40 Active Antiembolic Devices [RC] PER UNIT ROUTINE Care 11/10/20 13:14 Ordered CPAP Adult [RT BiPAP/CPAP] [RC] ASDIRECTED Care 11/10/20 13:16 Ordered Peripheral IV Care [RC] . DIRECTED Care 11/10/20 13:15 Ordered Up With Assistance [RC] ASDIRECTED Care 11/10/20 13:13 Ordered Vital Signs [RC] Q4H Care 11/10/20 13:13 Ordered Consult to Case Management/Radio Survey Worker [CONS] Cons 11/10/20 13:16 Ordered Routine OT Evaluation and Treatment [CONS] Routine Cons 11/10/20 13:16 Ordered PT Evaluation and Treatment [CONS] Routine Cons 11/10/20 13:16 Ordered Heart Healthy Diet [DIET] Diet 11/10/20 Lunch Ordered Chest 1V Frontal [CR] Routine Exams 11/10/20 13:17 Ordered CBC WITH AUTO DIFF [HEME] Routine Lab 11/11/20 05:00 Ordered FERRITIN [CHEM] Routine Lab 11/10/20 13:17 Ordered INR,PT,PROTHROMBIN TIME [COAG] Routine Lab 11/10/20 13:17 Ordered IRON/TIBC [CHEM] Routine Lab 11/10/20 13:17 Ordered OCCULT BLOOD DIAGNOSTIC [OP] Routine Lab 11/10/20 13:17 Ordered Acetaminophen [TylenoL] Med 11/10/20 13:13 Ordered 650 mg PO Q4H PRN Acetaminophen/HYDROcodone [[place] 325-5 MG] Med 11/10/20 13:15 Ordered 1 tab PO Q4H PRN Morphine Med 11/10/20 13:15 Ordered 1 mg IVPUSH Q4H PRN Ondansetron [Zofran] Med 11/10/20 13:13 Ordered 4 mg IVPUSH Q4H PRN Sodium Chloride 0.9% [Saline Flush] Med 11/10/20 13:13 Ordered 10 ml FLUSH ASDIRECTED PRN Peripheral IV Insertion Adult [OM.PC] Routine Oth 11/10/20 13:13 Ordered Saline Lock Insert [OM.PC] Routine Oth 11/10/20 13:13 Ordered Sequential Compression Device [OM.PC] Per Unit Routine Oth 11/10/20 13:14 Ordered Resuscitation Status Routine Resus Stat 11/10/20 13:13 Ordered Medication Orders Acetaminophen (Acetaminophen 325 Mg Tab) 650 mg PO Q4H PRN PRN Reason: Pain (Mild 1-3)/fever Ondansetron HCl (Ondansetron 4 Mg/2 Ml Sdv) 4 mg IVPUSH Q4H PRN PRN Reason: Nausea/Vomiting Sodium Chloride (Sodium Chloride 0.9% 10 Ml Syringe) 10 ml FLUSH ASDIRECTED PRN PRN Reason: Keep Vein Open Assessment/Plan Comment:: Status post fall with resultant left arm pain. As needed analgesia. PT eval. OT eval. Case management evaluation for possible placement Osteoarthritis Macular degeneration Severe pulmonary hypertension Degenerative disc disease History of DVT Obstructive sleep apnea. CPAP/BiPAP: Okay to use home device and/or pressure when sleeping for obstructive sleep apnea if the patient uses CPAP or BiPAP at home Peripheral vascular disease Constipation Anemia with history of iron deficiency. Will monitor hemoglobin level intermittently. Check serum ferritin, iron panel, fecal occult blood Documented history of CHF however echocardiogram from August 01, 2020 was unremarkable with exception of severe pulmonary hypertension Coronary artery disease GERD Hyperlipidemia Hypertension Smoker. Patient will be counseled regarding smoking cessation Erectile dysfunction Diverticulosis Right adrenal adenoma. Outpatient monitoring with his primary care physician or provider Cholelithiasis, asymptomatic Spinal stenosis Osteopenia DVT prophylaxis. Bilateral CD Disposition: Anticipate discharge within 48 hours pending evaluation by physical therapy and Occupational Therapy in conjunction with case management. At the time of admission, the patient for medications were not yet input to the EMR/DHR system. Once they are, they will be reviewed and reconciled
[2020-11-10] MEDS ORDERED: Morphine 2 MG/ML SYRINGE IVPUSH PRN (14:00)
--- NOTE | 2020-11-10 14:05 | CR ---
EXAMINATION: Chest 1V Frontal SEX: Male AGE: 80 years CLINICAL HISTORY: 80-year-old febrile male. Comparisons CXR and 02 August 2020 (CHF). Interpretation: Abnormal. 1. Hiatus hernia. 2. Chronic mild cardiomegaly without current signs of vascular congestion, cephalization of flow, alveolar edema or dependent pleural effusion i.e. definite resolution/improvement since radiographs early July 2020. 3. Calcified pleural and pericardial "plaques" bilaterally. 4. Midline soft tissue polypoid-like mass density in the upper airway (trachea). 5. No new parenchymal lung mass lesion or hilar lymphadenopathy. 6. No alveolar infiltrate, atelectasis/collapse or peripheral "groundglass" interstitial lung densities. CONCLUSION: No signs of lobar pneumonia or heart failure. Pleural/pericardial plaque. Suspicious trachea.
[2020-11-10] MEDS: Acetaminophen/HYDROcodone 325-5 MG Tab PO PRN ×2 (15:24→23:49)
[2020-11-10] MEDS ORDERED: Warfarin 2.5 MG Tab PO SCH (16:00)
[2020-11-10] MEDS ORDERED: Ferrous Sulfate 325 MG Tab PO SCH (18:00)
[2020-11-10] MEDS: Iron Sucrose Complex 100 MG in Sodium Chloride 0.9% 100 ML IV SCH (18:51)
[2020-11-10] MEDS: Acetaminophen 325 MG Tab PO PRN (20:12)
[2020-11-10] MEDS: traMADol 50 MG Tab PO SCH (20:12)
[2020-11-11] MEDS: Acetaminophen/HYDROcodone 325-5 MG Tab PO PRN ×2 (03:48→10:28)
[2020-11-11] MEDS: Omeprazole 20 MG Cap.CR PO SCH (05:47)
--- NOTE | 2020-11-11 07:26 | PCM.PN ---
- General Info Date of Service: 11/11/20 Subjective Update: The patient complains of 4 out of 10 left elbow pain. He states that has been adequately controlled with as needed IV morphine. Aside from this he endorses no complaints. He denies fever, rigors, nausea, vomiting, cough, wheeze, abdominal pain, chest pain, or any other constitutional complaints. I explained to the patient his current medical condition and plan of care and I have answered all of his questions Functional Status: Reports: Pain Controlled - Review of Systems General: Reports: No Symptoms HEENT: Reports: No Symptoms Pulmonary: Reports: No Symptoms Cardiovascular: Reports: No Symptoms Gastrointestinal: Reports: No Symptoms Genitourinary: Reports: No Symptoms Musculoskeletal: Reports: No Symptoms Skin: Reports: No Symptoms Neurological: Reports: No Symptoms Psychiatric: Reports: No Symptoms - Patient Data Vitals - Most Recent: Last Vital Signs Temp 99.4 F 11/11/20 03:43 Pulse 93 11/11/20 03:43 Resp 18 11/11/20 03:43 BP 123/55 L 11/11/20 03:43 Pulse Ox 94 L 11/11/20 03:43 Weight - Most Recent: 168 lb 14.4 oz I&O - Last 24 Hours: Intake & Output 11/10/20 11/11/20 11/11/20 22:59 06:59 14:59 Intake Total 470 150 Output Total 350 450 Balance 120 -300 Lab Results Last 24 Hours: Laboratory Results - last 24 hr 11/10/20 11/10/20 11/10/20 Range/Units 11:44 12:11 12:11 WBC 11.1 H (5.0-10.0) 10^3/uL RBC 4.00 L (4.6-6.2) 10^6/uL Hgb 12.0 L D (14.0-18.0) g/dL Hct 35.9 L (40.0-54.0) % MCV 89.8 D (80-100) fL MCH 30.0 (27.0-34.0) pg MCHC 33.4 (33.0-35.0) g/dL Plt Count 251 (150-450) 10^3/uL Neut % (Auto) 71.6 (42.2-75.2) % Lymph % (Auto) 9.5 L (20.5-50.1) % [place] % (Auto) 18.6 H (2-8) % Eos % (Auto) 0.1 L (1.0-3.0) % Baso % (Auto) 0.2 (0.0-1.0) % PT (9.0-12.0) SEC INR (0.9-1.2) Sodium 138 (136-145) mmol/L Potassium 3.9 (3.5-5.1) mmol/L Chloride 100 (98-107) mmol/L Carbon Dioxide 29 (21-32) mmol/L Anion Gap 12.9 (7-13) mEq/L BUN 31 H (7-18) mg/dL Creatinine 1.22 (0.70-1.30) mg/dL Est Cr Clr Drug Dosing 42.13 mL/min Estimated GFR (MDRD) 57 BUN/Creatinine Ratio 25.4 (No establ ref range) Glucose 121 H (70-99) mg/dL Calcium 8.7 (8.5-10.1) mg/dL Iron (65-175) ug/dL TIBC (250-450) ug/dL % Saturation (20.0-50.0) % Ferritin (26-388) mg/mL Total Bilirubin 0.9 (0.2-1.0) mg/dL AST 20 (15-37) U/L ALT 28 (16-63) U/L Alkaline Phosphatase 105 (46-116) U/L Total Protein 7.0 (6.4-8.2) g/dL Albumin 3.3 L (3.4-5.0) g/dL Globulin 3.7 Albumin/Globulin Ratio 0.89 Urine Color (YELLOW) Urine Appearance (CLEAR) Urine pH (5.0-9.0) Ur Specific [place] (1.005-1.030) Urine Protein (NEGATIVE) Urine Glucose (UA) (NEGATIVE) Urine Ketones (NEGATIVE) Urine Occult Blood (NEGATIVE) Urine Nitrite (NEGATIVE) Urine Bilirubin (NEGATIVE) Urine Urobilinogen (0.2-1.0) mg/dL Ur Leukocyte Esterase (NEGATIVE) Urine RBC /HPF Urine WBC (0-5/HPF) /HPF Ur Epithelial Cells (NOT SEEN) /HPF Urine Bacteria (0-FEW/HPF) /HPF Urine Mucus (NOT SEEN) /LPF Influenza Type A RNA Negative (NEGATIVE) Influenza Type B RNA Negative (NEGATIVE) SARS-CoV-2 RNA (HIGINIO) Negative (NEGATIVE) 11/10/20 11/10/20 11/10/20 Range/Units 12:11 12:25 14:00 WBC (5.0-10.0) 10^3/uL RBC (4.6-6.2) 10^6/uL Hgb (14.0-18.0) g/dL Hct (40.0-54.0) % MCV (80-100) fL MCH (27.0-34.0) pg MCHC (33.0-35.0) g/dL Plt Count (150-450) 10^3/uL Neut % (Auto) (42.2-75.2) % Lymph % (Auto) (20.5-50.1) % [place] % (Auto) (2-8) % Eos % (Auto) (1.0-3.0) % Baso % (Auto) (0.0-1.0) % PT 26.2 H (9.0-12.0) SEC INR 2.6 H (0.9-1.2) Sodium (136-145) mmol/L Potassium (3.5-5.1) mmol/L Chloride (98-107) mmol/L Carbon Dioxide (21-32) mmol/L Anion Gap (7-13) mEq/L BUN (7-18) mg/dL Creatinine (0.70-1.30) mg/dL Est Cr Clr Drug Dosing mL/min Estimated GFR (MDRD) BUN/Creatinine Ratio (No establ ref range) Glucose (70-99) mg/dL Calcium (8.5-10.1) mg/dL Iron 16 L (65-175) ug/dL TIBC 234 L (250-450) ug/dL % Saturation 6.8 L (20.0-50.0) % Ferritin 203 (26-388) mg/mL Total Bilirubin (0.2-1.0) mg/dL AST (15-37) U/L ALT (16-63) U/L Alkaline Phosphatase (46-116) U/L Total Protein (6.4-8.2) g/dL Albumin (3.4-5.0) g/dL Globulin Albumin/Globulin Ratio Urine Color Dark yellow (YELLOW) Urine Appearance Clear (CLEAR) Urine pH 5.5 (5.0-9.0) Ur Specific [place] 1.015 (1.005-1.030) Urine Protein Trace H (NEGATIVE) Urine Glucose (UA) Negative (NEGATIVE) Urine Ketones Negative (NEGATIVE) Urine Occult Blood Small H (NEGATIVE) Urine Nitrite Negative (NEGATIVE) Urine Bilirubin Negative (NEGATIVE) Urine Urobilinogen 0.2 (0.2-1.0) mg/dL Ur Leukocyte Esterase Negative (NEGATIVE) Urine RBC 0-5 /HPF Urine WBC Not seen (0-5/HPF) /HPF Ur Epithelial Cells Rare (NOT SEEN) /HPF Urine Bacteria Not seen (0-FEW/HPF) /HPF Urine Mucus Not seen (NOT SEEN) /LPF Influenza Type A RNA (NEGATIVE) Influenza Type B RNA (NEGATIVE) SARS-CoV-2 RNA (HIGINIO) (NEGATIVE) 11/11/20 Range/Units 06:20 WBC 10.1 H (5.0-10.0) 10^3/uL RBC 3.70 L (4.6-6.2) 10^6/uL Hgb 11.1 L (14.0-18.0) g/dL Hct 33.4 L (40.0-54.0) % MCV 90.3 (80-100) fL MCH 30.0 (27.0-34.0) pg MCHC 33.2 (33.0-35.0) g/dL Plt Count 223 (150-450) 10^3/uL Neut % (Auto) 71.0 (42.2-75.2) % Lymph % (Auto) 12.6 L (20.5-50.1) % [place] % (Auto) 15.8 H (2-8) % Eos % (Auto) 0.4 L (1.0-3.0) % Baso % (Auto) 0.2 (0.0-1.0) % PT (9.0-12.0) SEC INR (0.9-1.2) Sodium (136-145) mmol/L Potassium (3.5-5.1) mmol/L Chloride (98-107) mmol/L Carbon Dioxide (21-32) mmol/L Anion Gap (7-13) mEq/L BUN (7-18) mg/dL Creatinine (0.70-1.30) mg/dL Est Cr Clr Drug Dosing mL/min Estimated GFR (MDRD) BUN/Creatinine Ratio (No establ ref range) Glucose (70-99) mg/dL Calcium (8.5-10.1) mg/dL Iron (65-175) ug/dL TIBC (250-450) ug/dL % Saturation (20.0-50.0) % Ferritin (26-388) mg/mL Total Bilirubin (0.2-1.0) mg/dL AST (15-37) U/L ALT (16-63) U/L Alkaline Phosphatase (46-116) U/L Total Protein (6.4-8.2) g/dL Albumin (3.4-5.0) g/dL Globulin Albumin/Globulin Ratio Urine Color (YELLOW) Urine Appearance (CLEAR) Urine pH (5.0-9.0) Ur Specific [place] (1.005-1.030) Urine Protein (NEGATIVE) Urine Glucose (UA) (NEGATIVE) Urine Ketones (NEGATIVE) Urine Occult Blood (NEGATIVE) Urine Nitrite (NEGATIVE) Urine Bilirubin (NEGATIVE) Urine Urobilinogen (0.2-1.0) mg/dL Ur Leukocyte Esterase (NEGATIVE) Urine RBC /HPF Urine WBC (0-5/HPF) /HPF Ur Epithelial Cells (NOT SEEN) /HPF Urine Bacteria (0-FEW/HPF) /HPF Urine Mucus (NOT SEEN) /LPF Influenza Type A RNA (NEGATIVE) Influenza Type B RNA (NEGATIVE) SARS-CoV-2 RNA (HIGINIO) (NEGATIVE) Med Orders - Current: Current Medications Acetaminophen (Acetaminophen 325 Mg Tab) 650 mg PO Q4H PRN PRN Reason: Pain (Mild 1-3)/fever Last Admin: 11/10/20 20:12 Dose: 650 mg Documented by: Hydrocodone Bitart/Acetaminophen (Acetaminophen/Hydrocodone 325-5 Mg Tab) 1 tab PO Q4H PRN PRN Reason: Pain (moderate 4-6) Last Admin: 11/11/20 03:48 Dose: 1 tab Documented by: Ascorbic Acid (Ascorbic Acid 500 Mg Tab) 500 mg PO DAILY [facility]OR[facility] Aspirin (Aspirin 81 Mg Tab.Ec) 81 mg PO DAILY [facility] Bumetanide (Bumetanide 1 Mg Tab) 2 mg PO BIDDIURETIC [facility] Ezetimibe (Ezetimibe 10 Mg Tab) 10 mg PO DAILY [facility]OR[facility] Iron Sucrose 100 mg/ Sodium (Chloride) 105 mls @ 400 mls/hr IV DAILY@1000 [facility] Last Admin: 11/10/20 18:51 Dose: Not Given Documented by: Melatonin (Melatonin 3 Mg Tab) 6 mg PO BEDTIME PRN PRN Reason: Insomnia Metoprolol Succinate (Metoprolol Succinate 50 Mg Tab.Er) 50 mg PO DAILY [facility] Morphine Sulfate (Morphine 2 Mg/Ml Syringe) 1 mg IVPUSH Q4H PRN PRN Reason: Pain (severe 7-10) Last Admin: 11/10/20 14:28 Dose: 1 mg Documented by: Non-Formulary Medication (Cilostazol [Pletal]) 100 mg PO BID [facility] Omeprazole (Omeprazole 20 Mg Cap.Cr) 20 mg PO ACBREAKFAST [facility] Last Admin: 11/11/20 05:47 Dose: 20 mg Documented by: Ondansetron HCl (Ondansetron 4 Mg/2 Ml Sdv) 4 mg IVPUSH Q4H PRN PRN Reason: Nausea/Vomiting Sodium Chloride (Sodium Chloride 0.9% 10 Ml Syringe) 10 ml FLUSH ASDIRECTED PRN PRN Reason: Keep Vein Open Tramadol HCl (Tramadol 50 Mg Tab) 50 mg PO BID [facility] Last Admin: 11/10/20 20:12 Dose: 50 mg Documented by: Warfarin Sodium (Warfarin 2.5 Mg Tab) 2.5 mg PO TuTh@1400 [facility] Last Admin: 11/10/20 17:39 Dose: 2.5 mg Documented by: Warfarin Sodium (Warfarin 5 Mg Tab) 5 mg PO MoWeFr@1400 [facility] Warfarin Sodium (Warfarin 5 Mg Tab) 5 mg PO SuSa@1400 [facility] Discontinued Medications Ferrous Sulfate (Ferrous Sulfate 325 Mg Tab) 325 mg PO BIDMEALS [facility] Metoprolol Succinate (Metoprolol Succinate 25 Mg Tab.Er) 25 mg PO DAILY [facility] Morphine Sulfate (Morphine 2 Mg/Ml Syringe) 2 mg IVPUSH ONETIME ONE Stop: 11/10/20 11:53 Last Admin: 11/10/20 11:59 Dose: 2 mg Documented by: - Exam General: Alert, Oriented HEENT: Pupils Equal, Pupils Reactive, EOMI, Mucous Membr. Moist/[place] Neck: Supple Lungs: Clear to Auscultation, Normal Respiratory Effort Cardiovascular: Regular Rate, Regular Rhythm GI/Abdominal Exam: Normal Bowel Sounds, Soft, Non-Tender, No Organomegaly, No Distention, No Abnormal Bruit, No Mass, Pelvis Stable Extremities: Normal Inspection, Normal Range of Motion, Non-Tender, No Pedal E rubia, Normal Capillary Refill Skin: Warm, Dry, Intact Wound/Incisions: Healing Well Neurological: No New Focal Deficit Psy/Mental Status: Alert, Normal Affect, Normal Mood - Patient Data Lab Results Last 24 hrs: Laboratory Results - last 24 hr 11/10/20 11/10/20 11/10/20 Range/Units 11:44 12:11 12:11 WBC 11.1 H (5.0-10.0) 10^3/uL RBC 4.00 L (4.6-6.2) 10^6/uL Hgb 12.0 L D (14.0-18.0) g/dL Hct 35.9 L (40.0-54.0) % MCV 89.8 D (80-100) fL MCH 30.0 (27.0-34.0) pg MCHC 33.4 (33.0-35.0) g/dL Plt Count 251 (150-450) 10^3/uL Neut % (Auto) 71.6 (42.2-75.2) % Lymph % (Auto) 9.5 L (20.5-50.1) % [place] % (Auto) 18.6 H (2-8) % Eos % (Auto) 0.1 L (1.0-3.0) % Baso % (Auto) 0.2 (0.0-1.0) % PT (9.0-12.0) SEC INR (0.9-1.2) Sodium 138 (136-145) mmol/L Potassium 3.9 (3.5-5.1) mmol/L Chloride 100 (98-107) mmol/L Carbon Dioxide 29 (21-32) mmol/L Anion Gap 12.9 (7-13) mEq/L BUN 31 H (7-18) mg/dL Creatinine 1.22 (0.70-1.30) mg/dL Est Cr Clr Drug Dosing 42.13 mL/min Estimated GFR (MDRD) 57 BUN/Creatinine Ratio 25.4 (No establ ref range) Glucose 121 H (70-99) mg/dL Calcium 8.7 (8.5-10.1) mg/dL Iron (65-175) ug/dL TIBC (250-450) ug/dL % Saturation (20.0-50.0) % Ferritin (26-388) mg/mL Total Bilirubin 0.9 (0.2-1.0) mg/dL AST 20 (15-37) U/L ALT 28 (16-63) U/L Alkaline Phosphatase 105 (46-116) U/L Total Protein 7.0 (6.4-8.2) g/dL Albumin 3.3 L (3.4-5.0) g/dL Globulin 3.7 Albumin/Globulin Ratio 0.89 Urine Color (YELLOW) Urine Appearance (CLEAR) Urine pH (5.0-9.0) Ur Specific [place] (1.005-1.030) Urine Protein (NEGATIVE) Urine Glucose (UA) (NEGATIVE) Urine Ketones (NEGATIVE) Urine Occult Blood (NEGATIVE) Urine Nitrite (NEGATIVE) Urine Bilirubin (NEGATIVE) Urine Urobilinogen (0.2-1.0) mg/dL Ur Leukocyte Esterase (NEGATIVE) Urine RBC /HPF Urine WBC (0-5/HPF) /HPF Ur Epithelial Cells (NOT SEEN) /HPF Urine Bacteria (0-FEW/HPF) /HPF Urine Mucus (NOT SEEN) /LPF Influenza Type A RNA Negative (NEGATIVE) Influenza Type B RNA Negative (NEGATIVE) SARS-CoV-2 RNA (HIGINIO) Negative (NEGATIVE) 11/10/20 11/10/20 11/10/20 Range/Units 12:11 12:25 14:00 WBC (5.0-10.0) 10^3/uL RBC (4.6-6.2) 10^6/uL Hgb (14.0-18.0) g/dL Hct (40.0-54.0) % MCV (80-100) fL MCH (27.0-34.0) pg MCHC (33.0-35.0) g/dL Plt Count (150-450) 10^3/uL Neut % (Auto) (42.2-75.2) % Lymph % (Auto) (20.5-50.1) % [place] % (Auto) (2-8) % Eos % (Auto) (1.0-3.0) % Baso % (Auto) (0.0-1.0) % PT 26.2 H (9.0-12.0) SEC INR 2.6 H (0.9-1.2) Sodium (136-145) mmol/L Potassium (3.5-5.1) mmol/L Chloride (98-107) mmol/L Carbon Dioxide (21-32) mmol/L Anion Gap (7-13) mEq/L BUN (7-18) mg/dL Creatinine (0.70-1.30) mg/dL Est Cr Clr Drug Dosing mL/min Estimated GFR (MDRD) BUN/Creatinine Ratio (No establ ref range) Glucose (70-99) mg/dL Calcium (8.5-10.1) mg/dL Iron 16 L (65-175) ug/dL TIBC 234 L (250-450) ug/dL % Saturation 6.8 L (20.0-50.0) % Ferritin 203 (26-388) mg/mL Total Bilirubin (0.2-1.0) mg/dL AST (15-37) U/L ALT (16-63) U/L Alkaline Phosphatase (46-116) U/L Total Protein (6.4-8.2) g/dL Albumin (3.4-5.0) g/dL Globulin Albumin/Globulin Ratio Urine Color Dark yellow (YELLOW) Urine Appearance Clear (CLEAR) Urine pH 5.5 (5.0-9.0) Ur Specific [place] 1.015 (1.005-1.030) Urine Protein Trace H (NEGATIVE) Urine Glucose (UA) Negative (NEGATIVE) Urine Ketones Negative (NEGATIVE) Urine Occult Blood Small H (NEGATIVE) Urine Nitrite Negative (NEGATIVE) Urine Bilirubin Negative (NEGATIVE) Urine Urobilinogen 0.2 (0.2-1.0) mg/dL Ur Leukocyte Esterase Negative (NEGATIVE) Urine RBC 0-5 /HPF Urine WBC Not seen (0-5/HPF) /HPF Ur Epithelial Cells Rare (NOT SEEN) /HPF Urine Bacteria Not seen (0-FEW/HPF) /HPF Urine Mucus Not seen (NOT SEEN) /LPF Influenza Type A RNA (NEGATIVE) Influenza Type B RNA (NEGATIVE) SARS-CoV-2 RNA (HIGINIO) (NEGATIVE) 11/11/20 Range/Units 06:20 WBC 10.1 H (5.0-10.0) 10^3/uL RBC 3.70 L (4.6-6.2) 10^6/uL Hgb 11.1 L (14.0-18.0) g/dL Hct 33.4 L (40.0-54.0) % MCV 90.3 (80-100) fL MCH 30.0 (27.0-34.0) pg MCHC 33.2 (33.0-35.0) g/dL Plt Count 223 (150-450) 10^3/uL Neut % (Auto) 71.0 (42.2-75.2) % Lymph % (Auto) 12.6 L (20.5-50.1) % [place] % (Auto) 15.8 H (2-8) % Eos % (Auto) 0.4 L (1.0-3.0) % Baso % (Auto) 0.2 (0.0-1.0) % PT (9.0-12.0) SEC INR (0.9-1.2) Sodium (136-145) mmol/L Potassium (3.5-5.1) mmol/L Chloride (98-107) mmol/L Carbon Dioxide (21-32) mmol/L Anion Gap (7-13) mEq/L BUN (7-18) mg/dL Creatinine (0.70-1.30) mg/dL Est Cr Clr Drug Dosing mL/min Estimated GFR (MDRD) BUN/Creatinine Ratio (No establ ref range) Glucose (70-99) mg/dL Calcium (8.5-10.1) mg/dL Iron (65-175) ug/dL TIBC (250-450) ug/dL % Saturation (20.0-50.0) % Ferritin (26-388) mg/mL Total Bilirubin (0.2-1.0) mg/dL AST (15-37) U/L ALT (16-63) U/L Alkaline Phosphatase (46-116) U/L Total Protein (6.4-8.2) g/dL Albumin (3.4-5.0) g/dL Globulin Albumin/Globulin Ratio Urine Color (YELLOW) Urine Appearance (CLEAR) Urine pH (5.0-9.0) Ur Specific [place] (1.005-1.030) Urine Protein (NEGATIVE) Urine Glucose (UA) (NEGATIVE) Urine Ketones (NEGATIVE) Urine Occult Blood (NEGATIVE) Urine Nitrite (NEGATIVE) Urine Bilirubin (NEGATIVE) Urine Urobilinogen (0.2-1.0) mg/dL Ur Leukocyte Esterase (NEGATIVE) Urine RBC /HPF Urine WBC (0-5/HPF) /HPF Ur Epithelial Cells (NOT SEEN) /HPF Urine Bacteria (0-FEW/HPF) /HPF Urine Mucus (NOT SEEN) /LPF Influenza Type A RNA (NEGATIVE) Influenza Type B RNA (NEGATIVE) SARS-CoV-2 RNA (IHGINIO) (NEGATIVE) Result Diagrams: 11/11/20 06:20 11/10/20 12:11 Sepsis Event Note - Evaluation Sepsis Screening Result: No Definite Risk - Focused Exam Vital Signs: Vital Signs Temp Pulse Resp BP Pulse Ox 11/11/20 03:43 99.4 F 93 18 123/55 L 94 L 11/10/20 23:52 99.7 F 90 20 102/63 93 L 11/10/20 20:00 100.1 F 89 20 115/64 95 - Problem List Review Problem List Initiated/Reviewed/Updated: Yes - My Orders Last 24 Hours: My Active Orders 11/10/20 Lunch Heart Healthy Diet [DIET] 11/10/20 13:13 Up With Assistance [RC] ASDIRECTED Vital Signs [RC] 00,04,08,12,16,20 Acetaminophen [TylenoL] 650 mg PO Q4H PRN Ondansetron [Zofran] 4 mg IVPUSH Q4H PRN Sodium Chloride 0.9% [Saline Flush] 10 ml FLUSH ASDIRECTED PRN Peripheral IV Insertion Adult [OM.PC] Routine Saline Lock Insert [OM.PC] Routine Resuscitation Status Routine 11/10/20 13:14 Antiembolic Devices [RC] 08,20 Sequential Compression Device [OM.PC] Per Unit Routine 11/10/20 13:15 Peripheral IV Care [RC] 08,20 Acetaminophen/HYDROcodone [[place] 325-5 MG] 1 tab PO Q4H PRN 11/10/20 13:16 CPAP Adult [RT BiPAP/CPAP] [RC] .PRN Consult to Case Management/Integrated Circuits Inspector [CONS] Routine OT Evaluation and Treatment [CONS] Routine PT Evaluation and Treatment [CONS] Routine 11/10/20 13:17 OCCULT BLOOD DIAGNOSTIC [OP] Routine 11/10/20 14:00 Morphine 1 mg IVPUSH Q4H PRN 11/10/20 15:47 Melatonin 6 mg PO BEDTIME PRN 11/10/20 16:00 Warfarin [Coumadin] 2.5 mg PO TuTh@1400 11/10/20 18:00 Iron Sucrose Complex [Venofer] 100 mg Sodium Chloride 0.9% [Normal Saline] 100 ml IV DAILY@1000 11/10/20 21:00 cilostazoL [Pletal] 100 mg PO BID traMADol [Ultram] 50 mg PO BID 11/11/20 06:00 Omeprazole 20 mg PO ACBREAKFAST 11/11/20 09:00 Ascorbic Acid [Vitamin C] 500 mg PO DAILY Aspirin [Halfprin] 81 mg PO DAILY Ezetimibe [Zetia] 10 mg PO DAILY Metoprolol Succinate [Toprol XL] 50 mg PO DAILY 11/11/20 14:00 Warfarin [Coumadin] 5 mg PO MoWeFr@1400 11/11/20 17:00 Bumetanide [Bumex] 2 mg PO BIDDIURETIC 11/12/20 05:00 INR,PT,PROTHROMBIN TIME [COAG] Routine 11/12/20 14:00 Warfarin [Coumadin] 5 mg PO SuSa@1400 - Plan Plan:: Status post fall with resultant left arm pain. As needed analgesia. PT eval. OT eval. Case management evaluation for possible placement Query tracheal mass. Outpatient follow-up with otolaryngology Chronic pain. Ultram 50 mg p.o. twice daily Atrial fibrillation. Toprol-XL 50 mg p.o. daily plus Coumadin p.o. per home dose and frequency Osteoarthritis Macular degeneration Severe pulmonary hypertension Degenerative disc disease History of DVT. Coumadin p.o. per home dose and frequency Obstructive sleep apnea. CPAP/BiPAP: Okay to use home device and/or pressure when sleeping for obstructive sleep apnea if the patient uses CPAP or BiPAP at home Peripheral vascular disease. Aspirin 81 mg p.o. daily plus Pletal 100 mg p.o. twice daily Constipation Iron deficiency anemia. Will monitor hemoglobin level intermittently. Fecal occult blood pending. Vitamin C 500 mg p.o. daily plus iron sucrose 100 mg IV daily Documented history of CHF however echocardiogram from August 01, 2020 was unremarkable with exception of severe pulmonary hypertension. Bumex 2 mg p.o. twice daily plus metoprolol 50 mg p.o. daily Coronary artery disease. Aspirin 81 mg p.o. daily plus metoprolol XL 50 mg p.o. daily GERD. Prilosec 20 mg p.o. daily Hyperlipidemia. Zetia 10 mg p.o. daily Hypertension. Bumex 2 mg p.o. twice daily plus Toprol-XL 50 mg p.o. daily Smoker. Patient will be counseled regarding smoking cessation Erectile dysfunction Diverticulosis Right adrenal adenoma. Outpatient monitoring with his primary care physician or provider Cholelithiasis, asymptomatic Spinal stenosis Osteopenia DVT prophylaxis. Coumadin p.o. per home dose and frequency Disposition: Patient medically stable for discharge however he may require placement given that he is unable to care for himself with his present injury as he lives by himself
[2020-11-11] MEDS: Aspirin 81 MG Tab.EC PO SCH (08:31)
[2020-11-11] MEDS: Ezetimibe 10 MG Tab PO SCH (08:31)
[2020-11-11] MEDS: Metoprolol Succinate 50 MG Tab.ER PO SCH (08:31)
[2020-11-11] MEDS: traMADol 50 MG Tab PO SCH ×2 (08:31→21:31)
[2020-11-11] MEDS: Ascorbic Acid 500 MG Tab PO SCH (08:33)
[2020-11-11] MEDS ORDERED: Metoprolol Succinate 25 MG Tab.ER PO SCH (09:00)
[2020-11-11] MEDS: Iron Sucrose Complex 100 MG in Sodium Chloride 0.9% 100 ML IV SCH (10:11)
[2020-11-11] MEDS: Lidocaine 5% 700 MG Patch TOP SCH (11:38)
[2020-11-11] MEDS: Warfarin 5 MG Tab PO SCH (14:17)
--- NOTE | 2020-11-11 15:16 | MR ---
PROCEDURE INFORMATION: Exam: MR Left Upper Extremity Joint Without Contrast; Shoulder Exam date and time: 11/11/2020 1:34 PM Age: 80 years old Clinical indication: Pain; Shoulder; Left TECHNIQUE: Imaging protocol: MR of the Left upper extremity without contrast. Exam focused on the shoulder. COMPARISON: CR Shoulder Comp Lt 11/09/2020 2:08 PM FINDINGS: Images severely degraded by motion. Images are degraded by metallic artifact. Bones and cartilage: Cortical irregularity of the greater tuberosity of the humerus. Acromioclavicular degenerative arthritis. Edema superior bony glenoid. Joint spaces: Moderate glenohumeral effusion with synovitis and debris. Glenoid labrum: Heterogeneous tear of the superior glenoid labrum. Supraspinatus tendon: Full-thickness tear supraspinatus tendon with retraction to the glenoid. Infraspinatus tendon: Full-thickness tear infraspinatus tendon with retraction to the glenoid. Subscapularis tendon: Diminutive subscapularis tendon consistent with partial tearing and tendinopathy. Teres minor tendon: Unremarkable. No evidence of tear. Tendon of biceps brachii: Heterogeneous appearance of intra-articular long head of the biceps tendon consistent with partial tearing. Glenohumeral ligaments: Unremarkable. Muscles: Edema of the muscles of the rotator cuff. Soft tissues: Unremarkable. IMPRESSION: 1. Full-thickness tears supraspinatus and infraspinatus tendons with tendon retraction and muscle atrophy and edema 2. Partial tearing subscapularis tendon 3. Tearing intrasubstance long head of the biceps tendon 4. Complex tearing superior glenoid labrum 5. Glenohumeral effusion with synovitis and debris
[2020-11-11] MEDS: Bumetanide 1 MG Tab PO SCH (17:11)
[2020-11-11] MEDS: Acetaminophen 325 MG Tab PO PRN (21:32)
[2020-11-12] MEDS: Omeprazole 20 MG Cap.CR PO SCH (05:36)
[2020-11-12] MEDS: Acetaminophen/HYDROcodone 325-5 MG Tab PO PRN ×3 (05:37→18:47)
--- NOTE | 2020-11-12 07:37 | PCM.PN ---
- General Info Date of Service: 11/12/20 Subjective Update: The patient complains of right knee pain. He also complains of right knee swelling. The patient states that he has pain in his left shoulder however it is being adequately controlled with as needed analgesia. Overnight, the patient denies fever, rigors, nausea, vomiting, cough, wheeze, abdominal pain, chest pain, dyspnea, or any other constitutional complaints. I explained to the patient his current medical condition and plan of care and I have answered all of his questions - Review of Systems General: Reports: No Symptoms HEENT: Reports: No Symptoms Pulmonary: Reports: No Symptoms Cardiovascular: Reports: No Symptoms Gastrointestinal: Reports: No Symptoms Skin: Reports: No Symptoms Neurological: Reports: No Symptoms Psychiatric: Reports: No Symptoms - Patient Data Vitals - Most Recent: Last Vital Signs Temp 98.7 F 11/12/20 04:00 Pulse 87 11/12/20 04:00 Resp 20 11/12/20 04:00 BP 130/53 L 11/12/20 04:00 Pulse Ox 96 11/12/20 04:00 Weight - Most Recent: 165 lb 14.4 oz I&O - Last 24 Hours: Intake & Output 11/11/20 11/12/20 11/12/20 22:59 06:59 14:59 Intake Total 300 Output Total 140 440 Balance -140 -140 Med Orders - Current: Current Medications Acetaminophen (Acetaminophen 325 Mg Tab) 650 mg PO Q4H PRN PRN Reason: Pain (Mild 1-3)/fever Last Admin: 11/11/20 21:32 Dose: 650 mg Documented by: Hydrocodone Bitart/Acetaminophen (Acetaminophen/Hydrocodone 325-5 Mg Tab) 1 tab PO Q4H PRN PRN Reason: Pain (moderate 4-6) Last Admin: 11/12/20 05:37 Dose: 1 tab Documented by: Ascorbic Acid (Ascorbic Acid 500 Mg Tab) 500 mg PO DAILY [facility] Last Admin: 11/11/20 08:33 Dose: 500 mg Documented by: Aspirin (Aspirin 81 Mg Tab.Ec) 81 mg PO DAILY [facility] Last Admin: 11/11/20 08:31 Dose: 81 mg Documented by: Bumetanide (Bumetanide 1 Mg Tab) 2 mg PO BIDDIURETIC [facility] Last Admin: 11/11/20 17:11 Dose: 2 mg Documented by: Ezetimibe (Ezetimibe 10 Mg Tab) 10 mg PO DAILY [facility] Last Admin: 11/11/20 08:31 Dose: 10 mg Documented by: Iron Sucrose 100 mg/ Sodium (Chloride) 105 mls @ 400 mls/hr IV DAILY@1000 [facility] Last Admin: 11/11/20 10:11 Dose: 400 mls/hr Documented by: Lidocaine (Lidocaine 5% 700 Mg Patch) 700 mg TOP DAILY@0900 [facility] Last Admin: 11/11/20 11:38 Dose: 700 mg Documented by: Melatonin (Melatonin 3 Mg Tab) 6 mg PO BEDTIME PRN PRN Reason: Insomnia Metoprolol Succinate (Metoprolol Succinate 50 Mg Tab.Er) 50 mg PO DAILY [facility] Last Admin: 11/11/20 08:31 Dose: 50 mg Documented by: Miscellaneous Information (Remove Lidocaine Patch) 1 ea TRDERM DAILY@2100 [facility] Last Admin: 11/11/20 21:35 Dose: 1 ea Documented by: Miscellaneous Information (Remove Nicotine Patch) 1 ea TRDERM DAILY [facility] Morphine Sulfate (Morphine 2 Mg/Ml Syringe) 1 mg IVPUSH Q4H PRN PRN Reason: Pain (severe 7-10) Last Admin: 11/10/20 14:28 Dose: 1 mg Documented by: Nicotine (Nicotine 7 Mg/24 Hr Patch) 7 mg TRDERM DAILY PRN PRN Reason: Smoking cessation Non-Formulary Medication (Cilostazol [Pletal]) 100 mg PO BID [facility] Omeprazole (Omeprazole 20 Mg Cap.Cr) 20 mg PO ACBREAKFAST [facility] Last Admin: 11/12/20 05:36 Dose: 20 mg Documented by: Ondansetron HCl (Ondansetron 4 Mg/2 Ml Sdv) 4 mg IVPUSH Q4H PRN PRN Reason: Nausea/Vomiting Senna/Docusate Sodium (Docusate Sodium/Sennosides 50-8.6 Mg Tab) 2 tab PO BID [facility] Last Admin: 11/11/20 21:32 Dose: 2 tab Documented by: Sodium Chloride (Sodium Chloride 0.9% 10 Ml Syringe) 10 ml FLUSH ASDIRECTED PRN PRN Reason: Keep Vein Open Tramadol HCl (Tramadol 50 Mg Tab) 50 mg PO BID [facility] Last Admin: 11/11/20 21:31 Dose: 50 mg Documented by: Warfarin Sodium (Warfarin 2.5 Mg Tab) 2.5 mg PO TuTh@1400 [facility] Last Admin: 11/10/20 17:39 Dose: 2.5 mg Documented by: Warfarin Sodium (Warfarin 5 Mg Tab) 5 mg PO MoWeFr@1400 [facility] Last Admin: 11/11/20 14:17 Dose: 5 mg Documented by: Warfarin Sodium (Warfarin 5 Mg Tab) 5 mg PO SuSa@1400 [facility] Discontinued Medications Ferrous Sulfate (Ferrous Sulfate 325 Mg Tab) 325 mg PO BIDMEALS [facility] Metoprolol Succinate (Metoprolol Succinate 25 Mg Tab.Er) 25 mg PO DAILY [facility] Morphine Sulfate (Morphine 2 Mg/Ml Syringe) 2 mg IVPUSH ONETIME ONE Stop: 11/10/20 11:53 Last Admin: 11/10/20 11:59 Dose: 2 mg Documented by: - Exam General: Alert, Oriented HEENT: Pupils Equal, Pupils Reactive, EOMI, Mucous Membr. Moist/[place] Neck: Supple Lungs: Clear to Auscultation, Normal Respiratory Effort Cardiovascular: Regular Rate, Regular Rhythm GI/Abdominal Exam: Normal Bowel Sounds, Soft, Non-Tender, No Organomegaly, No Distention, No Abnormal Bruit, No Mass, Pelvis Stable Extremities: Arm Pain, Leg Pain Skin: Warm, Dry, Intact Wound/Incisions: Healing Well Neurological: No New Focal Deficit Psy/Mental Status: Alert, Normal Affect, Normal Mood - Patient Data Result Diagrams: 11/11/20 06:20 11/10/20 12:11 Sepsis Event Note - Evaluation Sepsis Screening Result: No Definite Risk - Focused Exam Vital Signs: Vital Signs Temp Pulse Resp BP Pulse Ox 11/12/20 04:00 98.7 F 87 20 130/53 L 96 11/11/20 23:34 98.4 F 86 20 102/53 L 94 L - Problem List Review Problem List Initiated/Reviewed/Updated: Yes - My Orders Last 24 Hours: My Active Orders 11/11/20 09:00 Ascorbic Acid [Vitamin C] 500 mg PO DAILY Aspirin [Halfprin] 81 mg PO DAILY Ezetimibe [Zetia] 10 mg PO DAILY Metoprolol Succinate [Toprol XL] 50 mg PO DAILY 11/11/20 10:26 JUAN Hose [Antiembolic Hose] [OM.PC] Routine 11/11/20 10:30 Lidocaine 5% [Lidoderm 5%] 700 mg TOP DAILY@0900 11/11/20 10:33 Incentive Spirometry [RT Incentive Spirometry] [RC] Q1HWA 11/11/20 11:00 Nicotine [Habitrol] 7 mg TRDERM DAILY PRN 11/11/20 14:00 Warfarin [Coumadin] 5 mg PO MoWeFr@1400 11/11/20 17:00 Bumetanide [Bumex] 2 mg PO BIDDIURETIC 11/11/20 21:00 Docusate Sodium/Sennosides [Senna Plus] 2 tab PO BID Remove Patch 1 ea TRDERM DAILY@2100 11/12/20 06:50 INR,PT,PROTHROMBIN TIME [COAG] Routine 11/12/20 09:00 Remove Patch 1 ea TRDERM DAILY 11/12/20 14:00 Warfarin [Coumadin] 5 mg PO SuSa@1400 - Plan Plan:: Status post fall with resultant left rotator cuff tear. As needed analgesia. PT eval. OT eval. Case management evaluation for possible placement. Outpatient follow-up with orthopedic surgery upon discharge. Lidocaine 5% patch to be applied to affected area for 12 hours daily Query tracheal mass. Outpatient follow-up with otolaryngology Chronic pain. Ultram 50 mg p.o. twice daily Atrial fibrillation. Toprol-XL 50 mg p.o. daily plus Coumadin p.o. per home dose and frequency Osteoarthritis Macular degeneration Severe pulmonary hypertension Degenerative disc disease History of DVT. Coumadin p.o. per home dose and frequency Obstructive sleep apnea. CPAP/BiPAP: Okay to use home device and/or pressure when sleeping for obstructive sleep apnea if the patient uses CPAP or BiPAP at home Peripheral vascular disease. Aspirin 81 mg p.o. daily plus Pletal 100 mg p.o. twice daily Constipation. Docusate/senna: 2 tabs p.o. twice daily Iron deficiency anemia. Will monitor hemoglobin level intermittently. Fecal occult blood pending. Vitamin C 500 mg p.o. daily plus iron sucrose 100 mg IV daily Documented history of CHF however echocardiogram from August 01, 2020 was unremarkable with exception of severe pulmonary hypertension. Bumex 2 mg p.o. twice daily plus metoprolol 50 mg p.o. daily Coronary artery disease. Aspirin 81 mg p.o. daily plus metoprolol XL 50 mg p.o. daily GERD. Prilosec 20 mg p.o. daily Hyperlipidemia. Zetia 10 mg p.o. daily Hypertension. Bumex 2 mg p.o. twice daily plus Toprol-XL 50 mg p.o. daily Smoker. Patient will be counseled regarding smoking cessation Erectile dysfunction Diverticulosis Right adrenal adenoma. Outpatient monitoring with his primary care physician or provider Cholelithiasis, asymptomatic Spinal stenosis Osteopenia DVT prophylaxis. Coumadin p.o. per home dose and frequency Disposition: Patient medically stable for discharge however he may require placement given that he is unable to care for himself with his present injury as he lives by himself
[2020-11-12] MEDS: Aspirin 81 MG Tab.EC PO SCH (09:15)
[2020-11-12] MEDS: Lidocaine 5% 700 MG Patch TOP SCH (09:15)
[2020-11-12] MEDS: Bumetanide 1 MG Tab PO SCH ×2 (09:15→14:25)
[2020-11-12] MEDS: Ezetimibe 10 MG Tab PO SCH (09:17)
[2020-11-12] MEDS: Ascorbic Acid 500 MG Tab PO SCH (09:17)
[2020-11-12] MEDS: traMADol 50 MG Tab PO SCH ×2 (09:17→21:26)
[2020-11-12] MEDS: Metoprolol Succinate 50 MG Tab.ER PO SCH (09:17)
[2020-11-12] MEDS: Iron Sucrose Complex 100 MG in Sodium Chloride 0.9% 100 ML IV SCH (10:42)
--- NOTE | 2020-11-12 10:57 | CR ---
PROCEDURE INFORMATION: Exam: XR Right Knee Exam date and time: 11/12/2020 8:57 AM Age: 80 years old Clinical indication: Pain; Knee; Right; Prior surgery; Surgery date: 6+ months; Surgery type: Stent TECHNIQUE: Imaging protocol: XR Right knee. Views: 1 or 2 views. COMPARISON: CR Knee 3V Rt 07/27/2020 1:44 PM FINDINGS: Bones/joints: Chondrocalcinosis. Large joint space effusion. No fracture. Mild medial joint space narrowing. Soft tissues: Normal. Vasculature: Vascular calcifications. IMPRESSION: Mild medial arthropathy with joint space effusion.
[2020-11-12] MEDS: Warfarin 5 MG Tab PO SCH (14:25)
[2020-11-12] MEDS: CILOSTAZOL 100 MG PO SCH ×2 (14:26→21:29)
[2020-11-12] MEDS: Nicotine 7 MG/24 Hr Patch TRDERM PRN (17:11)
[2020-11-12] MEDS: Sodium Chloride 0.9% 10 ML Syringe FLUSH PRN (21:32)
[2020-11-12] MEDS: Acetaminophen 325 MG Tab PO PRN (23:46)
[2020-11-12] MEDS: Melatonin 3 MG Tab PO PRN (23:48)
[2020-11-13] MEDS: Omeprazole 20 MG Cap.CR PO SCH (06:19)
--- NOTE | 2020-11-13 07:33 | PCM.PN ---
- General Info Date of Service: 11/13/20 Subjective Update: The patient complains of feeling constipated. The patient complains of 3 out of 10 left arm/elbow pain. He states at rest he does not have pain of his right kn ee. Overnight he denies fever, rigors, nausea, vomiting, cough, wheeze, abdominal pain, chest pain, dyspnea, or any other constitutional complaints. He denies paresthesia/anesthesia of his left hand/arm. I explained to the patient his current medical condition and plan of care and I have answered all of his questions - Review of Systems General: Reports: No Symptoms HEENT: Reports: No Symptoms Pulmonary: Reports: No Symptoms Cardiovascular: Reports: No Symptoms Gastrointestinal: Reports: No Symptoms Genitourinary: Reports: No Symptoms Musculoskeletal: Reports: Arm Pain Skin: Reports: No Symptoms Neurological: Reports: No Symptoms Psychiatric: Reports: No Symptoms - Patient Data Vitals - Most Recent: Last Vital Signs Temp 99.3 F 11/13/20 05:49 Pulse 91 11/13/20 05:49 Resp 20 11/13/20 05:49 BP 104/58 L 11/13/20 05:49 Pulse Ox 94 L 11/13/20 05:49 Weight - Most Recent: 163 lb 12.8 oz I&O - Last 24 Hours: Intake & Output 11/12/20 11/13/20 11/13/20 22:59 06:59 14:59 Intake Total 500 200 Output Total 1950 300 Balance -1450 -100 Lab Results Last 24 Hours: Laboratory Results - last 24 hr 11/12/20 11/13/20 Range/Units 06:50 06:15 Hgb 11.6 L (14.0-18.0) g/dL PT 27.3 H (9.0-12.0) SEC INR 2.8 H (0.9-1.2) Med Orders - Current: Current Medications Acetaminophen (Acetaminophen 325 Mg Tab) 650 mg PO Q4H PRN PRN Reason: Pain (Mild 1-3)/fever Last Admin: 11/12/20 23:46 Dose: 650 mg Documented by: Hydrocodone Bitart/Acetaminophen (Acetaminophen/Hydrocodone 325-5 Mg Tab) 1 tab PO Q4H PRN PRN Reason: Pain (moderate 4-6) Last Admin: 11/12/20 18:47 Dose: 1 tab Documented by: Ascorbic Acid (Ascorbic Acid 500 Mg Tab) 500 mg PO DAILY [facility] Last Admin: 11/12/20 09:17 Dose: 500 mg Documented by: Aspirin (Aspirin 81 Mg Tab.Ec) 81 mg PO DAILY [facility] Last Admin: 11/12/20 09:15 Dose: 81 mg Documented by: Bumetanide (Bumetanide 1 Mg Tab) 2 mg PO BIDDIURETIC [facility] Last Admin: 11/12/20 14:25 Dose: 2 mg Documented by: Ezetimibe (Ezetimibe 10 Mg Tab) 10 mg PO DAILY [facility] Last Admin: 11/12/20 09:17 Dose: 10 mg Documented by: Iron Sucrose 100 mg/ Sodium (Chloride) 105 mls @ 400 mls/hr IV DAILY@1000 [facility] Last Admin: 11/12/20 10:42 Dose: 400 mls/hr Documented by: Lidocaine (Lidocaine 5% 700 Mg Patch) 700 mg TOP DAILY@0900 [facility] Last Admin: 11/12/20 09:15 Dose: 700 mg Documented by: Melatonin (Melatonin 3 Mg Tab) 6 mg PO BEDTIME PRN PRN Reason: Insomnia Last Admin: 11/12/20 23:48 Dose: 6 mg Documented by: Metoprolol Succinate (Metoprolol Succinate 50 Mg Tab.Er) 50 mg PO DAILY [facility] Last Admin: 11/12/20 09:17 Dose: 50 mg Documented by: Miscellaneous Information (Remove Lidocaine Patch) 1 ea TRDERM DAILY@2100 [facility] Last Admin: 11/12/20 21:39 Dose: 1 ea Documented by: Miscellaneous Information (Remove Nicotine Patch) 1 ea TRDERM DAILY [facility] Last Admin: 11/12/20 09:20 Dose: Not Given Documented by: Morphine Sulfate (Morphine 2 Mg/Ml Syringe) 1 mg IVPUSH Q4H PRN PRN Reason: Pain (severe 7-10) Last Admin: 11/10/20 14:28 Dose: 1 mg Documented by: Nicotine (Nicotine 7 Mg/24 Hr Patch) 7 mg TRDERM DAILY PRN PRN Reason: Smoking cessation Last Admin: 11/12/20 17:11 Dose: 7 mg Documented by: Omeprazole (Omeprazole 20 Mg Cap.Cr) 20 mg PO ACBREAKFAST [facility] Last Admin: 11/13/20 06:19 Dose: 20 mg Documented by: Ondansetron HCl (Ondansetron 4 Mg/2 Ml Sdv) 4 mg IVPUSH Q4H PRN PRN Reason: Nausea/Vomiting Cilostazol 100 Mg (Tab *Pt Own Med*) 0 each PO BID [facility] Last Admin: 11/12/20 21:29 Dose: 1 each Documented by: Senna/Docusate Sodium (Docusate Sodium/Sennosides 50-8.6 Mg Tab) 2 tab PO BID [facility] Last Admin: 11/12/20 21:25 Dose: 2 tab Documented by: Sodium Chloride (Sodium Chloride 0.9% 10 Ml Syringe) 10 ml FLUSH ASDIRECTED PRN PRN Reason: Keep Vein Open Last Admin: 11/12/20 21:32 Dose: 10 ml Documented by: Tramadol HCl (Tramadol 50 Mg Tab) 50 mg PO BID [facility] Last Admin: 11/12/20 21:26 Dose: 50 mg Documented by: Warfarin Sodium (Warfarin 2.5 Mg Tab) 2.5 mg PO TuTh@1400 [facility] Last Admin: 11/10/20 17:39 Dose: 2.5 mg Documented by: Warfarin Sodium (Warfarin 5 Mg Tab) 5 mg PO MoWeFr@1400 [facility] Last Admin: 11/11/20 14:17 Dose: 5 mg Documented by: Warfarin Sodium (Warfarin 5 Mg Tab) 5 mg PO SuSa@1400 [facility] Last Admin: 11/12/20 14:25 Dose: 5 mg Documented by: Discontinued Medications Ferrous Sulfate (Ferrous Sulfate 325 Mg Tab) 325 mg PO BIDMEALS [facility] Metoprolol Succinate (Metoprolol Succinate 25 Mg Tab.Er) 25 mg PO DAILY [facility] Morphine Sulfate (Morphine 2 Mg/Ml Syringe) 2 mg IVPUSH ONETIME ONE Stop: 11/10/20 11:53 Last Admin: 11/10/20 11:59 Dose: 2 mg Documented by: - Exam General: Alert, Oriented HEENT: Pupils Equal, Pupils Reactive, EOMI, Mucous Membr. Moist/[place] Neck: Supple Lungs: Clear to Auscultation, Normal Respiratory Effort Cardiovascular: Regular Rate, Regular Rhythm GI/Abdominal Exam: Normal Bowel Sounds, Soft, Non-Tender, No Organomegaly, No Distention, No Abnormal Bruit, No Mass, Pelvis Stable Extremities: Joint Swelling, Arm Pain Skin: Warm, Dry, Intact Wound/Incisions: Healing Well Neurological: No New Focal Deficit Psy/Mental Status: Alert, Normal Affect, Normal Mood - Patient Data Lab Results Last 24 hrs: Laboratory Results - last 24 hr 11/12/20 11/13/20 Range/Units 06:50 06:15 Hgb 11.6 L (14.0-18.0) g/dL PT 27.3 H (9.0-12.0) SEC INR 2.8 H (0.9-1.2) Result Diagrams: 11/13/20 06:15 11/10/20 12:11 Sepsis Event Note - Evaluation Sepsis Screening Result: No Definite Risk - Focused Exam Vital Signs: Vital Signs Temp Pulse Resp BP Pulse Ox 11/13/20 05:49 99.3 F 91 20 104/58 L 94 L 11/13/20 01:00 100.2 F 11/12/20 23:15 100.4 F 94 20 113/56 L 94 L 11/12/20 19:54 99.9 F 92 20 121/57 L 95 - Problem List Review Problem List Initiated/Reviewed/Updated: Yes - My Orders Last 24 Hours: My Active Orders 11/12/20 09:00 Remove Patch 1 ea TRDERM DAILY 11/12/20 14:00 Patient's Own Medication [Ptom] 0 each PO BID Warfarin [Coumadin] 5 mg PO SuSa@1400 11/12/20 Dinner Regular Diet [DIET] 11/13/20 08:00 polyethylene glycoL 3350 [MiraLAX] 17 gm PO DAILY 11/14/20 05:00 INR,PT,PROTHROMBIN TIME [COAG] Routine - Plan Plan:: Status post fall with resultant left rotator cuff tear. As needed analgesia. PT eval. OT eval. Case management evaluation for possible placement. Outpatient follow-up with orthopedic surgery upon discharge. Lidocaine 5% patch to be applied to affected area for 12 hours daily Query tracheal mass. Outpatient follow-up with otolaryngology Chronic pain. Ultram 50 mg p.o. twice daily Atrial fibrillation. Toprol-XL 50 mg p.o. daily plus Coumadin p.o. per home dose and frequency Osteoarthritis Macular degeneration Severe pulmonary hypertension Degenerative disc disease History of DVT. Coumadin p.o. per home dose and frequency Obstructive sleep apnea. CPAP/BiPAP: Okay to use home device and/or pressure when sleeping for obstructive sleep apnea if the patient uses CPAP or BiPAP at home Peripheral vascular disease. Aspirin 81 mg p.o. daily plus Pletal 100 mg p.o. twice daily Constipation. Docusate/senna: 2 tabs p.o. twice daily plus MiraLAX 17 g p.o. daily Iron deficiency anemia. Will monitor hemoglobin level intermittently. Fecal o ccult blood pending. Vitamin C 500 mg p.o. daily plus iron sucrose 100 mg IV daily Documented history of CHF however echocardiogram from August 01, 2020 was unremarkable with exception of severe pulmonary hypertension. Bumex 2 mg p.o. twice daily plus metoprolol 50 mg p.o. daily Coronary artery disease. Aspirin 81 mg p.o. daily plus metoprolol XL 50 mg p.o. daily GERD. Prilosec 20 mg p.o. daily Hyperlipidemia. Zetia 10 mg p.o. daily Hypertension. Bumex 2 mg p.o. twice daily plus Toprol-XL 50 mg p.o. daily Smoker. Patient will be counseled regarding smoking cessation Erectile dysfunction Diverticulosis Right adrenal adenoma. Outpatient monitoring with his primary care physician or provider Cholelithiasis, asymptomatic Spinal stenosis Osteopenia DVT prophylaxis. Coumadin p.o. per home dose and frequency Disposition: Patient medically stable for discharge however he may require placement given that he is unable to care for himself with his present injury as he lives by himself
[2020-11-13] MEDS: Bumetanide 1 MG Tab PO SCH ×2 (09:21→13:47)
[2020-11-13] MEDS: traMADol 50 MG Tab PO SCH ×2 (09:21→21:01)
[2020-11-13] MEDS: Metoprolol Succinate 50 MG Tab.ER PO SCH (09:22)
[2020-11-13] MEDS: Ascorbic Acid 500 MG Tab PO SCH (09:22)
[2020-11-13] MEDS: Ezetimibe 10 MG Tab PO SCH (09:22)
[2020-11-13] MEDS: Aspirin 81 MG Tab.EC PO SCH (09:22)
[2020-11-13] MEDS: Polyethylene Glycol 3350 Powder 17 GM Packet PO SCH ×2 (09:23→10:25)
[2020-11-13] MEDS: Lidocaine 5% 700 MG Patch TOP SCH (09:23)
[2020-11-13] MEDS: CILOSTAZOL 100 MG PO SCH ×2 (09:26→21:03)
[2020-11-13] MEDS: Iron Sucrose Complex 100 MG in Sodium Chloride 0.9% 100 ML IV SCH (10:25)
[2020-11-13] MEDS: Warfarin 5 MG Tab PO SCH (13:48)
[2020-11-13] MEDS: Nicotine 7 MG/24 Hr Patch TRDERM PRN (17:48)
[2020-11-14] MEDS: Omeprazole 20 MG Cap.CR PO SCH (05:34)
--- NOTE | 2020-11-14 07:52 | PCM.PN ---
- General Info Date of Service: 11/14/20 Subjective Update: The patient is complaining left arm/left elbow pain as well as right knee pain. He states that he has not had a bowel movement in approximately 5 days. Overnig ht, he denies fever, rigors, nausea, vomiting, cough, wheeze, abdominal pain, chest pain, dyspnea, or any other constitutional complaints. I explained to the patient his current medical condition and plan of care and I have answered all of his questions Functional Status: Reports: Pain Controlled - Review of Systems General: Reports: No Symptoms HEENT: Reports: No Symptoms Pulmonary: Reports: No Symptoms Cardiovascular: Reports: No Symptoms Gastrointestinal: Reports: No Symptoms Genitourinary: Reports: No Symptoms Musculoskeletal: Reports: Arm Pain, Leg Pain Skin: Reports: No Symptoms Neurological: Reports: No Symptoms Psychiatric: Reports: No Symptoms - Patient Data Vitals - Most Recent: Last Vital Signs Temp 99.7 F 11/14/20 07:32 Pulse 93 11/14/20 07:32 Resp 16 11/14/20 07:32 BP 105/57 L 11/14/20 07:32 Pulse Ox 96 11/14/20 07:32 Weight - Most Recent: 164 lb I&O - Last 24 Hours: Intake & Output 11/13/20 11/14/20 11/14/20 22:59 06:59 14:59 Intake Total 700 240 Output Total 400 500 Balance 300 -260 Lab Results Last 24 Hours: Laboratory Results - last 24 hr 11/14/20 Range/Units 06:30 PT 34.1 H (9.0-12.0) SEC INR 3.5 H (0.9-1.2) Med Orders - Current: Current Medications Acetaminophen (Acetaminophen 325 Mg Tab) 650 mg PO Q4H PRN PRN Reason: Pain (Mild 1-3)/fever Last Admin: 11/12/20 23:46 Dose: 650 mg Documented by: Hydrocodone Bitart/Acetaminophen (Acetaminophen/Hydrocodone 325-5 Mg Tab) 1 tab PO Q4H PRN PRN Reason: Pain (moderate 4-6) Last Admin: 11/12/20 18:47 Dose: 1 tab Documented by: Ascorbic Acid (Ascorbic Acid 500 Mg Tab) 500 mg PO DAILY [facility] Last Admin: 11/13/20 09:22 Dose: 500 mg Documented by: Aspirin (Aspirin 81 Mg Tab.Ec) 81 mg PO DAILY [facility] Last Admin: 11/13/20 09:22 Dose: 81 mg Documented by: Bumetanide (Bumetanide 1 Mg Tab) 2 mg PO BIDDIURETIC [facility] Last Admin: 11/13/20 13:47 Dose: 2 mg Documented by: Ezetimibe (Ezetimibe 10 Mg Tab) 10 mg PO DAILY [facility] Last Admin: 11/13/20 09:22 Dose: 10 mg Documented by: Iron Sucrose 100 mg/ Sodium (Chloride) 105 mls @ 400 mls/hr IV DAILY@1000 [facility] Last Admin: 11/13/20 10:25 Dose: 400 mls/hr Documented by: Lidocaine (Lidocaine 5% 700 Mg Patch) 700 mg TOP DAILY@0900 [facility] Last Admin: 11/13/20 09:23 Dose: 700 mg Documented by: Melatonin (Melatonin 3 Mg Tab) 6 mg PO BEDTIME PRN PRN Reason: Insomnia Last Admin: 11/12/20 23:48 Dose: 6 mg Documented by: Metoprolol Succinate (Metoprolol Succinate 50 Mg Tab.Er) 50 mg PO DAILY [facility] Last Admin: 11/13/20 09:22 Dose: 50 mg Documented by: Miscellaneous Information (Remove Lidocaine Patch) 1 ea TRDERM DAILY@2100 [facility] Last Admin: 11/13/20 21:03 Dose: 1 ea Documented by: Miscellaneous Information (Remove Nicotine Patch) 1 ea TRDERM DAILY [facility] Last Admin: 11/13/20 09:28 Dose: Not Given Documented by: Morphine Sulfate (Morphine 2 Mg/Ml Syringe) 1 mg IVPUSH Q4H PRN PRN Reason: Pain (severe 7-10) Last Admin: 11/10/20 14:28 Dose: 1 mg Documented by: Nicotine (Nicotine 7 Mg/24 Hr Patch) 7 mg TRDERM DAILY PRN PRN Reason: Smoking cessation Last Admin: 11/13/20 17:48 Dose: 7 mg Documented by: Omeprazole (Omeprazole 20 Mg Cap.Cr) 20 mg PO ACBREAKFAST [facility] Last Admin: 11/14/20 05:34 Dose: 20 mg Documented by: Ondansetron HCl (Ondansetron 4 Mg/2 Ml Sdv) 4 mg IVPUSH Q4H PRN PRN Reason: Nausea/Vomiting Cilostazol 100 Mg (Tab *Pt Own Med*) 0 each PO BID [facility] Last Admin: 11/13/20 21:03 Dose: 1 each Documented by: Polyethylene Glycol (Polyethylene Glycol 3350 Powder 17 Gm Packet) 17 gm PO DANTE LY [facility] Last Admin: 11/13/20 10:25 Dose: 17 gm Documented by: Senna/Docusate Sodium (Docusate Sodium/Sennosides 50-8.6 Mg Tab) 2 tab PO BID [facility] Last Admin: 11/13/20 21:05 Dose: 2 tab Documented by: Sodium Chloride (Sodium Chloride 0.9% 10 Ml Syringe) 10 ml FLUSH ASDIRECTED PRN PRN Reason: Keep Vein Open Last Admin: 11/12/20 21:32 Dose: 10 ml Documented by: Tramadol HCl (Tramadol 50 Mg Tab) 50 mg PO BID [facility] Last Admin: 11/13/20 21:01 Dose: 50 mg Documented by: Warfarin Sodium (Warfarin 2.5 Mg Tab) 2.5 mg PO TuTh@1400 [facility] Last Admin: 11/10/20 17:39 Dose: 2.5 mg Documented by: Warfarin Sodium (Warfarin 5 Mg Tab) 5 mg PO MoWeFr@1400 [facility] Last Admin: 11/11/20 14:17 Dose: 5 mg Documented by: Warfarin Sodium (Warfarin 5 Mg Tab) 5 mg PO SuSa@1400 [facility] Last Admin: 11/13/20 13:48 Dose: 5 mg Documented by: Discontinued Medications Ferrous Sulfate (Ferrous Sulfate 325 Mg Tab) 325 mg PO BIDMEALS [facility] Metoprolol Succinate (Metoprolol Succinate 25 Mg Tab.Er) 25 mg PO DAILY [facility] Morphine Sulfate (Morphine 2 Mg/Ml Syringe) 2 mg IVPUSH ONETIME ONE Stop: 11/10/20 11:53 Last Admin: 11/10/20 11:59 Dose: 2 mg Documented by: - Exam General: Alert, Oriented HEENT: Pupils Equal, Pupils Reactive, EOMI, Mucous Membr. Moist/[place] Neck: Supple Lungs: Clear to Auscultation, Normal Respiratory Effort Cardiovascular: Regular Rate, Regular Rhythm GI/Abdominal Exam: Normal Bowel Sounds, Soft, Non-Tender, No Organomegaly, No Distention, No Abnormal Bruit, No Mass, Pelvis Stable Back Exam: Normal Inspection, Full Range of Motion Extremities: Arm Pain, Leg Pain Skin: Warm, Dry, Intact Wound/Incisions: Healing Well Neurological: No New Focal Deficit Psy/Mental Status: Alert, Normal Affect, Normal Mood - Patient Data Lab Results Last 24 hrs: Laboratory Results - last 24 hr 11/14/20 Range/Units 06:30 PT 34.1 H (9.0-12.0) SEC INR 3.5 H (0.9-1.2) Result Diagrams: 11/13/20 06:15 11/10/20 12:11 Sepsis Event Note - Evaluation Sepsis Screening Result: No Definite Risk - Focused Exam Vital Signs: Vital Signs Temp Pulse Resp BP BP Pulse Ox 11/14/20 07:32 99.7 F 93 16 105/57 L 96 11/14/20 04:00 98.8 F 94 20 115/61 94 L - Problem List Review Problem List Initiated/Reviewed/Updated: Yes - My Orders Last 24 Hours: My Active Orders 11/13/20 08:00 polyethylene glycoL 3350 [MiraLAX] 17 gm PO DAILY 11/14/20 07:47 Communication Order [RC] 11/15/20 05:00 INR,PT,PROTHROMBIN TIME [COAG] Routine - Plan Plan:: Status post fall with resultant left rotator cuff tear. As needed analgesia. PT eval. OT eval. Case management evaluation for possible placement. Outpatient follow-up with orthopedic surgery upon discharge. Lidocaine 5% patch to be applied to affected area for 12 hours daily Query tracheal mass. Outpatient follow-up with otolaryngology Chronic pain. Ultram 50 mg p.o. twice daily Atrial fibrillation. Toprol-XL 50 mg p.o. daily plus Coumadin p.o. per home dose and frequency Osteoarthritis Macular degeneration Severe pulmonary hypertension Degenerative disc disease History of DVT. Coumadin p.o. per home dose and frequency Obstructive sleep apnea. CPAP/BiPAP: Okay to use home device and/or pressure when sleeping for obstructive sleep apnea if the patient uses CPAP or BiPAP at home Peripheral vascular disease. Aspirin 81 mg p.o. daily plus Pletal 100 mg p.o. twice daily Constipation. Docusate/senna: 2 tabs p.o. twice daily plus MiraLAX 17 g p.o. daily plus milk of magnesia 30 mL p.o. twice daily Iron deficiency anemia. Will monitor hemoglobin level intermittently. Fecal occult blood pending. Vitamin C 500 mg p.o. daily plus iron sucrose 100 mg IV daily Documented history of CHF however echocardiogram from August 01, 2020 was unremarkable with exception of severe pulmonary hypertension. Bumex 2 mg p.o. twice daily plus metoprolol 50 mg p.o. daily Coronary artery disease. Aspirin 81 mg p.o. daily plus metoprolol XL 50 mg p.o. daily GERD. Prilosec 20 mg p.o. daily Hyperlipidemia. Zetia 10 mg p.o. daily Hypertension. Bumex 2 mg p.o. twice daily plus Toprol-XL 50 mg p.o. daily Smoker. Patient will be counseled regarding smoking cessation Erectile dysfunction Diverticulosis Right adrenal adenoma. Outpatient monitoring with his primary care physician or provider Cholelithiasis, asymptomatic Spinal stenosis Osteopenia DVT prophylaxis. Coumadin p.o. per home dose and frequency Disposition: Patient medically stable for discharge however he may require placement given that he is unable to care for himself with his present injury as he lives by himself
[2020-11-14] MEDS ORDERED: Bisacodyl 10 MG Supp RECTAL ONE (07:53)
[2020-11-14] MEDS: CILOSTAZOL 100 MG PO SCH ×2 (08:29→20:05)
[2020-11-14] MEDS: Lidocaine 5% 700 MG Patch TOP SCH (08:30)
[2020-11-14] MEDS: Metoprolol Succinate 50 MG Tab.ER PO SCH (08:31)
[2020-11-14] MEDS: Polyethylene Glycol 3350 Powder 17 GM Packet PO SCH (08:31)
[2020-11-14] MEDS: Bumetanide 1 MG Tab PO SCH ×2 (08:31→13:05)
[2020-11-14] MEDS: Ascorbic Acid 500 MG Tab PO SCH (08:31)
[2020-11-14] MEDS: Aspirin 81 MG Tab.EC PO SCH (08:31)
[2020-11-14] MEDS: traMADol 50 MG Tab PO SCH ×2 (08:32→20:07)
[2020-11-14] MEDS: Ezetimibe 10 MG Tab PO SCH (08:33)
[2020-11-14] MEDS: Magnesium Hydroxide 400 MG/5 ML Susp 30 ML Cup PO SCH ×2 (08:33→20:04)
[2020-11-14] MEDS: Iron Sucrose Complex 100 MG in Sodium Chloride 0.9% 100 ML IV SCH (10:14)
[2020-11-14] MEDS ORDERED: Lidocaine 5% 700 MG Patch TOP ONE (14:30)
[2020-11-14] MEDS: Acetaminophen/HYDROcodone 325-5 MG Tab PO PRN (14:44)
[2020-11-15] MEDS: Omeprazole 20 MG Cap.CR PO SCH (06:02)
--- NOTE | 2020-11-15 07:40 | PCM.PN ---
- General Info Date of Service: 11/15/20 Subjective Update: The patient complains of 7 out of 10 left arm/shoulder pain as well as a 7 out of 10 right knee pain. He indicates when he does receive as needed analgesia that the pain medication is covering his pain well and it is lasting long enough. Overnight he denies fever, rigors, nausea, vomiting, cough, wheeze, abdominal pain, chest pain, dyspnea. He feels as though the edema in his right knee has decreased. I explained the patient his current medical condition and plan of care and I have answered all his questions Functional Status: Reports: Pain Controlled - Review of Systems General: Reports: No Symptoms HEENT: Reports: No Symptoms Pulmonary: Reports: No Symptoms Cardiovascular: Reports: No Symptoms Gastrointestinal: Reports: No Symptoms Genitourinary: Reports: No Symptoms Musculoskeletal: Reports: Arm Pain, Leg Pain Skin: Reports: No Symptoms Neurological: Reports: No Symptoms Psychiatric: Reports: No Symptoms - Patient Data Vitals - Most Recent: Last Vital Signs Temp 99.5 F 11/15/20 04:00 Pulse 87 11/15/20 04:00 Resp 18 11/15/20 04:00 BP 118/53 L 11/15/20 04:00 Pulse Ox 93 L 11/15/20 04:00 Weight - Most Recent: 164 lb 12.8 oz I&O - Last 24 Hours: Intake & Output 11/14/20 11/15/20 11/15/20 22:59 06:59 14:59 Intake Total 250 350 Output Total 300 300 Balance -50 50 Lab Results Last 24 Hours: Laboratory Results - last 24 hr 11/15/20 Range/Units 06:05 PT 30.5 H (9.0-12.0) SEC INR 3.1 H (0.9-1.2) Db Results Last 24 Hours: Microbiology 11/14/20 10:10 Stool Occult Blood (DB) - Final Stool / Feces Med Orders - Current: Current Medications Acetaminophen (Acetaminophen 325 Mg Tab) 650 mg PO Q4H PRN PRN Reason: Pain (Mild 1-3)/fever Last Admin: 11/12/20 23:46 Dose: 650 mg Documented by: Hydrocodone Bitart/Acetaminophen (Acetaminophen/Hydrocodone 325-5 Mg Tab) 1 tab PO Q4H PRN PRN Reason: Pain (moderate 4-6) Last Admin: 11/14/20 14:44 Dose: 1 tab Documented by: Ascorbic Acid (Ascorbic Acid 500 Mg Tab) 500 mg PO DAILY [facility] Last Admin: 11/14/20 08:31 Dose: 500 mg Documented by: Aspirin (Aspirin 81 Mg Tab.Ec) 81 mg PO DAILY [facility] Last Admin: 11/14/20 08:31 Dose: 81 mg Documented by: Bumetanide (Bumetanide 1 Mg Tab) 2 mg PO BIDDIURETIC [facility] Last Admin: 11/14/20 13:05 Dose: 2 mg Documented by: Ezetimibe (Ezetimibe 10 Mg Tab) 10 mg PO DAILY [facility] Last Admin: 11/14/20 08:33 Dose: 10 mg Documented by: Lidocaine (Lidocaine 5% 700 Mg Patch) 1,400 mg TOP DAILY@0900 [facility] Magnesium Hydroxide (Magnesium Hydroxide 400 Mg/5 Ml Susp 30 Ml Cup) 30 ml PO BID [facility] Last Admin: 11/14/20 20:04 Dose: 30 ml Documented by: Melatonin (Melatonin 3 Mg Tab) 6 mg PO BEDTIME PRN PRN Reason: Insomnia Last Admin: 11/12/20 23:48 Dose: 6 mg Documented by: Metoprolol Succinate (Metoprolol Succinate 50 Mg Tab.Er) 50 mg PO DAILY [facility] Last Admin: 11/14/20 08:31 Dose: 50 mg Documented by: Miscellaneous Information (Remove Lidocaine Patch) 1 ea TRDERM DAILY@2100 [facility] Last Admin: 11/14/20 20:06 Dose: 1 ea Documented by: Miscellaneous Information (Remove Nicotine Patch) 1 ea TRDERM DAILY [facility] Last Admin: 11/14/20 08:39 Dose: Not Given Documented by: Morphine Sulfate (Morphine 2 Mg/Ml Syringe) 1 mg IVPUSH Q4H PRN PRN Reason: Pain (severe 7-10) Last Admin: 11/10/20 14:28 Dose: 1 mg Documented by: Nicotine (Nicotine 7 Mg/24 Hr Patch) 7 mg TRDERM DAILY PRN PRN Reason: Smoking cessation Last Admin: 11/13/20 17:48 Dose: 7 mg Documented by: Omeprazole (Omeprazole 20 Mg Cap.Cr) 20 mg PO ACBREAKFAST [facility] Last Admin: 11/15/20 06:02 Dose: 20 mg Documented by: Ondansetron HCl (Ondansetron 4 Mg/2 Ml Sdv) 4 mg IVPUSH Q4H PRN PRN Reason: Nausea/Vomiting Cilostazol 100 Mg (Tab *Pt Own Med*) 0 each PO BID [facility] Last Admin: 11/14/20 20:05 Dose: 1 each Documented by: Polyethylene Glycol (Polyethylene Glycol 3350 Powder 17 Gm Packet) 17 gm PO DAILY [facility] Last Admin: 11/14/20 08:31 Dose: 17 gm Documented by: Senna/Docusate Sodium (Docusate Sodium/Sennosides 50-8.6 Mg Tab) 2 tab PO BID [facility] Last Admin: 11/14/20 20:07 Dose: 2 tab Documented by: Sodium Chloride (Sodium Chloride 0.9% 10 Ml Syringe) 10 ml FLUSH ASDIRECTED PRN PRN Reason: Keep Vein Open Last Admin: 11/12/20 21:32 Dose: 10 ml Documented by: Tramadol HCl (Tramadol 50 Mg Tab) 50 mg PO BID [facility] Last Admin: 11/14/20 20:07 Dose: 50 mg Documented by: Warfarin Sodium (Warfarin 2.5 Mg Tab) 2.5 mg PO TuTh@1400 [facility] Last Admin: 11/10/20 17:39 Dose: 2.5 mg Documented by: Warfarin Sodium (Warfarin 5 Mg Tab) 5 mg PO MoWeFr@1400 [facility] Last Admin: 11/11/20 14:17 Dose: 5 mg Documented by: Warfarin Sodium (Warfarin 5 Mg Tab) 5 mg PO SuSa@1400 [facility] Last Admin: 11/13/20 13:48 Dose: 5 mg Documented by: Discontinued Medications Bisacodyl (Bisacodyl 10 Mg Supp) 10 mg RECTAL ONETIME ONE Stop: 11/14/20 07:54 Last Admin: 11/14/20 08:32 Dose: 10 mg Documented by: Ferrous Sulfate (Ferrous Sulfate 325 Mg Tab) 325 mg PO BIDMEALS [facility] Iron Sucrose 100 mg/ Sodium (Chloride) 105 mls @ 400 mls/hr IV DAILY@1000 [facility] Last Admin: 11/14/20 10:14 Dose: 400 mls/hr Documented by: Lidocaine (Lidocaine 5% 700 Mg Patch) 700 mg TOP DAILY@0900 [facility] Last Admin: 11/14/20 08:30 Dose: 700 mg Documented by: Lidocaine (Lidocaine 5% 700 Mg Patch) 700 mg TOP ONETIME ONE Stop: 11/14/20 14:31 Last Admin: 11/14/20 14:43 Dose: 700 mg Documented by: Metoprolol Succinate (Metoprolol Succinate 25 Mg Tab.Er) 25 mg PO DAILY [facility] Morphine Sulfate (Morphine 2 Mg/Ml Syringe) 2 mg IVPUSH ONETIME ONE Stop: 11/10/20 11:53 Last Admin: 11/10/20 11:59 Dose: 2 mg Documented by: - Exam General: Alert, Oriented HEENT: Pupils Equal, Pupils Reactive, EOMI, Mucous Membr. Moist/[place] Neck: Supple Lungs: Clear to Auscultation, Normal Respiratory Effort Cardiovascular: Regular Rate, Irregular Rhythm. No: Regular Rhythm GI/Abdominal Exam: Normal Bowel Sounds, Soft, Non-Tender, No Organomegaly, No Distention, No Abnormal Bruit, No Mass, Pelvis Stable Back Exam: Normal Inspection, Full Range of Motion Extremities: Arm Pain, Leg Pain Skin: Warm, Dry, Intact Wound/Incisions: Healing Well Neurological: No New Focal Deficit Psy/Mental Status: Alert, Normal Affect, Normal Mood - Patient Data Lab Results Last 24 hrs: Laboratory Results - last 24 hr 11/15/20 Range/Units 06:05 PT 30.5 H (9.0-12.0) SEC INR 3.1 H (0.9-1.2) Result Diagrams: 11/13/20 06:15 11/10/20 12:11 Db Results Last 24 hrs: Microbiology 11/14/20 10:10 Stool Occult Blood (DB) - Final Stool / Feces Sepsis Event Note - Evaluation Sepsis Screening Result: No Definite Risk - Focused Exam Vital Signs: Vital Signs Temp Pulse Resp BP BP Pulse Ox 11/15/20 04:00 99.5 F 87 18 118/53 L 93 L 11/15/20 00:52 98.8 F 90 20 107/47 L 95 11/14/20 19:43 98.5 F 89 18 118/54 L 97 - Problem List Review Problem List Initiated/Reviewed/Updated: Yes - My Orders Last 24 Hours: My Active Orders 11/14/20 09:00 Magnesium Hydroxide [Milk of Magnesia] 30 ml PO BID 11/15/20 09:00 Lidocaine 5% [Lidoderm 5%] 1,400 mg TOP DAILY@0900 11/16/20 05:00 INR,PT,PROTHROMBIN TIME [[facility]] Routine - Plan Plan:: Status post fall with resultant left rotator cuff tear. As needed analgesia. PT eval. OT eval. Case management evaluation for possible placement. Outpatient follow-up with orthopedic surgery upon discharge. Lidocaine 5% patch to be applied to affected area for 12 hours daily Query tracheal mass. Outpatient follow-up with otolaryngology Chronic pain. Ultram 50 mg p.o. twice daily Atrial fibrillation. Toprol-XL 50 mg p.o. daily plus Coumadin p.o. per home dose and frequency Osteoarthritis Macular degeneration Severe pulmonary hypertension Degenerative disc disease History of DVT. Coumadin p.o. per home dose and frequency Obstructive sleep apnea. CPAP/BiPAP: Okay to use home device and/or pressure when sleeping for obstructive sleep apnea if the patient uses CPAP or BiPAP at home Peripheral vascular disease. Aspirin 81 mg p.o. daily plus Pletal 100 mg p.o. twice daily Constipation. Docusate/senna: 2 tabs p.o. twice daily plus MiraLAX 17 g p.o. daily plus milk of magnesia 30 mL p.o. twice daily Iron deficiency anemia. Will monitor hemoglobin level intermittently. Fecal occult blood positive for which patient will need to follow-up with gastroenterology upon discharge. Vitamin C 500 mg p.o. daily plus ferrous sulfate 305 mg p.o. twice daily Documented history of CHF however echocardiogram from August 01, 2020 was unremarkable with exception of severe pulmonary hypertension. Bumex 2 mg p.o. twice daily plus metoprolol 50 mg p.o. daily Coronary artery disease. Aspirin 81 mg p.o. daily plus metoprolol XL 50 mg p.o. daily GERD. Prilosec 20 mg p.o. daily Hyperlipidemia. Zetia 10 mg p.o. daily Hypertension. Bumex 2 mg p.o. twice daily plus Toprol-XL 50 mg p.o. daily Smoker. Patient will be counseled regarding smoking cessation Erectile dysfunction Diverticulosis Right adrenal adenoma. Outpatient monitoring with his primary care physician or provider Cholelithiasis, asymptomatic Spinal stenosis Osteopenia DVT prophylaxis. Coumadin p.o. per home dose and frequency Disposition: Patient medically stable for discharge however he may require placement given that he is unable to care for himself with his present injury as he lives by himself
[2020-11-15] MEDS: Ferrous Sulfate 325 MG Tab PO SCH ×2 (09:08→18:33)
[2020-11-15] MEDS: Bumetanide 1 MG Tab PO SCH ×2 (09:08→13:26)
[2020-11-15] MEDS: Aspirin 81 MG Tab.EC PO SCH (09:08)
[2020-11-15] MEDS: Magnesium Hydroxide 400 MG/5 ML Susp 30 ML Cup PO SCH ×2 (09:09→20:50)
[2020-11-15] MEDS: traMADol 50 MG Tab PO SCH ×2 (09:10→20:51)
[2020-11-15] MEDS: Ezetimibe 10 MG Tab PO SCH (09:11)
[2020-11-15] MEDS: Polyethylene Glycol 3350 Powder 17 GM Packet PO SCH (09:11)
[2020-11-15] MEDS: Metoprolol Succinate 50 MG Tab.ER PO SCH (09:11)
[2020-11-15] MEDS: Ascorbic Acid 500 MG Tab PO SCH (09:11)
[2020-11-15] MEDS: CILOSTAZOL 100 MG PO SCH ×2 (09:12→20:52)
[2020-11-15] MEDS: Lidocaine 5% 700 MG Patch TOP SCH (09:19)
[2020-11-16] MEDS: Omeprazole 20 MG Cap.CR PO SCH (06:43)
--- NOTE | 2020-11-16 07:46 | PCM.DCSUM1 ---
Discharge Summary - Hospital Course Free Text/Narrative:: START OF DOCTOR DEVENDRAMIHanh DISCHARGE SUMMARY Date of Admission: November 10, 2020 Date of Discharge: 7:41 AM on November 17 1999.1 Primary Diagnosis: Status post fall with resultant left rotator cuff tear and right knee sprain Secondary Diagnosis: Query tracheal mass Chronic pain Atrial fibrillation Osteoarthritis Macular degeneration Severe pulmonary hypertension Degenerative disc disease History of DVT Obstructive sleep apnea Peripheral vascular disease Constipation Iron deficiency anemia Documented history of CHF however echocardiogram from August 01, 2020 was unremarkable with the exception of severe pulmonary hypertension Coronary artery disease GERD Hyperlipidemia Hypertension Smoker Erectile dysfunction Diverticulosis Right adrenal adenoma Cholelithiasis, asymptomatic Spinal stenosis Osteopenia Consultations: None Condition on Discharge: Fair Disposition: The patient will be advised to follow-up with otolaryngology within 2 weeks of discharge for finding of query of tracheal mass The patient is advised follow-up with orthopedic surgery 7 to 10 days post discharge for diagnosis of left rotator cuff tear and right knee sprain The patient is advised follow-up with gastroenterology within 2 weeks of disch arge for fecal occult blood positive stool The patient is advised to follow-up with his primary care physician or provider 2 weeks post discharge for posthospitalization evaluation and for monitoring of right adrenal adenoma Discharge Medications: [place] 5/325 mg p.o. every 4 hours as needed severe pain. Quantity 20. 0 refills Vitamin C 500 mg p.o. daily Aspirin 81 mg p.o. daily Bumex 2 mg p.o. twice daily Pletal 100 mg p.o. twice daily Zetia 10 mg p.o. daily Ferrous sulfate 3 5 5 mg p.o. twice daily Melatonin 6 mg p.o. nightly as needed insomnia Prilosec 20 mg p.o. daily Ultram 50 mg p.o. twice daily Coumadin 2.5 mg p.o. on Saturday, Coumadin 5 mg p.o. on Saturday, Saturday, Saturday, Saturday, Saturday Tylenol 650 mg p.o. every 4 hours as needed minor pain Proventil HFA: 90 brittney as per spray: 2 puffs every 6 hours as needed shortness of breath or wheeze Senna +2 tabs p.o. twice daily Metoprolol XL 50 mg p.o. daily K-Dur 10 M EQ p.o. twice daily MiraLAX 17 g p.o. daily Lidocaine 5% patch to be applied to affected area daily for 12 hours as needed pain. Quantity 15. 0 refills Milk of magnesia 30 mL p.o. twice daily END OF DOCTOR EMAMIS DISCHARGE SUMMARY - Discharge Data Discharge Date: 11/16/20 Discharge Disposition: DC/Tfer to SNF 03 Condition: Fair - Referral to Home Health Primary Care Physician: PCP None - Patient Summary/Data Consults: Consultations 11/10/20 13:16 Consult to Case Management/Pantograph Ii Engraver [CONS] Routine OT Evaluation and Treatment [CONS] Routine PT Evaluation and Treatment [CONS] Routine - Patient Instructions Diet: Heart Healthy Diet, Low Sodium, Fluid Restriction Activity: As Tolerated - Discharge Plan *PRESCRIPTION DRUG MONITORING PROGRAM REVIEWED*: Not Applicable *COPY OF PRESCRIPTION DRUG MONITORING REPORT IN PATIENT MIGUEL: Not Applicable Prescriptions/Med Rec: Hydrocodone/Acetaminophen [Hydrocodone-Acetamin 5-325 mg] 1 each PO Q4H PRN 20 Days #20 tablet PRN Reason: Pain (Severe 7-10) Lidocaine 5% [Lidoderm 5%] 1,400 mg TOP DAILY@0900 PRN 15 Days #15 patch PRN Reason: Pain Magnesium Hydroxide [Milk of Magnesia] 30 ml PO BID 30 Days #60 cup polyethylene glycoL 3350 [MiraLAX] 17 gm PO DAILY 30 Days #30 packet Docusate Sodium/Sennosides [Senna Plus] 2 tab PO BID 30 Days #120 tablet Ascorbic Acid [Vitamin C] 500 mg PO DAILY 30 Days #30 tablet Home Medications: Home Meds Aspirin [Halfprin] 81 mg PO DAILY 06/16/13 [History] Omeprazole 20 mg PO DAILY 06/16/13 [History] Ezetimibe [Zetia] 10 mg PO DAILY 07/27/20 [History] cilostazoL [Pletal] 100 mg PO BID 07/27/20 [History] Warfarin [Coumadin] 2.5 mg PO .TU,07/28/20 [History] Warfarin [Coumadin] 5 mg PO .MON,WED,FRI,SAT,SUN 07/28/20 [History] Lutein/Minerals/Vit A,C & E [I-[place]] 1 each PO BID tablet 08/01/20 [Rx] Acetaminophen [Tylenol] 650 mg PO Q4H PRN tablet 08/08/20 [Rx] Ferrous Sulfate 325 mg PO BIDMEALS #60 tablet 08/08/20 [Rx] Melatonin 6 mg PO BEDTIME PRN #60 tablet 08/08/20 [Rx] Albuterol Sulfate [Albuterol Sulfate Hfa] 2 inh PO Q6H PRN 11/10/20 [History] Bumetanide 2 mg PO BID 11/10/20 [History] Metoprolol Succinate [Toprol Xl] 50 mg PO DAILY 11/10/20 [History] Potassium Chloride [Klor-Con 10] 10 meq PO BID 11/10/20 [History] traMADol HCl [Tramadol HCl] 50 mg PO BID 11/10/20 [History] Ascorbic Acid [Vitamin C] 500 mg PO DAILY 30 Days #30 tablet 11/16/20 [Rx] Docusate Sodium/Sennosides [Senna Plus] 2 tab PO BID 30 Days #120 tablet 11/16/20 [Rx] Hydrocodone/Acetaminophen [Hydrocodone-Acetamin 5-325 mg] 1 each PO Q4H PRN 20 Days #20 tablet 11/16/20 [Rx] Lidocaine 5% [Lidoderm 5%] 1,400 mg TOP DAILY@0900 PRN 15 Days #15 patch 11/16/20 [Rx] Magnesium Hydroxide [Milk of Magnesia] 30 ml PO BID 30 Days #60 cup 11/16/20 [Rx] polyethylene glycoL 3350 [MiraLAX] 17 gm PO DAILY 30 Days #30 packet 11/16/20 [Rx] Referrals: PCP,None [Primary Care Provider] - - Discharge Summary/Plan Comment DC Time >30 min.: Yes - General Info Date of Service: 11/16/20 - Review of Systems General: Reports: No Symptoms HEENT: Reports: No Symptoms Pulmonary: Reports: No Symptoms Cardiovascular: Reports: No Symptoms Gastrointestinal: Reports: No Symptoms Genitourinary: Reports: No Symptoms Musculoskeletal: Reports: Shoulder Pain, Arm Pain Skin: Reports: No Symptoms Neurological: Reports: No Symptoms Psychiatric: Reports: No Symptoms - Patient Data Vitals - Most Recent: Last Vital Signs Temp 98.9 F 11/16/20 07:35 Pulse 90 11/16/20 07:35 Resp 17 11/16/20 07:35 BP 106/58 L 11/16/20 07:35 Pulse Ox 92 L 11/16/20 07:35 Weight - Most Recent: 166 lb I&O - Last 24 hours: Intake & Output 11/15/20 11/16/20 11/16/20 22:59 06:59 14:59 Output Total 525 400 Balance -525 -400 Lab Results - Last 24 hrs: Laboratory Results - last 24 hr 11/16/20 Range/Units 06:15 PT 19.8 H D (9.0-12.0) SEC INR 2.0 H (0.9-1.2) Med Orders - Current: Current Medications Acetaminophen (Acetaminophen 325 Mg Tab) 650 mg PO Q4H PRN PRN Reason: Pain (Mild 1-3)/fever Last Admin: 11/12/20 23:46 Dose: 650 mg Documented by: Hydrocodone Bitart/Acetaminophen (Acetaminophen/Hydrocodone 325-5 Mg Tab) 1 tab PO Q4H PRN PRN Reason: Pain (moderate 4-6) Last Admin: 11/14/20 14:44 Dose: 1 tab Documented by: Ascorbic Acid (Ascorbic Acid 500 Mg Tab) 500 mg PO DAILY [facility] Last Admin: 11/15/20 09:11 Dose: 500 mg Documented by: Aspirin (Aspirin 81 Mg Tab.Ec) 81 mg PO DAILY [facility] Last Admin: 11/15/20 09:08 Dose: 81 mg Documented by: Bumetanide (Bumetanide 1 Mg Tab) 2 mg PO BIDDIURETIC [facility] Last Admin: 11/15/20 13:26 Dose: 2 mg Documented by: Ezetimibe (Ezetimibe 10 Mg Tab) 10 mg PO DAILY [facility] Last Admin: 11/15/20 09:11 Dose: 10 mg Documented by: Ferrous Sulfate (Ferrous Sulfate 325 Mg Tab) 325 mg PO BIDMEALS [facility] Last Admin: 11/15/20 18:33 Dose: 325 mg Documented by: Lidocaine (Lidocaine 5% 700 Mg Patch) 1,400 mg TOP DAILY@0900 [facility] Last Admin: 11/15/20 09:19 Dose: 1,400 mg Documented by: Magnesium Hydroxide (Magnesium Hydroxide 400 Mg/5 Ml Susp 30 Ml Cup) 30 ml PO BID [facility] Last Admin: 11/15/20 20:50 Dose: 30 ml Documented by: Melatonin (Melatonin 3 Mg Tab) 6 mg PO BEDTIME PRN PRN Reason: Insomnia Last Admin: 11/12/20 23:48 Dose: 6 mg Documented by: Metoprolol Succinate (Metoprolol Succinate 50 Mg Tab.Er) 50 mg PO DAILY [facility] Last Admin: 11/15/20 09:11 Dose: 50 mg Documented by: Miscellaneous Information (Remove Lidocaine Patch) 1 ea TRDERM DAILY@2100 [facility] Last Admin: 11/15/20 20:54 Dose: 1 ea Documented by: Miscellaneous Information (Remove Nicotine Patch) 1 ea TRDERM DAILY [facility] Last Admin: 11/15/20 09:22 Dose: Not Given Documented by: Morphine Sulfate (Morphine 2 Mg/Ml Syringe) 1 mg IVPUSH Q4H PRN PRN Reason: Pain (severe 7-10) Last Admin: 11/10/20 14:28 Dose: 1 mg Documented by: Nicotine (Nicotine 7 Mg/24 Hr Patch) 7 mg TRDERM DAILY PRN PRN Reason: Smoking cessation Last Admin: 11/13/20 17:48 Dose: 7 mg Documented by: Omeprazole (Omeprazole 20 Mg Cap.Cr) 20 mg PO ACBREAKFAST [facility] Last Admin: 11/16/20 06:43 Dose: 20 mg Documented by: Ondansetron HCl (Ondansetron 4 Mg/2 Ml Sdv) 4 mg IVPUSH Q4H PRN PRN Reason: Nausea/Vomiting Cilostazol 100 Mg (Tab *Pt Own Med*) 0 each PO BID [facility] Last Admin: 11/15/20 20:52 Dose: 1 each Documented by: Polyethylene Glycol (Polyethylene Glycol 3350 Powder 17 Gm Packet) 17 gm PO DAILY [facility] Last Admin: 11/15/20 09:11 Dose: 17 gm Documented by: Senna/Docusate Sodium (Docusate Sodium/Sennosides 50-8.6 Mg Tab) 2 tab PO BID [facility] Last Admin: 11/15/20 20:50 Dose: 2 tab Documented by: Sodium Chloride (Sodium Chloride 0.9% 10 Ml Syringe) 10 ml FLUSH ASDIRECTED PRN PRN Reason: Keep Vein Open Last Admin: 11/12/20 21:32 Dose: 10 ml Documented by: Tramadol HCl (Tramadol 50 Mg Tab) 50 mg PO BID [facility] Last Admin: 11/15/20 20:51 Dose: 50 mg Documented by: Warfarin Sodium (Warfarin 2.5 Mg Tab) 2.5 mg PO TuTh@1400 [facility] Last Admin: 11/10/20 17:39 Dose: 2.5 mg Documented by: Warfarin Sodium (Warfarin 5 Mg Tab) 5 mg PO MoWeFr@1400 [facility] Last Admin: 11/11/20 14:17 Dose: 5 mg Documented by: Warfarin Sodium (Warfarin 5 Mg Tab) 5 mg PO SuSa@1400 [facility] Last Admin: 11/13/20 13:48 Dose: 5 mg Documented by: Discontinued Medications Bisacodyl (Bisacodyl 10 Mg Supp) 10 mg RECTAL ONETIME ONE Stop: 11/14/20 07:54 Last Admin: 11/14/20 08:32 Dose: 10 mg Documented by: Ferrous Sulfate (Ferrous Sulfate 325 Mg Tab) 325 mg PO BIDMEALS [facility] Iron Sucrose 100 mg/ Sodium (Chloride) 105 mls @ 400 mls/hr IV DAILY@1000 [facility] Last Admin: 11/14/20 10:14 Dose: 400 mls/hr Documented by: Lidocaine (Lidocaine 5% 700 Mg Patch) 700 mg TOP DAILY@0900 [facility] Last Admin: 11/14/20 08:30 Dose: 700 mg Documented by: Lidocaine (Lidocaine 5% 700 Mg Patch) 700 mg TOP ONETIME ONE Stop: 11/14/20 14:31 Last Admin: 11/14/20 14:43 Dose: 700 mg Documented by: Metoprolol Succinate (Metoprolol Succinate 25 Mg Tab.Er) 25 mg PO DAILY [facility] Morphine Sulfate (Morphine 2 Mg/Ml Syringe) 2 mg IVPUSH ONETIME ONE Stop: 11/10/20 11:53 Last Admin: 11/10/20 11:59 Dose: 2 mg Documented by: - Exam General: Reports: Alert, Oriented HEENT: Reports: Pupils Equal, Pupils Reactive, EOMI, Mucous Membr. Moist/[place] Neck: Reports: Supple Lungs: Reports: Clear to Auscultation, Normal Respiratory Effort Cardiovascular: Reports: Regular Rate, Regular Rhythm GI/Abdominal Exam: Normal Bowel Sounds, Soft, Non-Tender, No Organomegaly, No Distention, No Abnormal Bruit, No Mass, Pelvis Stable Back Exam: Reports: Normal Inspection, Full Range of Motion Extremities: Arm Pain, Leg Pain Skin: Reports: Warm, Dry, Intact Wound/Incisions: Reports: Healing Well Neurological: Reports: No New Focal Deficit Psy/Mental Status: Reports: Alert, Normal Affect, Normal Mood
--- NOTE | 2020-11-16 08:51 | PCM.PN ---
- General Info Date of Service: 11/16/20 Subjective Update: The patient states that his left arm/shoulder pain has improved however his right knee pain persists. Aside from this he endorses no complaints. He states that he slept well overnight. He denies fever, rigors, nausea, vomiting, cough, wheeze, abdominal pain, chest pain, dyspnea, or any other constitutional complaints. I explained to the patient his current medical condition and plan of care and I have answered all of his questions Functional Status: Reports: Pain Controlled - Review of Systems General: Reports: No Symptoms HEENT: Reports: No Symptoms Pulmonary: Reports: No Symptoms Cardiovascular: Reports: No Symptoms Gastrointestinal: Reports: No Symptoms Genitourinary: Reports: No Symptoms Musculoskeletal: Reports: Arm Pain, Leg Pain Skin: Reports: No Symptoms Neurological: Reports: No Symptoms Psychiatric: Reports: No Symptoms - Patient Data Vitals - Most Recent: Last Vital Signs Temp 98.9 F 11/16/20 07:35 Pulse 90 11/16/20 07:35 Resp 17 11/16/20 07:35 BP 106/58 L 11/16/20 07:35 Pulse Ox 92 L 11/16/20 07:35 Weight - Most Recent: 166 lb I&O - Last 24 Hours: Intake & Output 11/15/20 11/16/20 11/16/20 22:59 06:59 14:59 Output Total 525 400 Balance -525 -400 Lab Results Last 24 Hours: Laboratory Results - last 24 hr 11/16/20 Range/Units 06:15 PT 19.8 H D (9.0-12.0) SEC INR 2.0 H (0.9-1.2) Med Orders - Current: Current Medications Acetaminophen (Acetaminophen 325 Mg Tab) 650 mg PO Q4H PRN PRN Reason: Pain (Mild 1-3)/fever Last Admin: 11/12/20 23:46 Dose: 650 mg Documented by: Hydrocodone Bitart/Acetaminophen (Acetaminophen/Hydrocodone 325-5 Mg Tab) 1 tab PO Q4H PRN PRN Reason: Pain (moderate 4-6) Last Admin: 11/14/20 14:44 Dose: 1 tab Documented by: Ascorbic Acid (Ascorbic Acid 500 Mg Tab) 500 mg PO DAILY [facility] Last Admin: 11/15/20 09:11 Dose: 500 mg Documented by: Aspirin (Aspirin 81 Mg Tab.Ec) 81 mg PO DAILY [facility] Last Admin: 11/15/20 09:08 Dose: 81 mg Documented by: Bumetanide (Bumetanide 1 Mg Tab) 2 mg PO BIDDIURETIC [facility] Last Admin: 11/15/20 13:26 Dose: 2 mg Documented by: Ezetimibe (Ezetimibe 10 Mg Tab) 10 mg PO DAILY [facility] Last Admin: 11/15/20 09:11 Dose: 10 mg Documented by: Ferrous Sulfate (Ferrous Sulfate 325 Mg Tab) 325 mg PO BIDMEALS [facility] Last Admin: 11/15/20 18:33 Dose: 325 mg Documented by: Lidocaine (Lidocaine 5% 700 Mg Patch) 1,400 mg TOP DAILY@0900 [facility] Last Admin: 11/15/20 09:19 Dose: 1,400 mg Documented by: Magnesium Hydroxide (Magnesium Hydroxide 400 Mg/5 Ml Susp 30 Ml Cup) 30 ml PO BID [facility] Last Admin: 11/15/20 20:50 Dose: 30 ml Documented by: Melatonin (Melatonin 3 Mg Tab) 6 mg PO BEDTIME PRN PRN Reason: Insomnia Last Admin: 11/12/20 23:48 Dose: 6 mg Documented by: Metoprolol Succinate (Metoprolol Succinate 50 Mg Tab.Er) 50 mg PO DAILY [facility] Last Admin: 11/15/20 09:11 Dose: 50 mg Documented by: Miscellaneous Information (Remove Lidocaine Patch) 1 ea TRDERM DAILY@2100 [facility] Last Admin: 11/15/20 20:54 Dose: 1 ea Documented by: Miscellaneous Information (Remove Nicotine Patch) 1 ea TRDERM DAILY [facility] Last Admin: 11/15/20 09:22 Dose: Not Given Documented by: Morphine Sulfate (Morphine 2 Mg/Ml Syringe) 1 mg IVPUSH Q4H PRN PRN Reason: Pain (severe 7-10) Last Admin: 11/10/20 14:28 Dose: 1 mg Documented by: Nicotine (Nicotine 7 Mg/24 Hr Patch) 7 mg TRDERM DAILY PRN PRN Reason: Smoking cessation Last Admin: 11/13/20 17:48 Dose: 7 mg Documented by: Omeprazole (Omeprazole 20 Mg Cap.Cr) 20 mg PO ACBREAKFAST [facility] Last Admin: 11/16/20 06:43 Dose: 20 mg Documented by: Ondansetron HCl (Ondansetron 4 Mg/2 Ml Sdv) 4 mg IVPUSH Q4H PRN PRN Reason: Nausea/Vomiting Cilostazol 100 Mg (Tab *Pt Own Med*) 0 each PO BID [facility] Last Admin: 11/15/20 20:52 Dose: 1 each Documented by: Polyethylene Glycol (Polyethylene Glycol 3350 Powder 17 Gm Packet) 17 gm PO DAILY [facility] Last Admin: 11/15/20 09:11 Dose: 17 gm Documented by: Senna/Docusate Sodium (Docusate Sodium/Sennosides 50-8.6 Mg Tab) 2 tab PO BID [facility] Last Admin: 11/15/20 20:50 Dose: 2 tab Documented by: Sodium Chloride (Sodium Chloride 0.9% 10 Ml Syringe) 10 ml FLUSH ASDIRECTED PRN PRN Reason: Keep Vein Open Last Admin: 11/12/20 21:32 Dose: 10 ml Documented by: Tramadol HCl (Tramadol 50 Mg Tab) 50 mg PO BID [facility] Last Admin: 11/15/20 20:51 Dose: 50 mg Documented by: Warfarin Sodium (Warfarin 2.5 Mg Tab) 2.5 mg PO TuTh@1400 [facility] Last Admin: 11/10/20 17:39 Dose: 2.5 mg Documented by: Warfarin Sodium (Warfarin 5 Mg Tab) 5 mg PO MoWeFr@1400 [facility] Last Admin: 11/11/20 14:17 Dose: 5 mg Documented by: Warfarin Sodium (Warfarin 5 Mg Tab) 5 mg PO SuSa@1400 [facility] Last Admin: 11/13/20 13:48 Dose: 5 mg Documented by: Discontinued Medications Bisacodyl (Bisacodyl 10 Mg Supp) 10 mg RECTAL ONETIME ONE Stop: 11/14/20 07:54 Last Admin: 11/14/20 08:32 Dose: 10 mg Documented by: Ferrous Sulfate (Ferrous Sulfate 325 Mg Tab) 325 mg PO BIDMEALS [facility] Iron Sucrose 100 mg/ Sodium (Chloride) 105 mls @ 400 mls/hr IV DAILY@1000 [facility] Last Admin: 11/14/20 10:14 Dose: 400 mls/hr Documented by: Lidocaine (Lidocaine 5% 700 Mg Patch) 700 mg TOP DAILY@0900 [facility] Last Admin: 11/14/20 08:30 Dose: 700 mg Documented by: Lidocaine (Lidocaine 5% 700 Mg Patch) 700 mg TOP ONETIME ONE Stop: 11/14/20 14:31 Last Admin: 11/14/20 14:43 Dose: 700 mg Documented by: Metoprolol Succinate (Metoprolol Succinate 25 Mg Tab.Er) 25 mg PO DAILY [facility] Morphine Sulfate (Morphine 2 Mg/Ml Syringe) 2 mg IVPUSH ONETIME ONE Stop: 11/10/20 11:53 Last Admin: 11/10/20 11:59 Dose: 2 mg Documented by: - Exam General: Alert, Oriented HEENT: Pupils Equal, Pupils Reactive, EOMI, Mucous Membr. Moist/[place] Neck: Supple Lungs: Clear to Auscultation, Normal Respiratory Effort Cardiovascular: Regular Rate, Regular Rhythm GI/Abdominal Exam: Normal Bowel Sounds, Soft, Non-Tender, No Organomegaly, No Distention, No Abnormal Bruit, No Mass, Pelvis Stable Back Exam: Normal Inspection, Full Range of Motion Extremities: Arm Pain, Leg Pain Skin: Warm, Dry, Intact Wound/Incisions: Healing Well Neurological: No New Focal Deficit Psy/Mental Status: Alert, Normal Affect, Normal Mood - Patient Data Lab Results Last 24 hrs: Laboratory Results - last 24 hr 11/16/20 Range/Units 06:15 PT 19.8 H D (9.0-12.0) SEC INR 2.0 H (0.9-1.2) Result Diagrams: 11/13/20 06:15 11/10/20 12:11 Sepsis Event Note - Evaluation Sepsis Screening Result: No Definite Risk - Focused Exam Vital Signs: Vital Signs Temp Pulse Resp BP BP Pulse Ox 11/16/20 07:35 98.9 F 90 17 106/58 L 92 L 11/16/20 00:00 98.6 F 97 20 97/63 93 L 11/15/20 21:40 99.1 F 96 18 96/54 L 95 - Problem List Review Problem List Initiated/Reviewed/Updated: Yes - My Orders Last 24 Hours: My Active Orders 11/15/20 08:00 Ferrous Sulfate 325 mg PO BIDMEALS 11/15/20 09:00 Lidocaine 5% [Lidoderm 5%] 1,400 mg TOP DAILY@0900 11/16/20 07:40 Ready for Discharge [RC] PER UNIT ROUTINE 11/16/20 08:48 CORONAVIRUS COVID-19 HIGINIO [[facility]] Routine - Plan Plan:: Status post fall with resultant left rotator cuff tear. As needed analgesia. PT eval. OT eval. Case management evaluation for possible placement. Outpatient follow-up with orthopedic surgery upon discharge. Lidocaine 5% patch to be applied to affected area for 12 hours daily Query tracheal mass. Outpatient follow-up with otolaryngology Chronic pain. Ultram 50 mg p.o. twice daily Atrial fibrillation. Toprol-XL 50 mg p.o. daily plus Coumadin p.o. per home do se and frequency Osteoarthritis Macular degeneration Severe pulmonary hypertension Degenerative disc disease History of DVT. Coumadin p.o. per home dose and frequency Obstructive sleep apnea. CPAP/BiPAP: Okay to use home device and/or pressure when sleeping for obstructive sleep apnea if the patient uses CPAP or BiPAP at home Peripheral vascular disease. Aspirin 81 mg p.o. daily plus Pletal 100 mg p.o. twice daily Constipation. Docusate/senna: 2 tabs p.o. twice daily plus MiraLAX 17 g p.o. daily plus milk of magnesia 30 mL p.o. twice daily Iron deficiency anemia. Will monitor hemoglobin level intermittently. Fecal occult blood positive for which patient will need to follow-up with gastroenterology upon discharge. Vitamin C 500 mg p.o. daily plus ferrous sulfate 305 mg p.o. twice daily Documented history of CHF however echocardiogram from August 01, 2020 was unremarkable with exception of severe pulmonary hypertension. Bumex 2 mg p.o. twice daily plus metoprolol 50 mg p.o. daily Coronary artery disease. Aspirin 81 mg p.o. daily plus metoprolol XL 50 mg p.o. daily GERD. Prilosec 20 mg p.o. daily Hyperlipidemia. Zetia 10 mg p.o. daily Hypertension. Bumex 2 mg p.o. twice daily plus Toprol-XL 50 mg p.o. daily Smoker. Patient will be counseled regarding smoking cessation Erectile dysfunction Diverticulosis Right adrenal adenoma. Outpatient monitoring with his primary care physician or provider Cholelithiasis, asymptomatic Spinal stenosis Osteopenia DVT prophylaxis. Coumadin p.o. per home dose and frequency Disposition: The patient is medically stable for discharge. We were anticipating discharge on November 16, 2020, however [facility]ing issues at the [facility] we will need to wait until November 17, 2020 to discharge the patient to the SNF
[2020-11-16] MEDS: Bumetanide 1 MG Tab PO SCH ×2 (09:25→14:11)
[2020-11-16] MEDS: Magnesium Hydroxide 400 MG/5 ML Susp 30 ML Cup PO SCH ×3 (09:25→21:33)
[2020-11-16] MEDS: Ferrous Sulfate 325 MG Tab PO SCH ×2 (09:26→17:34)
[2020-11-16] MEDS: Polyethylene Glycol 3350 Powder 17 GM Packet PO SCH (09:26)
[2020-11-16] MEDS: Aspirin 81 MG Tab.EC PO SCH (09:26)
[2020-11-16] MEDS: Ezetimibe 10 MG Tab PO SCH (09:26)
[2020-11-16] MEDS: Metoprolol Succinate 50 MG Tab.ER PO SCH (09:28)
[2020-11-16] MEDS: Lidocaine 5% 700 MG Patch TOP SCH (09:29)
[2020-11-16] MEDS: Ascorbic Acid 500 MG Tab PO SCH (09:29)
[2020-11-16] MEDS: traMADol 50 MG Tab PO SCH ×2 (09:30→21:25)
[2020-11-16] MEDS: CILOSTAZOL 100 MG PO SCH ×2 (09:31→21:31)
[2020-11-16] MEDS: Nicotine 7 MG/24 Hr Patch TRDERM PRN (11:24)
[2020-11-16] MEDS: Warfarin 5 MG Tab PO SCH (13:57)
[2020-11-16] MEDS: Melatonin 3 MG Tab PO PRN (21:24)
[2020-11-16] MEDS: Sodium Chloride 0.9% 10 ML Syringe FLUSH PRN (22:38)
[2020-11-17] MEDS: Omeprazole 20 MG Cap.CR PO SCH (06:30)
--- NOTE | 2020-11-17 08:06 | PCM.PN ---
- General Info Date of Service: 11/17/20 Subjective Update: The patient complains of left arm/shoulder pain as well as right knee pain but overall he states that both are slowly improving. Aside from this he endorses no complaints. He denies fever, rigors, nausea, vomiting, cough, wheeze, abdominal pain, chest pain, dyspnea, lightheadedness, dizziness, or any other constitutional complaints. I explained to the patient his current medical condition and plan of care and have answered all of his questions - Review of Systems General: Reports: No Symptoms HEENT: Reports: No Symptoms Pulmonary: Reports: No Symptoms Cardiovascular: Reports: No Symptoms Gastrointestinal: Reports: No Symptoms Genitourinary: Reports: No Symptoms Musculoskeletal: Reports: Arm Pain, Leg Pain, Joint Pain Skin: Reports: No Symptoms Neurological: Reports: No Symptoms Psychiatric: Reports: No Symptoms - Patient Data Vitals - Most Recent: Last Vital Signs Temp 99.7 F 11/17/20 00:03 Pulse 85 11/17/20 00:03 Resp 18 11/17/20 00:03 BP 101/46 L 11/17/20 00:03 Pulse Ox 94 L 11/17/20 00:03 Weight - Most Recent: 168 lb 9.6 oz I&O - Last 24 Hours: Intake & Output 11/16/20 11/17/20 11/17/20 22:59 06:59 14:59 Intake Total 360 150 Output Total 150 Balance 360 0 Med Orders - Current: Current Medications Acetaminophen (Acetaminophen 325 Mg Tab) 650 mg PO Q4H PRN PRN Reason: Pain (Mild 1-3)/fever Last Admin: 11/12/20 23:46 Dose: 650 mg Documented by: Hydrocodone Bitart/Acetaminophen (Acetaminophen/Hydrocodone 325-5 Mg Tab) 1 tab PO Q4H PRN PRN Reason: Pain (moderate 4-6) Last Admin: 11/14/20 14:44 Dose: 1 tab Documented by: Ascorbic Acid (Ascorbic Acid 500 Mg Tab) 500 mg PO DAILY [facility] Last Admin: 11/16/20 09:29 Dose: 500 mg Documented by: Aspirin (Aspirin 81 Mg Tab.Ec) 81 mg PO DAILY [facility] Last Admin: 11/16/20 09:26 Dose: 81 mg Documented by: Bumetanide (Bumetanide 1 Mg Tab) 2 mg PO BIDDIURETIC [facility] Last Admin: 11/16/20 14:11 Dose: 2 mg Documented by: Ezetimibe (Ezetimibe 10 Mg Tab) 10 mg PO DAILY [facility] Last Admin: 11/16/20 09:26 Dose: 10 mg Documented by: Ferrous Sulfate (Ferrous Sulfate 325 Mg Tab) 325 mg PO BIDMEALS [facility] Last Admin: 11/16/20 17:34 Dose: 325 mg Documented by: Lidocaine (Lidocaine 5% 700 Mg Patch) 1,400 mg TOP DAILY@0900 [facility] Last Admin: 11/16/20 09:29 Dose: 1,400 mg Documented by: Magnesium Hydroxide (Magnesium Hydroxide 400 Mg/5 Ml Susp 30 Ml Cup) 30 ml PO BID [facility] Last Admin: 11/16/20 21:33 Dose: Not Given Documented by: Melatonin (Melatonin 3 Mg Tab) 6 mg PO BEDTIME PRN PRN Reason: Insomnia Last Admin: 11/16/20 21:24 Dose: 6 mg Documented by: Metoprolol Succinate (Metoprolol Succinate 50 Mg Tab.Er) 50 mg PO DAILY [facility] Last Admin: 11/16/20 09:28 Dose: 50 mg Documented by: Miscellaneous Information (Remove Lidocaine Patch) 1 ea TRDERM DAILY@2100 [facility] Last Admin: 11/16/20 21:29 Dose: 1 ea Documented by: Miscellaneous Information (Remove Nicotine Patch) 1 ea TRDERM DAILY [facility] Last Admin: 11/16/20 11:17 Dose: Not Given Documented by: Morphine Sulfate (Morphine 2 Mg/Ml Syringe) 1 mg IVPUSH Q4H PRN PRN Reason: Pain (severe 7-10) Last Admin: 11/10/20 14:28 Dose: 1 mg Documented by: Nicotine (Nicotine 7 Mg/24 Hr Patch) 7 mg TRDERM DAILY PRN PRN Reason: Smoking cessation Last Admin: 11/16/20 11:24 Dose: 7 mg Documented by: Omeprazole (Omeprazole 20 Mg Cap.Cr) 20 mg PO ACBREAKFAST [facility] Last Admin: 11/17/20 06:30 Dose: 20 mg Documented by: Ondansetron HCl (Ondansetron 4 Mg/2 Ml Sdv) 4 mg IVPUSH Q4H PRN PRN Reason: Nausea/Vomiting Cilostazol 100 Mg (Tab *Pt Own Med*) 0 each PO BID [facility] Last Admin: 11/16/20 21:31 Dose: 1 each Documented by: Polyethylene Glycol (Polyethylene Glycol 3350 Powder 17 Gm Packet) 17 gm PO DAILY [facility] Last Admin: 11/16/20 09:26 Dose: 17 gm Documented by: Senna/Docusate Sodium (Docusate Sodium/Sennosides 50-8.6 Mg Tab) 2 tab PO BID [facility] Last Admin: 11/16/20 21:24 Dose: 2 tab Documented by: Sodium Chloride (Sodium Chloride 0.9% 10 Ml Syringe) 10 ml FLUSH ASDIRECTED PRN PRN Reason: Keep Vein Open Last Admin: 11/16/20 22:38 Dose: 10 ml Documented by: Tramadol HCl (Tramadol 50 Mg Tab) 50 mg PO BID [facility] Last Admin: 11/16/20 21:25 Dose: 50 mg Documented by: Warfarin Sodium (Warfarin 2.5 Mg Tab) 2.5 mg PO TuTh@1400 [facility] Last Admin: 11/10/20 17:39 Dose: 2.5 mg Documented by: Warfarin Sodium (Warfarin 5 Mg Tab) 5 mg PO MoWeFr@1400 [facility] Last Admin: 11/16/20 13:57 Dose: Not Given Documented by: Warfarin Sodium (Warfarin 5 Mg Tab) 5 mg PO SuSa@1400 [facility] Last Admin: 11/13/20 13:48 Dose: 5 mg Documented by: Discontinued Medications Bisacodyl (Bisacodyl 10 Mg Supp) 10 mg RECTAL ONETIME ONE Stop: 11/14/20 07:54 Last Admin: 11/14/20 08:32 Dose: 10 mg Documented by: Ferrous Sulfate (Ferrous Sulfate 325 Mg Tab) 325 mg PO BIDMEALS [facility] Iron Sucrose 100 mg/ Sodium (Chloride) 105 mls @ 400 mls/hr IV DAILY@1000 [facility] Last Admin: 11/14/20 10:14 Dose: 400 mls/hr Documented by: Lidocaine (Lidocaine 5% 700 Mg Patch) 700 mg TOP DAILY@0900 [facility] Last Admin: 11/14/20 08:30 Dose: 700 mg Documented by: Lidocaine (Lidocaine 5% 700 Mg Patch) 700 mg TOP ONETIME ONE Stop: 11/14/20 14:31 Last Admin: 11/14/20 14:43 Dose: 700 mg Documented by: Metoprolol Succinate (Metoprolol Succinate 25 Mg Tab.Er) 25 mg PO DAILY [facility] Morphine Sulfate (Morphine 2 Mg/Ml Syringe) 2 mg IVPUSH ONETIME ONE Stop: 11/10/20 11:53 Last Admin: 11/10/20 11:59 Dose: 2 mg Documented by: - Exam General: Alert, Oriented HEENT: Pupils Equal, Pupils Reactive, EOMI, Mucous Membr. Moist/[place] Neck: Supple Lungs: Clear to Auscultation, Normal Respiratory Effort Cardiovascular: Regular Rate, Regular Rhythm GI/Abdominal Exam: Normal Bowel Sounds, Soft, Non-Tender, No Organomegaly, No Distention, No Abnormal Bruit, No Mass, Pelvis Stable Back Exam: Normal Inspection, Full Range of Motion Extremities: Arm Pain, Leg Pain Peripheral Pulses: 2+: Carotid (L), Carotid (R), Brachial (L), Brachial (R), R adial (L), Radial (R), Femoral (L), Femoral (R), Popliteal (L), Popliteal (R), Posterior Tibial (L), Posterior Tibial (R), Dorsalis Pedis (L), Dorsalis Pedis (R) Skin: Warm, Dry, Intact Wound/Incisions: Healing Well Neurological: No New Focal Deficit Psy/Mental Status: Alert, Normal Affect, Normal Mood - Patient Data Result Diagrams: 11/13/20 06:15 11/10/20 12:11 Sepsis Event Note - Evaluation Sepsis Screening Result: No Definite Risk - Focused Exam Vital Signs: Vital Signs Temp Pulse Resp BP BP Pulse Ox 11/17/20 00:03 99.7 F 85 18 101/46 L 94 L 11/16/20 21:00 100.4 F 89 20 114/54 L 96 - Problem List Review Problem List Initiated/Reviewed/Updated: Yes - My Orders Last 24 Hours: My Active Orders 11/16/20 08:48 CORONAVIRUS COVID-19 HIGINIO [MOLEC] Routine 11/17/20 08:02 INR,PT,PROTHROMBIN TIME [COAG] Routine 11/18/20 05:00 INR,PT,PROTHROMBIN TIME [COAG] Routine - Plan Plan:: Status post fall with resultant left rotator cuff tear. As needed analgesia. PT eval. OT eval. Case management evaluation for possible placement. Outpatient follow-up with orthopedic surgery upon discharge. Lidocaine 5% patch to be applied to affected area for 12 hours daily Query tracheal mass. Outpatient follow-up with otolaryngology Chronic pain. Ultram 50 mg p.o. twice daily Atrial fibrillation. Toprol-XL 50 mg p.o. daily plus Coumadin p.o. per home dose and frequency Osteoarthritis Macular degeneration Severe pulmonary hypertension Degenerative disc disease History of DVT. Coumadin p.o. per home dose and frequency Obstructive sleep apnea. CPAP/BiPAP: Okay to use home device and/or pressure when sleeping for obstructive sleep apnea if the patient uses CPAP or BiPAP at home Peripheral vascular disease. Aspirin 81 mg p.o. daily plus Pletal 100 mg p.o. twice daily Constipation. Docusate/senna: 2 tabs p.o. twice daily plus MiraLAX 17 g p.o. daily plus milk of magnesia 30 mL p.o. twice daily Iron deficiency anemia. Will monitor hemoglobin level intermittently. Fecal occult blood positive for which patient will need to follow-up with gastroenterology upon discharge. Vitamin C 500 mg p.o. daily plus ferrous sulfate 305 mg p.o. twice daily Documented history of CHF however echocardiogram from August 01, 2020 was unremarkable with exception of severe pulmonary hypertension. Bumex 2 mg p.o. twice daily plus metoprolol 50 mg p.o. daily Coronary artery disease. Aspirin 81 mg p.o. daily plus metoprolol XL 50 mg p.o. daily GERD. Prilosec 20 mg p.o. daily Hyperlipidemia. Zetia 10 mg p.o. daily Hypertension. Bumex 2 mg p.o. twice daily plus Toprol-XL 50 mg p.o. daily Smoker. Patient will be counseled regarding smoking cessation Erectile dysfunction Diverticulosis Right adrenal adenoma. Outpatient monitoring with his primary care physician or provider Cholelithiasis, asymptomatic Spinal stenosis Osteopenia DVT prophylaxis. Coumadin p.o. per home dose and frequency Disposition: The patient is medically stable for discharge on this day of 2020-11-17
--- NOTE | 2020-11-17 09:05 | PCM.DCSUM1 ---
Discharge Summary - Hospital Course Free Text/Narrative:: START OF DOCTOR DEVENDRAMIHanh DISCHARGE SUMMARY Date of Admission: November 10, 2020 Date of Discharge: 9:04 AM on November 17, 2020 Primary Diagnosis: Status post fall with resultant left rotator cuff tear and right knee sprain Secondary Diagnosis: Query tracheal mass Chronic pain Atrial fibrillation Osteoarthritis Macular degeneration Severe pulmonary hypertension Degenerative disc disease History of DVT Obstructive sleep apnea Peripheral vascular disease Constipation Iron deficiency anemia Documented history of CHF however echocardiogram from August 01, 2020 was unremarkable with the exception of severe pulmonary hypertension Coronary artery disease GERD Hyperlipidemia Hypertension Smoker Erectile dysfunction Diverticulosis Right adrenal adenoma Cholelithiasis, asymptomatic Spinal stenosis Osteopenia Consultations: None Condition on Discharge: Fair Disposition: The patient will be advised to follow-up with otolaryngology within 2 weeks of discharge for finding of query of tracheal mass The patient is advised follow-up with orthopedic surgery 7 to 10 days post discharge for diagnosis of left rotator cuff tear and right knee sprain The patient is advised follow-up with gastroenterology within 2 weeks of discha rge for fecal occult blood positive stool The patient is advised to follow-up with his primary care physician or provider 2 weeks post discharge for posthospitalization evaluation and for monitoring of right adrenal adenoma Discharge Medications: [place] 5/325 mg p.o. every 4 hours as needed severe pain. Quantity 20. 0 refills Vitamin C 500 mg p.o. daily Aspirin 81 mg p.o. daily Bumex 2 mg p.o. twice daily Pletal 100 mg p.o. twice daily Zetia 10 mg p.o. daily Ferrous sulfate 3 5 5 mg p.o. twice daily Melatonin 6 mg p.o. nightly as needed insomnia Prilosec 20 mg p.o. daily Ultram 50 mg p.o. twice daily Coumadin 2.5 mg p.o. on Saturday, Coumadin 5 mg p.o. on Saturday, Saturday, Saturday, Saturday, Saturday Tylenol 650 mg p.o. every 4 hours as needed minor pain Proventil HFA: 90 brittney as per spray: 2 puffs every 6 hours as needed shortness of breath or wheeze Senna +2 tabs p.o. twice daily Metoprolol XL 50 mg p.o. daily K-Dur 10 M EQ p.o. twice daily MiraLAX 17 g p.o. daily Lidocaine 5% patch to be applied to affected area daily for 12 hours as needed pain. Quantity 15. 0 refills Milk of magnesia 30 mL p.o. twice daily END OF DOCTOR EMAMIS DISCHARGE SUMMARY - Discharge Data Discharge Date: 11/17/20 Discharge Disposition: DC/Tfer to SNF 03 Condition: Fair - Referral to Home Health Primary Care Physician: PCP None - Patient Summary/Data Consults: Consultations 11/10/20 13:16 Consult to Case Management/Pulper Operator [CONS] Routine OT Evaluation and Treatment [CONS] Routine PT Evaluation and Treatment [CONS] Routine - Patient Instructions Diet: Heart Healthy Diet, Low Sodium, Fluid Restriction Activity: As Tolerated - Discharge Plan *PRESCRIPTION DRUG MONITORING PROGRAM REVIEWED*: Not Applicable *COPY OF PRESCRIPTION DRUG MONITORING REPORT IN PATIENT MIGUEL: Not Applicable Prescriptions/Med Rec: Hydrocodone/Acetaminophen [Hydrocodone-Acetamin 5-325 mg] 1 each PO Q4H PRN 20 Days #20 tablet PRN Reason: Pain (Severe 7-10) Lidocaine 5% [Lidoderm 5%] 1,400 mg TOP DAILY@0900 PRN 15 Days #15 patch PRN Reason: Pain Magnesium Hydroxide [Milk of Magnesia] 30 ml PO BID 30 Days #60 cup polyethylene glycoL 3350 [MiraLAX] 17 gm PO DAILY 30 Days #30 packet Docusate Sodium/Sennosides [Senna Plus] 2 tab PO BID 30 Days #120 tablet Ascorbic Acid [Vitamin C] 500 mg PO DAILY 30 Days #30 tablet Home Medications: Home Meds Aspirin [Halfprin] 81 mg PO DAILY 06/16/13 [History] Omeprazole 20 mg PO DAILY 06/16/13 [History] Ezetimibe [Zetia] 10 mg PO DAILY 07/27/20 [History] cilostazoL [Pletal] 100 mg PO BID 07/27/20 [History] Warfarin [Coumadin] 2.5 mg PO .,07/28/20 [History] Warfarin [Coumadin] 5 mg PO .MON,WED,FRI,SAT,SUN 07/28/20 [History] Lutein/Minerals/Vit A,C & E [I-[place]] 1 each PO BID tablet 08/01/20 [Rx] Acetaminophen [Tylenol] 650 mg PO Q4H PRN tablet 08/08/20 [Rx] Ferrous Sulfate 325 mg PO BIDMEALS #60 tablet 08/08/20 [Rx] Melatonin 6 mg PO BEDTIME PRN #60 tablet 08/08/20 [Rx] Albuterol Sulfate [Albuterol Sulfate Hfa] 2 inh PO Q6H PRN 11/10/20 [History] Bumetanide 2 mg PO BID 11/10/20 [History] Metoprolol Succinate [Toprol Xl] 50 mg PO DAILY 11/10/20 [History] Potassium Chloride [Klor-Con 10] 10 meq PO BID 11/10/20 [History] traMADol HCl [Tramadol HCl] 50 mg PO BID 11/10/20 [History] Ascorbic Acid [Vitamin C] 500 mg PO DAILY 30 Days #30 tablet 11/16/20 [Rx] Docusate Sodium/Sennosides [Senna Plus] 2 tab PO BID 30 Days #120 tablet 11/16/20 [Rx] Hydrocodone/Acetaminophen [Hydrocodone-Acetamin 5-325 mg] 1 each PO Q4H PRN 20 Days #20 tablet 11/16/20 [Rx] Lidocaine 5% [Lidoderm 5%] 1,400 mg TOP DAILY@0900 PRN 15 Days #15 patch 11/16/20 [Rx] Magnesium Hydroxide [Milk of Magnesia] 30 ml PO BID 30 Days #60 cup 11/16/20 [Rx] polyethylene glycoL 3350 [MiraLAX] 17 gm PO DAILY 30 Days #30 packet 11/16/20 [Rx] Referrals: Bishop Porras MD [Physician] - - Discharge Summary/Plan Comment DC Time >30 min.: Yes - General Info Date of Service: 11/17/20 - Review of Systems General: Reports: No Symptoms HEENT: Reports: No Symptoms Pulmonary: Reports: No Symptoms Cardiovascular: Reports: No Symptoms Gastrointestinal: Reports: No Symptoms Genitourinary: Reports: No Symptoms Musculoskeletal: Reports: No Symptoms Skin: Reports: No Symptoms Neurological: Reports: No Symptoms Psychiatric: Reports: No Symptoms - Patient Data Vitals - Most Recent: Last Vital Signs Temp 99.7 F 11/17/20 00:03 Pulse 85 11/17/20 00:03 Resp 18 11/17/20 00:03 BP 101/46 L 11/17/20 00:03 Pulse Ox 94 L 11/17/20 00:03 Weight - Most Recent: 168 lb 9.6 oz I&O - Last 24 hours: Intake & Output 11/16/20 11/17/20 11/17/20 22:59 06:59 14:59 Intake Total 360 150 Output Total 150 Balance 360 0 Med Orders - Current: Current Medications Acetaminophen (Acetaminophen 325 Mg Tab) 650 mg PO Q4H PRN PRN Reason: Pain (Mild 1-3)/fever Last Admin: 11/12/20 23:46 Dose: 650 mg Documented by: Hydrocodone Bitart/Acetaminophen (Acetaminophen/Hydrocodone 325-5 Mg Tab) 1 tab PO Q4H PRN PRN Reason: Pain (moderate 4-6) Last Admin: 11/14/20 14:44 Dose: 1 tab Documented by: Ascorbic Acid (Ascorbic Acid 500 Mg Tab) 500 mg PO DAILY [facility] Last Admin: 11/16/20 09:29 Dose: 500 mg Documented by: Aspirin (Aspirin 81 Mg Tab.Ec) 81 mg PO DAILY [facility] Last Admin: 11/16/20 09:26 Dose: 81 mg Documented by: Bumetanide (Bumetanide 1 Mg Tab) 2 mg PO BIDDIURETIC [facility] Last Admin: 11/16/20 14:11 Dose: 2 mg Documented by: Ezetimibe (Ezetimibe 10 Mg Tab) 10 mg PO DAILY [facility] Last Admin: 11/16/20 09:26 Dose: 10 mg Documented by: Ferrous Sulfate (Ferrous Sulfate 325 Mg Tab) 325 mg PO BIDMEALS [facility] Last Admin: 11/16/20 17:34 Dose: 325 mg Documented by: Lidocaine (Lidocaine 5% 700 Mg Patch) 1,400 mg TOP DAILY@0900 [facility] Last Admin: 11/16/20 09:29 Dose: 1,400 mg Documented by: Magnesium Hydroxide (Magnesium Hydroxide 400 Mg/5 Ml Susp 30 Ml Cup) 30 ml PO BID [facility] Last Admin: 11/16/20 21:33 Dose: Not Given Documented by: Melatonin (Melatonin 3 Mg Tab) 6 mg PO BEDTIME PRN PRN Reason: Insomnia Last Admin: 11/16/20 21:24 Dose: 6 mg Documented by: Metoprolol Succinate (Metoprolol Succinate 50 Mg Tab.Er) 50 mg PO DAILY [facility] Last Admin: 11/16/20 09:28 Dose: 50 mg Documented by: Miscellaneous Information (Remove Lidocaine Patch) 1 ea TRDERM DAILY@2100 [facility] Last Admin: 11/16/20 21:29 Dose: 1 ea Documented by: Miscellaneous Information (Remove Nicotine Patch) 1 ea TRDERM DAILY [facility] Last Admin: 11/16/20 11:17 Dose: Not Given Documented by: Morphine Sulfate (Morphine 2 Mg/Ml Syringe) 1 mg IVPUSH Q4H PRN PRN Reason: Pain (severe 7-10) Last Admin: 11/10/20 14:28 Dose: 1 mg Documented by: Nicotine (Nicotine 7 Mg/24 Hr Patch) 7 mg TRDERM DAILY PRN PRN Reason: Smoking cessation Last Admin: 11/16/20 11:24 Dose: 7 mg Documented by: Omeprazole (Omeprazole 20 Mg Cap.Cr) 20 mg PO ACBREAKFAST [facility] Last Admin: 11/17/20 06:30 Dose: 20 mg Documented by: Ondansetron HCl (Ondansetron 4 Mg/2 Ml Sdv) 4 mg IVPUSH Q4H PRN PRN Reason: Nausea/Vomiting Cilostazol 100 Mg (Tab *Pt Own Med*) 0 each PO BID [facility] Last Admin: 11/16/20 21:31 Dose: 1 each Documented by: Polyethylene Glycol (Polyethylene Glycol 3350 Powder 17 Gm Packet) 17 gm PO DAILY [facility] Last Admin: 11/16/20 09:26 Dose: 17 gm Documented by: Senna/Docusate Sodium (Docusate Sodium/Sennosides 50-8.6 Mg Tab) 2 tab PO BID [facility] Last Admin: 11/16/20 21:24 Dose: 2 tab Documented by: Sodium Chloride (Sodium Chloride 0.9% 10 Ml Syringe) 10 ml FLUSH ASDIRECTED PRN PRN Reason: Keep Vein Open Last Admin: 11/16/20 22:38 Dose: 10 ml Documented by: Tramadol HCl (Tramadol 50 Mg Tab) 50 mg PO BID [facility] Last Admin: 11/16/20 21:25 Dose: 50 mg Documented by: Warfarin Sodium (Warfarin 2.5 Mg Tab) 2.5 mg PO TuTh@1400 [facility] Last Admin: 11/10/20 17:39 Dose: 2.5 mg Documented by: Warfarin Sodium (Warfarin 5 Mg Tab) 5 mg PO MoWeFr@1400 [facility] Last Admin: 11/16/20 13:57 Dose: Not Given Documented by: Warfarin Sodium (Warfarin 5 Mg Tab) 5 mg PO SuSa@1400 [facility] Last Admin: 11/13/20 13:48 Dose: 5 mg Documented by: Discontinued Medications Bisacodyl (Bisacodyl 10 Mg Supp) 10 mg RECTAL ONETIME ONE Stop: 11/14/20 07:54 Last Admin: 11/14/20 08:32 Dose: 10 mg Documented by: Ferrous Sulfate (Ferrous Sulfate 325 Mg Tab) 325 mg PO BIDMEALS [facility] Iron Sucrose 100 mg/ Sodium (Chloride) 105 mls @ 400 mls/hr IV DAILY@1000 [facility] Last Admin: 11/14/20 10:14 Dose: 400 mls/hr Documented by: Lidocaine (Lidocaine 5% 700 Mg Patch) 700 mg TOP DAILY@0900 [facility] Last Admin: 11/14/20 08:30 Dose: 700 mg Documented by: Lidocaine (Lidocaine 5% 700 Mg Patch) 700 mg TOP ONETIME ONE Stop: 11/14/20 14:31 Last Admin: 11/14/20 14:43 Dose: 700 mg Documented by: Metoprolol Succinate (Metoprolol Succinate 25 Mg Tab.Er) 25 mg PO DAILY [facility] Morphine Sulfate (Morphine 2 Mg/Ml Syringe) 2 mg IVPUSH ONETIME ONE Stop: 11/10/20 11:53 Last Admin: 11/10/20 11:59 Dose: 2 mg Documented by: - Exam General: Reports: Alert, Oriented HEENT: Reports: Pupils Equal, Pupils Reactive, EOMI, Mucous Membr. Moist/[place] Neck: Reports: Supple Lungs: Reports: Clear to Auscultation, Normal Respiratory Effort Cardiovascular: Reports: Regular Rate, Regular Rhythm GI/Abdominal Exam: Normal Bowel Sounds, Soft, Non-Tender, No Organomegaly, No Distention, No Abnormal Bruit, No Mass, Pelvis Stable Back Exam: Reports: Normal Inspection, Full Range of Motion Extremities: Normal Inspection, Normal Range of Motion, Non-Tender, No Pedal Edema, Normal Capillary Refill Skin: Reports: Warm, Dry, Intact Wound/Incisions: Reports: Healing Well Neurological: Reports: No New Focal Deficit Psy/Mental Status: Reports: Alert, Normal Affect, Normal Mood
[2020-11-17] MEDS: Bumetanide 1 MG Tab PO SCH (09:53)
[2020-11-17] MEDS: Ascorbic Acid 500 MG Tab PO SCH (09:53)
[2020-11-17] MEDS: Ferrous Sulfate 325 MG Tab PO SCH (09:54)
[2020-11-17] MEDS: Ezetimibe 10 MG Tab PO SCH (09:54)
[2020-11-17] MEDS: traMADol 50 MG Tab PO SCH (09:54)
[2020-11-17] MEDS: Metoprolol Succinate 50 MG Tab.ER PO SCH (09:54)
[2020-11-17] MEDS: Aspirin 81 MG Tab.EC PO SCH (09:55)
[2020-11-17] MEDS: Lidocaine 5% 700 MG Patch TOP SCH (09:55)
[2020-11-17] MEDS: Polyethylene Glycol 3350 Powder 17 GM Packet PO SCH (09:56)
[2020-11-17] MEDS: Magnesium Hydroxide 400 MG/5 ML Susp 30 ML Cup PO SCH (09:56)
[2020-11-17] MEDS: CILOSTAZOL 100 MG PO SCH (09:56)
[2020-11-17] MEDS ORDERED: Warfarin 2.5 MG Tab PO ONE (10:00)
[2020-11-17] MEDS ORDERED: Warfarin 5 MG Tab PO ONE (11:45)
== END 2020-11-17 11:35 | DRG 563 ==
LOC: DL.ED 10:59 → DL.MS 12:49
PROVIDERS: ADMIT Internal Medicine; ATTEND Internal Medicine
DX: M25.512 Pain in left shoulder (principal); M25.522 Pain in left elbow; S46.012A Strain of muscle(s) and tendon(s) of the rotator cuff of left shoulder, initial encounter; S83.91XA Sprain of unspecified site of right knee, initial encounter; G89.29 Other chronic pain; I48.91 Unspecified atrial fibrillation; M19.90 Unspecified osteoarthritis, unspecified site; H35.30 Unspecified macular degeneration; K59.00 Constipation, unspecified; D50.9 Iron deficiency anemia, unspecified; I25.10 Atherosclerotic heart disease of native coronary artery without angina pectoris; K21.9 Gastro-esophageal reflux disease without esophagitis; Z20.822 Contact with and (suspected) exposure to COVID-19; E78.5 Hyperlipidemia, unspecified; I11.0 Hypertensive heart disease with heart failure; N52.9 Male erectile dysfunction, unspecified; K57.90 Diverticulosis of intestine, part unspecified, without perforation or abscess without bleeding; K80.20 Calculus of gallbladder without cholecystitis without obstruction; D35.01 Benign neoplasm of right adrenal gland; M85.80 Other specified disorders of bone density and structure, unspecified site; M48.00 Spinal stenosis, site unspecified; I27.20 Pulmonary hypertension, unspecified; I73.9 Peripheral vascular disease, unspecified; G47.33 Obstructive sleep apnea (adult) (pediatric); J39.8 Other specified diseases of upper respiratory tract; H54.7 Unspecified visual loss; E78.00 Pure hypercholesterolemia, unspecified; I50.9 Heart failure, unspecified; F17.210 Nicotine dependence, cigarettes, uncomplicated; Z86.718 Personal history of other venous thrombosis and embolism; Z79.82 Long term (current) use of aspirin; Z79.01 Long term (current) use of anticoagulants; Z79.899 Other long term (current) drug therapy; Z90.49 Acquired absence of other specified parts of digestive tract; Z28.82 Immunization not carried out because of caregiver refusal; Z73.6 Limitation of activities due to disability; Z98.49 Cataract extraction status, unspecified eye; Z71.6 Tobacco abuse counseling; W05.0XXA Fall from non-moving wheelchair, initial encounter
CPT/HCPCS: 0240U; 36415; 71045; 73221; 73560; 80053; 81001; 82272; 82728; 83540; 83550; 85018; 85025; 85610; 97110; 97161; 97166; 97530; 97535; 99284; A9270-GY; J1756; J2270; U0002

== ENCOUNTER 2021-02-12 17:21 | Emergency (ER) | payer MEDICARE, BC ==
--- NOTE | 2021-02-12 19:13 | CR ---
PROCEDURE INFORMATION: Exam: XR Abdomen Exam date and time: 02/12/2021 6:05 PM Age: 81 years old Clinical indication: Other: Right sided pain; Additional info: Abdomen pain TECHNIQUE: Imaging protocol: XR of the abdomen. Views: 2 Views. Upright and supine views. COMPARISON: CR Chest 1V Frontal 11/10/2020 1:48 PM FINDINGS: Diaphragm: Diaphragmatic calcifications are present bilaterally. Gastrointestinal tract: A calcification is present within the pelvis on the right at the level of the inferior sacroiliac joint. It measures approximately 0.6 x 0.4 cm. Is unclear whether this is vascular in nature, ingested or could be a distal ureteral calculus. Could consider CT scan for additional assessment if indicated desired clinically. Bowel gas pattern is unremarkable. No obstruction or free air identified. Intraperitoneal space: No free air identified Bones/joints: Moderate grade degenerative changes are present within the lumbar spine. [id number] grade degenerative changes are present within the hip joints. No definite fractures identified. Mild convex right lumbar scoliosis is present. IMPRESSION: 1. Calcified stone present in the pelvis on the right at the level of the inferior sacroiliac joint. Is unclear whether this could be a ureteral calculus, potentially an ingested substance or vascular in nature. If there is right flank pain, could consider CT scan for more accurate localization.
--- NOTE | 2021-02-12 19:14 | CR ---
PROCEDURE INFORMATION: Exam: XR Chest Exam date and time: 02/12/2021 6:07 PM Age: 81 years old Clinical indication: Other: Right sided pain; Patient HX: No trauma; Additional info: Abdomen pain TECHNIQUE: Imaging protocol: XR of the chest. Views: 2 views. COMPARISON: CR Chest 1V Frontal 11/10/2020 1:48 PM FINDINGS: Lungs: There is mild increase in interstitial markings within the lungs. This is nonspecific. No pneumonia or pulmonary edema is present. Pleural spaces: Unremarkable. No pleural effusion. No pneumothorax. Heart/Mediastinum: Unremarkable. No cardiomegaly. Bones/joints: Unremarkable. IMPRESSION: Chronic appearing interstitial change including areas of pleural calcification. No acute cardiopulmonary disease identified.
== END 2021-02-12 19:44 | disposition left against medical advice (07) ==
LOC: DL.ED 17:21
DX: Z53.21 Procedure and treatment not carried out due to patient leaving prior to being seen by health care provider (principal)
CPT/HCPCS: 71046; 74018; 74019

== ENCOUNTER 2023-09-26 09:36 | Emergency (ER) | payer MEDICARE, BC ==
[2023-09-26] MEDS: Lactulose Soln 10 GM/15 ML 30 ML UD Cup PO ONE (10:36)
[2023-09-26] MEDS: Bisacodyl 5 MG Tab PO ONE (10:37)
[2023-09-26] MEDS: Menthol/Zinc Oxide Ointment 113 GM Tube TOP SCH (11:47)
== END 2023-09-26 12:15 | disposition home or self-care (01) ==
LOC: DL.ED 09:36
DX: K59.00 Constipation, unspecified (principal); L89.309 Pressure ulcer of unspecified buttock, unspecified stage; I11.0 Hypertensive heart disease with heart failure; I50.9 Heart failure, unspecified; I25.10 Atherosclerotic heart disease of native coronary artery without angina pectoris; Z79.51 Long term (current) use of inhaled steroids; Z79.899 Other long term (current) drug therapy; Z79.01 Long term (current) use of anticoagulants
CPT/HCPCS: 74021; 99283; A9270

== ENCOUNTER 2024-04-04 22:51 | Emergency (ER) | payer MEDICARE, BC ==
[2024-04-04] MEDS ORDERED: Sodium Chloride 0.9% 10 ML Syringe FLUSH PRN (23:16)
[2024-04-04 23:36] LABS: BASOPHILS PERCENT AUTO 0.6 % (0.0-1.0); EOSINOPHILS PERCENT AUTO 1.9 % (1.0-3.0); HEMATOCRIT 37.9 % (40.0-54.0); HEMOGLOBIN 12.3 g/dL (14.0-18.0); LYMPHOCYTES PERCENT AUTO 6.6 % (20.5-50.1); MEAN CORPUSCULAR HEMOGLOBIN 30.1 pg (27.0-34.0); MEAN CORPUSCULAR HGB CONC 32.5 g/dL (33.0-35.0); MEAN CORPUSCULAR VOLUME 92.7 fL (80-100); MONOCYTES PERCENT AUTO 12.1 % (2-8); NEUTROPHILS PERCENT AUTO 78.8 % (42.2-75.2); PLATELET COUNT,PLT 208 10^3/uL (150-450); RED BLOOD CELL COUNT 4.09 10^6/uL (4.6-6.2); WHITE BLOOD CELL COUNT,WBC 7.3 10^3/uL (5.0-10.0)
[2024-04-05 00:08] LABS: ALBUMIN 3.3 g/dL (3.4-5.0); ANION GAP 14.2 mEq/L (7-13); BILIRUBIN TOTAL 0.6 mg/dL (0.2-1.0); BUN/CREATININE RATIO 24.2 (No establ ref range); CALCIUM 9.1 mg/dL (8.5-10.1); CREATININE 1.24 mg/dL (0.70-1.30); EST CRCL DRUG DOSING (CG) 44.15 mL/min; POTASSIUM,K 4.2 mmol/L (3.5-5.1); PROTEIN TOTAL,TP 7.1 g/dL (6.4-8.2)
[2024-04-05 00:16] LABS: A/G RATIO 0.87
[2024-04-05 00:26] LABS: PTT,PARTIAL THROMBOPLSTIN TIME 44.7 SEC (22.0-34.0)
== END 2024-04-05 02:31 | disposition home or self-care (01) ==
LOC: DL.ED 22:51
DX: S00.81XA Abrasion of other part of head, initial encounter (principal); R10.31 Right lower quadrant pain; R42 Dizziness and giddiness; I25.10 Atherosclerotic heart disease of native coronary artery without angina pectoris; I11.0 Hypertensive heart disease with heart failure; I50.9 Heart failure, unspecified; E78.00 Pure hypercholesterolemia, unspecified; F17.210 Nicotine dependence, cigarettes, uncomplicated; Z90.49 Acquired absence of other specified parts of digestive tract; Z79.51 Long term (current) use of inhaled steroids; Z79.01 Long term (current) use of anticoagulants; Z79.899 Other long term (current) drug therapy; W05.0XXA Fall from non-moving wheelchair, initial encounter
CPT/HCPCS: 36415; 70450; 73700-RT; 80053; 85025; 85610; 85730; 99284

== ENCOUNTER 2024-07-19 16:48 | Emergency (ER) | payer MEDICARE, BC ==
[2024-07-19 18:28] LABS: BASOPHILS PERCENT AUTO 0.3 % (0.0-1.0); EOSINOPHILS PERCENT AUTO 4.2 % (1.0-3.0); HEMATOCRIT 41.7 % (40.0-54.0); HEMOGLOBIN 13.7 g/dL (14.0-18.0); LYMPHOCYTES PERCENT AUTO 8.9 % (20.5-50.1); MEAN CORPUSCULAR HGB CONC 32.9 g/dL (33.0-35.0); MEAN CORPUSCULAR VOLUME 91.4 fL (80-100); NEUTROPHILS PERCENT AUTO 74.6 % (42.2-75.2); PLATELET COUNT,PLT 176 10^3/uL (150-450); RED BLOOD CELL COUNT 4.56 10^6/uL (4.6-6.2); WHITE BLOOD CELL COUNT,WBC 5.9 10^3/uL (5.0-10.0)
[2024-07-19 18:33] LABS: APPEARANCE,URINE CLEAR (CLEAR); BILIRUBIN,URINE NEGATIVE (NEGATIVE); COLOR,URINE YELLOW (YELLOW); GLUCOSE,URINE NEGATIVE (NEGATIVE); KETONES,URINE NEGATIVE (NEGATIVE); LEUKOCYTE ESTERASE,URINE NEGATIVE (NEGATIVE); NITRITE,URINE NEGATIVE (NEGATIVE); OCCULT BLOOD,URINE NEGATIVE (NEGATIVE); PH,URINE 5.5 (5.0-9.0); PROTEIN,URINE NEGATIVE (NEGATIVE); UROBILINOGEN,URINE 0.2 mg/dL (0.2-1.0)
[2024-07-19 18:47] LABS: A/G RATIO 0.8; ALBUMIN 3.4 g/dL (3.4-5.0); ANION GAP 9.6 mEq/L (7-13); BILIRUBIN TOTAL 0.7 mg/dL (0.2-1.0); BUN/CREATININE RATIO 21.2 (No establ ref range); CREATININE 1.13 mg/dL (0.70-1.30); EST CRCL DRUG DOSING (CG) 49.21 mL/min; POTASSIUM,K 4.6 mmol/L (3.5-5.1); PROTEIN TOTAL,TP 7.5 g/dL (6.4-8.2)
== END 2024-07-19 19:16 | disposition home or self-care (01) ==
LOC: DL.ED 16:48
DX: N47.1 Phimosis (principal); N48.89 Other specified disorders of penis; I25.10 Atherosclerotic heart disease of native coronary artery without angina pectoris; I11.0 Hypertensive heart disease with heart failure; I50.9 Heart failure, unspecified; E78.00 Pure hypercholesterolemia, unspecified; Z79.899 Other long term (current) drug therapy; Z79.01 Long term (current) use of anticoagulants
CPT/HCPCS: 36415; 80053; 81003; 85025; 99283; 99284

== ENCOUNTER 2024-07-24 09:45 | Emergency (ER) | payer MEDICARE, BC ==
[2024-07-24] MEDS: Lidocaine 2% Jelly 10 ML Urojet MUCMEM ONE (10:35)
== END 2024-07-24 11:20 | disposition home or self-care (01) ==
LOC: DL.ED 09:45
DX: N47.1 Phimosis (principal); R33.9 Retention of urine, unspecified; I11.0 Hypertensive heart disease with heart failure; I50.9 Heart failure, unspecified; I25.10 Atherosclerotic heart disease of native coronary artery without angina pectoris; E78.00 Pure hypercholesterolemia, unspecified; Z90.49 Acquired absence of other specified parts of digestive tract; Z79.899 Other long term (current) drug therapy; Z79.891 Long term (current) use of opiate analgesic; Z79.01 Long term (current) use of anticoagulants
CPT/HCPCS: 51702; 99283; 99284; A9270